=== PATIENT | female | born 1985 | race Two or more races ===

== ENCOUNTER 2021-02-05 09:29 | Outpatient (REF) | payer OTHER, SELFPAY ==
--- NOTE | ~2021-02-05 | US_ITS ---
EXAMINATION: US COMPLETE ABDOMEN WITH LIVER ELASTOGRAPHY CLINICAL INFORMATION: R74.01 - Elevation of levels of liver transaminase levels COMPARISON: None. TECHNIQUE: Real-time imaging of the abdominal viscera. Noninvasive ultrasound liver fibrosis assessment is performed using [employer]isai ElastPQ point quantification shear wave elastography (pSWE) with a C5-2 MHz transducer. Multiple elastography samples are obtained. FINDINGS: PANCREAS: The pancreas is normal in size and contour and echogenicity. No pancreatic ductal distention or retroperitoneal effusion. ABDOMINAL AORTA: The proximal, middle, and distal aortic segments are normal in caliber. INFERIOR VENA CAVA: Visualized portions are normal. LIVER: The liver is normal in size and smooth in contour. The parenchyma areas increased in echogenicity consistent with hepatic steatosis. There is no focal hepatic parenchymal lesion or intrahepatic ductal dilatation. The right lobe measures 15.3 cm in length. The left lobe measures 13.0 cm in length. Portal flow is towards the liver (hepatopetal). Shear wave liver elastography median stiffness is 1.73 m/s (reference: normal median stiffness is 1.3 m/s or less). IQR/median stiffness to assess sampling precision is 0.13 (reference: good quality data set is IQR/median stiffness of 0.15 or less). GALLBLADDER: Normal. The gallbladder is physiologically distended without evidence of stones, sludge, polyps, wall thickening or pericholecystic fluid. COMMON BILE DUCT: Normal in caliber measuring 0.3 cm in diameter. RIGHT KIDNEY: Normal. No hydronephrosis. No renal calculi. The kidney measures 10.3 cm in maximum dimension. There are 2 small cysts, midpole and lower pole, both approximately 1 cm in size. LEFT KIDNEY: Normal. No hydronephrosis. No renal calculi or focal parenchymal lesions. The kidney measures 9.7 cm in maximum dimension. SPLEEN: Normal. The spleen measures 10.4 cm in maximum dimension. FREE FLUID: None. US/US abdomen comp w elastography IMPRESSION: 1. Hepatic steatosis. Liver normal in size. No focal parenchymal lesion. 2. Liver elastography: Measurements are suggestive of compensated advanced chronic liver disease but need further test for confirmation. Note: The stage of liver fibrosis may be overestimated in the setting of elevated liver function tests. 3. No cholelithiasis or ductal dilatation. Normal pancreas. REFERENCE: Society of Radiologists in Ultrasound Liver Stiffness Thresholds (2020): LIVER STIFFNESS THRESHOLDS: *Liver Stiffness equal or less than 1.3 m/s: High probability of being normal. *Liver Stiffness less than 1.7 m/s: In the absence of other known clinical signs, rules out compensated advanced chronic liver disease. *Liver Stiffness 1.7-2.1 m/s: Suggestive of compensated advanced chronic liver disease but need further test for confirmation. *Liver Stiffness over 2.1 m/s: Rules in compensated advanced chronic liver disease. *Liver Stiffness over 2.4 m/s: Suggestive of clinically significant portal hypertension. QUALITY OF DATA SET: *IQR/Median value equal or less than 0.15 implies a quality data set. *IQR/Median value over 0.15 implies a poor quality data set. SIGNIFICANT CHANGE FROM PRIOR EXAM: Significant change if liver stiffness measurement is 10% or greater from prior exam. OTHER CONSIDERATIONS: The stage of liver fibrosis may be overestimated in the setting of acute hepatitis, liver inflammation, elevated liver function tests, hepatic vascular congestion, obstructive cholestasis, non-fasting state, and infiltrative diseases such as amyloidosis and lymphoma. In some patients with NAFLD, the liver stiffness thresholds for compensated advanced chronic liver disease may be lower. In causes other than viral hepatitis and NAFLD, liver stiffness thresholds are not well established.
== END 2021-02-05 09:30 | disposition home or self-care (01) ==
LOC: HO.US 09:29
PROVIDERS: PCP Internal Medicine; Visit Provider Internal Medicine
DX: R74.01 Elevation of levels of liver transaminase levels (principal)
CPT/HCPCS: 76705; 76981

== ENCOUNTER 2021-04-02 10:25 | Outpatient (REF) | payer OTHER, SELFPAY ==
[2021-04-02 11:42] LABS: Alanine Aminotransferase 103 U/L (0-31); Albumin Level 4.4 g/dL (3.5-5.0); Alkaline Phosphatase 145 U/L (39-117); Anion Gap 14 (12-20); Aspartate Amino Transferase 77 U/L (5-31); Bilirubin Total 0.5 mg/dL (0.0-1.0); Blood Urea Nitrogen 6 mg/dL (9-16); Calcium 9.4 mg/dL (8.4-10.2); Carbon Dioxide 27 mmol/L (22-29); Chloride 103 mmol/L (96-108); Cholesterol 221 mg/dL; Estimated Glomerular Filt Rate > 60; Glucose Fasting 170 mg/dL (60-99); HDL Cholesterol 45 mg/dL; LDL Cholesterol Calculated 144 mg/dl; Potassium 3.9 mmol/L (3.3-5.1); Sodium 140 mmol/L (135-145); Total Protein 7.7 g/dL (6.5-8.0); Triglycerides 164 mg/dL
[2021-04-07 12:56] LABS: Vitamin D 25-OH, D2 <4 ng/mL; Vitamin D 25-OH, D3 31 ng/mL; Vitamin D 25-OH, Total 31 ng/mL (30-100)
== END 2021-04-02 10:26 | disposition home or self-care (01) ==
LOC: HO.LAB 10:25
PROVIDERS: PCP Internal Medicine; Visit Provider Internal Medicine
DX: R73.02 Impaired glucose tolerance (oral) (principal); E78.5 Hyperlipidemia, unspecified; E55.9 Vitamin D deficiency, unspecified
CPT/HCPCS: 36415; 80053; 80061; 82306

== ENCOUNTER 2021-04-08 11:02 | Outpatient (REF) | payer OTHER, SELFPAY ==
[2021-04-08 14:15] LABS: HCG Quantitative < 2 mIU/mL; Thyroid Stimulating Hormone 1.45 uIU/mL (0.32-4.0)
[2021-04-09 01:46] LABS: CT PCR NOT DETECTED (Not Detect.); NG PCR NOT DETECTED (Not Detect.)
[2021-04-09 09:09] LABS: BV Int Neg Control Negative (Negative); BV Int Pos Control Positive (Positive)
[2021-04-10 18:51] LABS: Follicle Stimulating Hormone 9.8 mIU/mL; Prolactin 7.5 ng/mL
[2021-04-10 19:17] LABS: DHEA Sulfate 111 mcg/dL (23-266)
[2021-04-11 06:07] LABS: HPV mRNA E6/E7 rflx Not Detected (Not Detected)
[2021-04-13 15:31] LABS: Testosterone, Free 6.4 pg/mL (0.1-6.4); Testosterone, Total 33 ng/dL (2-45)
== END 2021-04-08 11:03 | disposition home or self-care (01) ==
LOC: HO.LAB 11:02
PROVIDERS: PCP Internal Medicine; Visit Provider Advanced Practice Midwife
DX: Z01.411 Encounter for gynecological examination (general) (routine) with abnormal findings (principal); Z11.51 Encounter for screening for human papillomavirus (HPV); N92.6 Irregular menstruation, unspecified; L68.0 Hirsutism; N89.8 Other specified noninflammatory disorders of vagina; R23.2 Flushing; Z20.2 Contact with and (suspected) exposure to infections with a predominantly sexual mode of transmission
CPT/HCPCS: 36415; 82627; 83001; 83498; 84146; 84402; 84403; 84443; 84702; 87480; 87491; 87510; 87591; 87624; 87660; 88142

== ENCOUNTER → 2021-04-15 11:25 | Outpatient (BNVA) | payer OTHER, SELFPAY | PROVIDERS: PCP Internal Medicine; Visit Provider Advanced Practice Midwife | DX: Z71.2 Person consulting for explanation of examination or test findings (principal); N92.6 Irregular menstruation, unspecified | CPT/HCPCS: 99212 ==

== ENCOUNTER 2021-05-28 10:42 | Outpatient (REF) | payer OTHER, SELFPAY ==
[2021-05-28 12:53] LABS: Alanine Aminotransferase 127 U/L (0-31); Albumin Level 4.2 g/dL (3.5-5.0); Alkaline Phosphatase 149 U/L (39-117); Anion Gap 13 (12-20); Aspartate Amino Transferase 95 U/L (5-31); Bilirubin Total 0.6 mg/dL (0.0-1.0); Blood Urea Nitrogen 7 mg/dL (9-16); Calcium 9.5 mg/dL (8.4-10.2); Carbon Dioxide 27 mmol/L (22-29); Chloride 102 mmol/L (96-108); Estimated Glomerular Filt Rate > 60; Glucose Fasting 252 mg/dL (60-99); Potassium 3.7 mmol/L (3.3-5.1); Sodium 138 mmol/L (135-145); Total Protein 7.5 g/dL (6.5-8.0)
[2021-06-01 13:37] LABS: Vitamin D 25-OH, D2 <4 ng/mL; Vitamin D 25-OH, D3 30 ng/mL; Vitamin D 25-OH, Total 30 ng/mL (30-100)
== END 2021-05-28 10:43 | disposition home or self-care (01) ==
LOC: HO.LAB 10:42
PROVIDERS: PCP Internal Medicine; Visit Provider Internal Medicine
DX: R74.01 Elevation of levels of liver transaminase levels (principal); E55.9 Vitamin D deficiency, unspecified
CPT/HCPCS: 36415; 80053; 82306

== ENCOUNTER 2021-08-04 09:29 | Outpatient (REF) | payer OTHER, SELFPAY ==
[2021-08-04 11:26] LABS: MANUAL DIFF FLAG NO
[2021-08-04 11:28] LABS: Basophils Percent Auto 0.3 % (0-2); Eosinophils Absolute Auto 0.1 X10*3/uL (0.0-0.4); Eosinophils Percent Auto 1.3 % (0-4); Hematocrit 40.6 % (37-47); Hemoglobin 13.6 g/dl (12.0-16.0); Imm Gran Abs Auto 0.02 X10*3/uL (0.00-0.03); Imm Gran Pct Auto 0.2 % (0.0-0.4); Lymphocytes Absolute Auto 2.3 X10*3/uL (1.2-4.9); Lymphocytes Percent Auto 24.6 % (20-40); Mean Corpuscular HGB Conc 33.5 g/dl (31.0-35.0); Mean Corpuscular Hemoglobin 26.2 pg (27.0-33.0); Mean Corpuscular Volume 78.2 fL (80-98); Mean Platelet Volume 11.5 fL (9.4-12.3); Monocytes Absolute Auto 0.4 X10*3/uL (0.1-1.2); Monocytes Percent Auto 4.7 % (2-11); Neutrophils Absolute Auto 6.5 X10*3/uL (2.0-8.3); Neutrophils Percent Auto 68.9 % (45-73); Platelet Count 255 X10*3/uL (160-400); Red Blood Count 5.19 X10*6/uL (4.20-5.50); Red Cell Distribution Width 14.3 % (11.0-16.0); White Blood Count 9.4 X10*3/uL (4.8-10.8)
[2021-08-04 12:21] LABS: Ferritin 210 ng/mL (10-122)
[2021-08-04 12:35] LABS: HBS Num1 2.87 mIU/mL (0-7.99); HBsAGNum1 0.22 S/CO (0.00-0.99); HIV AB/AG Nonreactive (Nonreactive); HIV Num 1 0.04 S/CO (0.00-0.99); Hepatitis B Core Antibody Nonreactive (Nonreactive); Hepatitis B Surface Antigen Negative (Negative); ~Hepatitis B Surface Antibody NONREACTIVE (Nonreactive); ~Hepatitis C Antibody Nonreactive (Nonreactive)
[2021-08-04 13:16] LABS: Estimated Average Glucose 220 mg/dL; Hemoglobin A1c % 9.3 %
[2021-08-04 13:32] LABS: Gamma Glutamyl Transpeptidase 94 U/L (7-33)
[2021-08-05 08:33] LABS: ~Hepatitis A Antibody IgM Nonreactive (Nonreactive)
[2021-08-05 10:44] LABS: Hepatitis A Antibody IgM 0.18 Index (0-0.79)
[2021-08-06 12:31] LABS: Anti Nuclear Antibody Screen NEGATIVE (NEGATIVE)
[2021-08-08 00:51] LABS: Smooth Muscle Antibody <20 U (<20)
[2021-08-08 12:02] LABS: Alpha Fetoprotein 2.2 ng/mL
[2021-08-08 13:06] LABS: Mitochondrial Antibodies NEGATIVE (NEGATIVE)
== END 2021-08-04 09:30 | disposition home or self-care (01) ==
LOC: HO.LAB 09:29
PROVIDERS: PCP Internal Medicine; Referring Provider Internal Medicine; Visit Provider Nurse Practitioner
DX: Z01.84 Encounter for antibody response examination (principal); Z11.4 Encounter for screening for human immunodeficiency virus [HIV]; Z11.59 Encounter for screening for other viral diseases; R74.01 Elevation of levels of liver transaminase levels
CPT/HCPCS: 36415; 82105; 82728; 82977; 83036; 85025; 86038; 86039; 86255; 86256; 86704; 86706; 86709; 86803; 87340; 87389; Q3014

== ENCOUNTER → 2021-09-15 08:56 | Outpatient (BNVA) | payer OTHER, SELFPAY | PROVIDERS: PCP Internal Medicine; Visit Provider Nurse Practitioner | DX: K75.81 Nonalcoholic steatohepatitis (NASH) (principal); E11.9 Type 2 diabetes mellitus without complications | CPT/HCPCS: Q3014 ==

== ENCOUNTER 2021-10-29 08:18 | Outpatient (REF) | payer OTHER, SELFPAY ==
[2021-10-30 10:08] LABS: BV Int Neg Control Negative (Negative); BV Int Pos Control Positive (Positive)
== END 2021-10-29 08:19 | disposition home or self-care (01) ==
LOC: HO.LAB 08:18
PROVIDERS: PCP Internal Medicine; Visit Provider Advanced Practice Midwife
DX: Z30.432 Encounter for removal of intrauterine contraceptive device (principal); N89.8 Other specified noninflammatory disorders of vagina; L28.0 Lichen simplex chronicus
CPT/HCPCS: 58301; 87480; 87510; 87660

== ENCOUNTER → 2021-11-12 10:04 | Outpatient (BNVA) | payer OTHER, SELFPAY | PROVIDERS: PCP Internal Medicine; Visit Provider Dietitian, Registered | DX: E11.65 Type 2 diabetes mellitus with hyperglycemia (principal); K75.81 Nonalcoholic steatohepatitis (NASH) | CPT/HCPCS: 97802 ==

== ENCOUNTER 2021-12-18 09:29 | Outpatient (REF) | payer OTHER, SELFPAY ==
[2021-12-18 11:51] LABS: Alanine Aminotransferase 98 U/L (0-31); Albumin Level 3.8 g/dL (3.5-5.0); Alkaline Phosphatase 132 U/L (39-117); Anion Gap 14 (12-20); Aspartate Amino Transferase 51 U/L (5-31); Bilirubin Direct 0.2 mg/dL (0.0-0.5); Bilirubin Total 0.2 mg/dL (0.0-1.0); Blood Urea Nitrogen 6 mg/dL (9-16); Carbon Dioxide 23 mmol/L (22-29); Chloride 104 mmol/L (96-108); Cholesterol 206 mg/dL; Estimated Glomerular Filt Rate > 60; Glucose Fasting 226 mg/dL (60-99); HDL Cholesterol 37 mg/dL; LDL Cholesterol Calculated 137 mg/dl; Potassium 3.9 mmol/L (3.3-5.1); Sodium 137 mmol/L (135-145); Total Protein 7.1 g/dL (6.5-8.0); Triglycerides 160 mg/dL
[2021-12-18 12:24] LABS: Creatinine Urine 98.38 mg/dL
[2021-12-22 08:35] LABS: Alpha Fetoprotein 2.1 ng/mL
[2021-12-24 12:22] LABS: Vitamin D 25-OH, D2 <4 ng/mL; Vitamin D 25-OH, D3 27 ng/mL; Vitamin D 25-OH, Total 27 ng/mL (30-100)
== END 2021-12-18 09:30 | disposition home or self-care (01) ==
LOC: HO.LAB 09:29
PROVIDERS: PCP Internal Medicine; Referring Provider Internal Medicine; Visit Provider Nurse Practitioner
DX: K75.81 Nonalcoholic steatohepatitis (NASH) (principal); E11.9 Type 2 diabetes mellitus without complications; E55.9 Vitamin D deficiency, unspecified; E78.5 Hyperlipidemia, unspecified
CPT/HCPCS: 36415; 80053; 80061; 80076; 82043; 82105; 82248; 82306; 99212

== ENCOUNTER → 2021-12-23 10:46 | Outpatient (BNVA) | payer OTHER, SELFPAY | PROVIDERS: PCP Internal Medicine; Visit Provider Dietitian, Registered | DX: E11.65 Type 2 diabetes mellitus with hyperglycemia (principal); K75.81 Nonalcoholic steatohepatitis (NASH) | CPT/HCPCS: 97803 ==

== ENCOUNTER → 2022-02-04 10:05 | Outpatient (BNVA) | payer OTHER, SELFPAY | PROVIDERS: PCP Internal Medicine; Visit Provider Dietitian, Registered | DX: E11.65 Type 2 diabetes mellitus with hyperglycemia (principal); K75.81 Nonalcoholic steatohepatitis (NASH) | CPT/HCPCS: 97803 ==

== ENCOUNTER → 2022-03-23 10:27 | Outpatient (BNVA) | payer OTHER, SELFPAY | PROVIDERS: PCP Internal Medicine; Visit Provider Dietitian, Registered | DX: E11.65 Type 2 diabetes mellitus with hyperglycemia (principal); K75.81 Nonalcoholic steatohepatitis (NASH) | CPT/HCPCS: 97803 ==

== ENCOUNTER → 2022-04-13 10:14 | Outpatient (BNVA) | payer OTHER, SELFPAY | PROVIDERS: PCP Internal Medicine; Visit Provider Advanced Practice Midwife | DX: Z13.89 Encounter for screening for other disorder (principal) ==

== ENCOUNTER 2022-06-21 09:37 | Outpatient (REF) | payer OTHER, SELFPAY ==
--- NOTE | ~2022-06-21 | US_ITS ---
EXAMINATION: US ABDOMEN LIMITED CLINICAL INFORMATION: Nonalcoholic steatohepatitis (MIRANDA). COMPARISON: US abdomen complete with liver elastography 02/05/2021. TECHNIQUE: Real-time imaging of the right upper quadrant abdominal viscera. FINDINGS: PANCREAS: Normal in size and contour and echogenicity. No pancreatic ductal distention. LIVER: Normal in size and smooth in contour. There is increased hepatic parenchymal echogenicity consistent with hepatic steatosis. No focal hepatic parenchymal lesion or intrahepatic biliary ductal dilatation. Color Doppler shows portal flow towards the liver. GALLBLADDER: Normal. The gallbladder is physiologically distended without evidence of stones, sludge, polyps, wall thickening or pericholecystic fluid. COMMON BILE DUCT: Normal in caliber measuring 0.4 cm in diameter. RIGHT KIDNEY: Normal in size measuring 9.7 cm in length. There is normal parenchymal thickness and echogenicity. No hydronephrosis or visible calculi. There are small cysts interpolar region 1.2 cm and lower pole 1.1 cm. No additional imaging follow-up recommended. FREE FLUID: None. US/US abdomen limited IMPRESSION: -Hepatic steatosis. No focal parenchymal lesion. -Portal flow towards the liver. No ascites. -No cholelithiasis or ductal dilatation.
== END 2022-06-21 09:38 | disposition home or self-care (01) ==
LOC: HO.US 09:37
PROVIDERS: Visit Provider Nurse Practitioner
DX: K75.81 Nonalcoholic steatohepatitis (NASH) (principal)
CPT/HCPCS: 76705

== ENCOUNTER 2022-07-14 10:55 | Outpatient (REF) | payer OTHER, SELFPAY ==
[2022-07-14 12:15] LABS: Alanine Aminotransferase 58 U/L (0-31); Albumin Level 4.1 g/dL (3.5-5.0); Alkaline Phosphatase 110 U/L (39-117); Aspartate Amino Transferase 51 U/L (5-31); Bilirubin Direct 0.2 mg/dL (0.0-0.5); Bilirubin Total 0.4 mg/dL (0.0-1.0); Total Protein 7.3 g/dL (6.5-8.0)
[2022-07-14 12:42] LABS: Vitamin D 25-OH Total 27.8 ng/mL (>30)
[2022-07-14 14:04] LABS: Creatinine Urine 203.54 mg/dL; Microalbum/Creatinine Ratio Ur 8.8 ug/mg cr
[2022-07-16 13:41] LABS: Alpha Fetoprotein 1.6 ng/mL
== END 2022-07-14 10:56 | disposition home or self-care (01) ==
LOC: HO.LAB 10:55
PROVIDERS: PCP Internal Medicine; Visit Provider Nurse Practitioner
DX: K75.81 Nonalcoholic steatohepatitis (NASH) (principal); E55.9 Vitamin D deficiency, unspecified; E11.9 Type 2 diabetes mellitus without complications
CPT/HCPCS: 36415; 80076; 82043; 82105; 82306; 99212

== ENCOUNTER 2022-08-04 14:37 | Emergency (ER) | payer OTHER, SELFPAY ==
[2022-08-04 15:28] VITALS: BP 136/67; PULSE 85; RESP 18; TEMP 36.9; O2SAT 98; BMI 37.3
[2022-08-04 20:27] VITALS: BP 119/88; PULSE 83; RESP 16; TEMP 36.8; O2SAT 99
--- NOTE | 2022-08-04 21:43 | ED_ITS ---
HPI - Ear Problem General Chief complaint: Ear Problems Stated complaint: R ear/eye pain Time Seen by Provider: 08/04/22 17:37 History of Present Illness HPI Narrative: 37-year-old female presents with right ear and sinus pain. Patient states that she for the past 3 days she has felt a constant pressure/pain in her right ear, as well as her right sinuses with associated headache. Denies fever, chills, vision changes, nausea, vomiting, diarrhea,nasal congestion, rhinorrhea, sore throat, cough, shortness of breath, chest pain. Denies discharge from ear, denies sick contacts. patient has not tried anything to relieve her symptoms. MD Complaint: ear pain Location: right ear Duration: constant Severity: mild Discharge from ear: no Associated symptoms ear: headache Related Data Home Medications Medication Instructions Recorded Confirmed naproxen 375 mg tablet 375 mg PO BID PRN 01/26/21 06/23/22 naratriptan 2.5 mg tablet 2.5 mg PO DAILY PRN 07/14/22 Previous Rx's Medication Instructions Recorded blood sugar diagnostic (FreeStyle #100 ea 05/28/21 Test strips) blood-glucose meter (FreeStyle #1 ea 05/28/21 [place] kit) lancets 28 gauge (FreeStyle #100 ea 05/28/21 Lancets) clotrimazole-betamethasone 1 1 appl topical BID PRN itching 7 10/29/21 %-0.05 % topical cream days #45 grams trazodone 50 mg tablet 50 mg PO BEDTIME PRN sleep 90 days 02/18/22 #90 tabs citalopram 20 mg tablet 20 mg PO DAILY 90 days #90 tabs 05/20/22 metformin 500 mg tablet 500 mg PO BID 90 days #180 tabs 06/29/22 cetirizine 10 mg tablet (Zyrtec) 10 mg PO DAILY #14 tabs 08/04/22 fluticasone propionate 50 1 spray intranasal BID #16 grams 08/04/22 mcg/actuation nasal spray,suspension (Flonase Allergy Relief) ibuprofen 600 mg tablet 600 mg PO Q8H PRN headache #14 08/04/22 tabs Allergies Allergy/AdvReac Type Severity Reaction Status Date / Time tetracycline [Tetracycline] Allergy Mild SWELLING Verified 07/14/22 10:29 Review of Systems Review of Systems: Constitutional: No Fever, No Chills ENT/Mouth: +right ear pain/pressure, +sinus pressure. No sore throat, No Rhinorrhea, No Swallowing Difficulty Eyes: + watery right eye, No Eye Pain, No Swelling, No Redness Cardiovascular: No Chest Pain, No SOB, No Orthopnea, No Edema Respiratory: No Cough, No Sputum, No Wheezing, No dyspnea Gastrointestinal: No Nausea, No Vomiting, No Diarrhea, No abdominal Pain, No Hematochezia, No Melena Genitourinary: No Dysuria, No Urinary Frequency, No Hematuria Musculoskeletal: No joint pain, No Myalgias Skin: No Skin Lesions, No rash Neuro: + Headache, No Weakness, No Numbness, No Dizziness Psych: No Anxiety/Panic, No Depression PMFSH Past Medical History Medical History Depression Diabetes mellitus Hypovitaminosis D Impaired glucose tolerance Insomnia Migraines Mild recurrent major depression Obese Transaminitis Surgical History Encounter for IUD removal H/O colonoscopy H/O LEEP Family History Family History Father Heart disease CVD (cardiovascular disease) Prostate cancer Mother Drug overdose Maternal Grandmother No problems noted. Maternal Grandfather No problems noted. Paternal Grandmother No problems noted. Paternal Grandfather No problems noted. Son In good health Son In good health Sister In good health Brother No problems noted. Brother No problems noted. Brother No problems noted. Social History Social History Housing: Apartment Alcohol intake: never Patient Tobacco Use Status: Never used Tobacco Tobacco use type: Cigarette e-Cigarette/Vaping Use: Never Used Second Hand Smoke Exposure: No Advance Directives: No Advance Directives Information Provided: No service: No Current occupational status: employed Physical Exam Vital Signs: Vital Signs: Last Vital Signs Temp 98.2 F 08/04/22 20:27 Pulse 83 08/04/22 20:27 Resp 16 08/04/22 20:27 BP 119/88 08/04/22 20:27 Pulse Ox 99 08/04/22 20:27 O2 Del Method 08/04/22 20:27 BMI result Body Mass Index 37.3 Const: Other: Appearance: Alert. Oriented X3. No acute distress. Eyes: Pupils equal, round and reactive to light. ENT: + bilateral serous effusion right worse than left, No erythema or bulging, external canals clear. Pharynx normal. Neck: Normal inspection. Neck supple. CVS: Normal heart rate and rhythm. Pulses normal. Respiratory: No respiratory distress. Breath sounds normal. Skin: Skin warm and dry. Normal skin color. Normal skin turgor. No rashes. Extremities: No lower extremity edema. Neuro: Oriented X 3. No motor deficit. No sensory deficit. Course Course Course Narrative: 37-year-old female presenting with 3 days of right ear pain/pressure and right sinus pressure with associated headache. On exam, patient afebrile, VSS, serous effusions of bilateral TMs with the right being more pronounced, no erythema or bulging, not consistent with infection, oropharynx clear. presentation consistent with early viral rhinosinusitis, no indication of bacterial infection. Will provide medication for symptomatic relief. Patient is stable to be discharged home. Critical Care Time Critical Care Time Critical Care Time: No Discharge Plan Discharge Clinical Impression: Rhinosinusitis Patient Disposition: Home, Self-Care Instructions: Rhinosinusitis (ED) Additional Instructions: Take medications as prescribed. If you develop new or worsening symptoms call 911 or come back to the ER for further evaluation. Prescriptions: New fluticasone propionate [Flonase Allergy Relief] 50 mcg/actuation spray,suspension 1 spray intranasal BID Qty: 16 0RF Rx Instructions: administer into each nostril 1 time in the morning and 1 time at night ibuprofen 600 mg tablet 600 mg PO Q8H PRN (Reason: headache) Qty: 14 0RF cetirizine [Zyrtec] 10 mg tablet 10 mg PO DAILY Qty: 14 0RF No Action trazodone 50 mg tablet 50 mg PO BEDTIME PRN (Reason: sleep) 90 Days Qty: 90 3RF citalopram 20 mg tablet 20 mg PO DAILY 90 Days Qty: 90 1RF metformin 500 mg tablet 500 mg PO BID 90 Days Qty: 180 0RF naproxen 375 mg tablet 375 mg PO BID PRN (DME) blood-glucose meter [FreeStyle [place]] Kit See Rx Instructions .ROUTE .MEDSUPPLY Qty: 1 0RF Rx Instructions: As directed (DME) lancets [FreeStyle Lancets] 28 gauge misc See Rx Instructions .ROUTE .MEDSUPPLY Qty: 100 3RF Rx Instructions: Use 1 lancet once a day (DME) FreeStyle Test Strip See Rx Instructions .ROUTE .MEDSUPPLY Qty: 100 3RF Rx Instructions: Use 1 test strip once a day clotrimazole-betamethasone 1-0.05 % cream 1 appl topical BID PRN (Reason: itching) 7 Days Qty: 45 0RF naratriptan 2.5 mg tablet 2.5 mg PO DAILY PRN Interventions: ED Discharge Assessment Last Done: 08/04/22 22:30 Discharge Date/Time: 08/04/22 22:32
== END 2022-08-04 22:32 | disposition home or self-care (01) ==
PROVIDERS: Emergency Provider Internal Medicine; PCP Internal Medicine
DX: J32.9 Chronic sinusitis, unspecified (principal); E11.9 Type 2 diabetes mellitus without complications; Z79.84 Long term (current) use of oral hypoglycemic drugs
CPT/HCPCS: 99282; 99283

== ENCOUNTER → 2022-08-10 12:54 | Outpatient (BNVA) | payer OTHER, SELFPAY | PROVIDERS: PCP Internal Medicine; Visit Provider Dietitian, Registered | DX: E11.65 Type 2 diabetes mellitus with hyperglycemia (principal); K75.81 Nonalcoholic steatohepatitis (NASH); Z71.3 Dietary counseling and surveillance | CPT/HCPCS: 97803 ==

== ENCOUNTER 2022-10-27 10:06 | Outpatient (REF) | payer OTHER, SELFPAY ==
[2022-10-27 11:08] LABS: Alanine Aminotransferase 38 U/L (0-31); Albumin Level 4.3 g/dL (3.5-5.0); Alkaline Phosphatase 115 U/L (39-117); Anion Gap 15 (12-20); Aspartate Amino Transferase 27 U/L (5-31); Bilirubin Total 0.5 mg/dL (0.0-1.0); Blood Urea Nitrogen 6 mg/dL (9-16); Calcium 9.4 mg/dL (8.4-10.2); Carbon Dioxide 26 mmol/L (22-29); Chloride 105 mmol/L (96-108); Cholesterol 248 mg/dL; Estimated Glomerular Filt Rate > 60; Glucose Fasting 119 mg/dL (60-99); HDL Cholesterol 50 mg/dL; LDL Cholesterol Calculated 173 mg/dl; Potassium 3.8 mmol/L (3.3-5.1); Sodium 142 mmol/L (135-145); Total Protein 7.4 g/dL (6.5-8.0); Triglycerides 129 mg/dL
== END 2022-10-27 10:07 | disposition home or self-care (01) ==
LOC: HO.LAB 10:06
PROVIDERS: PCP Internal Medicine; Visit Provider Internal Medicine
DX: E11.65 Type 2 diabetes mellitus with hyperglycemia (principal); K75.81 Nonalcoholic steatohepatitis (NASH); E78.5 Hyperlipidemia, unspecified; Z71.3 Dietary counseling and surveillance
CPT/HCPCS: 36415; 80053; 80061; 97803

== ENCOUNTER → 2023-02-09 15:22 | Outpatient (BNVA) | payer OTHER, SELFPAY | PROVIDERS: PCP Internal Medicine; Referring Provider Internal Medicine; Visit Provider Nurse Practitioner | DX: E11.65 Type 2 diabetes mellitus with hyperglycemia (principal); K75.81 Nonalcoholic steatohepatitis (NASH); R74.01 Elevation of levels of liver transaminase levels | CPT/HCPCS: 99212 ==

== ENCOUNTER → 2023-02-14 13:56 | Outpatient (BNVA) | payer OTHER, SELFPAY | PROVIDERS: PCP Internal Medicine; Visit Provider Dietitian, Registered | DX: E11.65 Type 2 diabetes mellitus with hyperglycemia (principal); K75.81 Nonalcoholic steatohepatitis (NASH) | CPT/HCPCS: 97803 ==

== ENCOUNTER 2023-03-04 20:28 | Emergency (ER) | payer OTHER, SELFPAY ==
[2023-03-04 20:49] VITALS: BP 120/82; PULSE 73; RESP 18; TEMP 36.3; O2SAT 98; BMI 36.3
--- NOTE | 2023-03-04 22:31 | ED_ITS ---
HPI - General Adult General Chief complaint: Eye Problems Stated complaint: R sided head pain and pink eye, sinus infection? Time Seen by Provider: 03/04/23 22:21 Source: patient, RN notes reviewed and old records reviewed Mode of arrival: ambulatory Limitations: no limitations History of Present Illness HPI narrative: 37-year-old female past medical history significant for diabetes, obesity, migraines, MIRANDA, hyperlipidemia presents for evaluation of right eye redness. Patient reports 3 days of itching and burning to her right eye. There is some watery discharge. She has no change to her vision. The patient does wear glasses as needed but does not were contacts She also reports nasal congestion and has been using nasal spray with minimal relief Denies any headache Denies getting anything in her eye but states she was ?cleaning and dusting the day before it got red. ? Related Data Home Medications Medication Instructions Recorded Confirmed naratriptan 2.5 mg tablet 2.5 mg PO DAILY PRN 07/14/22 11/16/22 Previous Rx's Medication Instructions Recorded blood sugar diagnostic (FreeStyle #100 ea 05/28/21 Test strips) blood-glucose meter (FreeStyle #1 ea 05/28/21 [place] kit) lancets 28 gauge (FreeStyle #100 ea 05/28/21 Lancets) clotrimazole-betamethasone 1 1 appl topical BID PRN itching 7 10/29/21 %-0.05 % topical cream days #45 grams cetirizine 10 mg tablet (Zyrtec) 10 mg PO DAILY #14 tabs 08/04/22 ibuprofen 600 mg tablet 600 mg PO Q8H PRN headache #14 08/04/22 tabs adult diapers briefs #120 ea 10/30/22 underpads 30 X 36 (Certainty #48 ea 10/30/22 Underpads) atorvastatin 20 mg tablet 20 mg PO BEDTIME 90 days #90 tabs 11/16/22 cholecalciferol (vitamin D3) 25 25 mcg PO DAILY 90 days #90 caps 11/16/22 mcg (1,000 unit) capsule cromolyn 4 % eye drops 1 drp ophthalmic (eye) 6XD PRN 11/16/22 itchiness in eyes 7 days #10 mL fluocinolone acetonide oil 0.01 % 5 drp otic (ear) left BID 7 days 11/16/22 ear drops (DermOtic Oil) #20 mL naproxen 375 mg tablet 375 mg PO BID PRN pain 30 days #60 11/16/22 tabs citalopram 20 mg tablet 20 mg PO DAILY 90 days #90 tabs 12/13/22 metformin 500 mg tablet 500 mg PO BID 90 days #180 tabs 12/31/22 trazodone 50 mg tablet 50 mg PO BEDTIME PRN sleep 90 days 02/13/23 #90 tabs fluticasone propionate 50 1 spray intranasal BID #16 grams 03/03/23 mcg/actuation nasal spray,suspension (Flonase Allergy Relief) ciprofloxacin HCl 0.3 % eye drops See Rx Instructions ophthalmic 03/04/23 (eye) .COMPLEX #5 mL Allergies Allergy/AdvReac Type Severity Reaction Status Date / Time tetracycline [Tetracycline] Allergy Mild SWELLING Verified 03/04/23 20:53 Review of Systems Constitutional: Constitutional: Reports as per HPI, Denies chills, Denies fever(s) and Denies headache(s) Eyes: Eyes: Denies blurry vision, Reports eye discharge, Denies dry eyes, Denies irritation, Reports itchy eyes, Denies loss of vision and Reports eye pain ENT: Denies headache(s) Respiratory: Respiratory: Denies cough Neurologic: Denies headache(s), Denies focal weakness and Denies loss of vision Allergic/Immunologic: Allergic/Immunologic: Reports itchy eyes PMFSH Past Medical History Medical History Depression Diabetes mellitus Hypovitaminosis D Impaired glucose tolerance Insomnia Migraines Mild recurrent major depression Obese Transaminitis Surgical History Encounter for IUD removal H/O colonoscopy H/O LEEP Family History Family History Father Heart disease CVD (cardiovascular disease) Prostate cancer Mother Diabetes mellitus Maternal Grandmother No problems noted. Maternal Grandfather No problems noted. Paternal Grandmother No problems noted. Paternal Grandfather No problems noted. Son In good health Son In good health Sister In good health Brother No problems noted. Brother No problems noted. Brother No problems noted. Social History Social History Housing: Apartment Alcohol intake: never Patient Tobacco Use Status: Never used Tobacco e-Cigarette/Vaping Use: Never Used Second Hand Smoke Exposure: No Advance Directives: No Advance Directives Information Provided: No service: No Current occupational status: employed Cognitive needs: No Hearing needs: No Vision needs: No Physical Exam ED Vital Signs: Vital Signs - 24 hr 03/04/23 20:49 Temperature 97.3 F Pulse Rate 73 Respiratory Rate 18 Blood Pressure 120/82 Pulse Oximetry 98 Oxygen Delivery Method Room Air BMI result Body Mass Index 36.3 Const General: healthy appearing, comfortable, no acute distress, alert and awake Nutritional Appearance: well nourished Orientation/consciousness: patient oriented x3 HENMT Head: Yes normocephalic and Yes atraumatic Throat: Yes posterior oropharynx normal Eyes Other: No obvious foreign body Eyelids: Yes eyelid abnormality (Mild right upper eyelid edema, blepharitis) Conjunctivae: conjunctival abnormal right conjunctival injection; without chemosis and without subconjunctival hemmorhages Sclerae: sclerae normal Corneas: corneas normal Pupils: Equal, round and reactive pupils present EOM: EOMs intact bilaterally Neck Neck: Yes full ROM Resp Effort & Inspection: normal respiratory effort, able to speak in complete sentences, no audible wheezes and not labored Auscultation: clear to auscultation bilaterally Cardio Rate: regular rate Rhythm: regular rhythm GI Inspection: No distended Palpation (GI): Soft to palpation, not firm, nontender, no guarding and not rigid Auscultation: normoactive bowel sounds Skin General skin exam: no rashes or lesions noted and elasticity normal Neuro General: patient oriented x3 Cranial nerves: Yes CN's II-XII intact bilaterally, Yes Equal, round and reactive pupils present and Yes Bilaterally intact EOM present Cognition (Neuro): normal cognition Extrem Other: Moving all extremities well without any obvious deformities Medical Decision Making Medical Decision Making MDM Narrative: 37-year-old female presents for evaluation of red, itchy eye with discharge, consistent with conjunctivitis. No foreign body noted, patient was not working with metal or anything to suggest foreign body. She has no visual changes will treat with topical eyedrops Differential Diagnosis Conjunctivitis Viral conjunctivitis Foreign body Glaucoma Papilledema Iritis Discharge Plan Discharge Clinical Impression: Acute conjunctivitis, right eye Patient Disposition: Home, Self-Care Instructions: Conjunctivitis (ED) Additional Instructions: Use ciprofloxacin eyedrops as directed. You may follow-up with Dr. Roa if her symptoms do not improve after the treatment Prescriptions: New ciprofloxacin HCl 0.3 % drops See Rx Instructions .ROUTE .COMPLEX Qty: 5 0RF Rx Instructions: put 1-2 drps in affected eye(s) every 2hr up to 8 times/day x2days; then 4 times/day x5days No Action (DME) adult diapers briefs XL See Rx Instructions .Route .MEDSUPPLY Qty: 120 1RF Rx Instructions: As directed (DME) underpads [Certainty Underpads] 30 X 36 pad See Rx Instructions .Route Qty: 48 3RF Rx Instructions: As directed citalopram 20 mg tablet 20 mg PO DAILY 90 Days Qty: 90 1RF metformin 500 mg tablet 500 mg PO BID 90 Days Qty: 180 0RF trazodone 50 mg tablet 50 mg PO BEDTIME PRN (Reason: sleep) 90 Days Qty: 90 3RF fluticasone propionate [Flonase Allergy Relief] 50 mcg/actuation spray,suspension 1 spray intranasal BID Qty: 16 0RF Rx Instructions: administer into each nostril 1 time in the morning and 1 time at night ibuprofen 600 mg tablet 600 mg PO Q8H PRN (Reason: headache) Qty: 14 0RF cetirizine [Zyrtec] 10 mg tablet 10 mg PO DAILY Qty: 14 0RF (DME) blood-glucose meter [FreeStyle [place]] Kit See Rx Instructions .ROUTE .MEDSUPPLY Qty: 1 0RF Rx Instructions: As directed (DME) lancets [FreeStyle Lancets] 28 gauge misc See Rx Instructions .ROUTE .MEDSUPPLY Qty: 100 3RF Rx Instructions: Use 1 lancet once a day (DME) FreeStyle Test Strip See Rx Instructions .ROUTE .MEDSUPPLY Qty: 100 3RF Rx Instructions: Use 1 test strip once a day cromolyn 4 % drops 1 drp ophthalmic (eye) 6XD PRN (Reason: itchiness in eyes) 7 Days Qty: 10 0RF fluocinolone acetonide oil [DermOtic Oil] 0.01 % drops 5 drp otic (ear) left BID 7 Days Qty: 20 0RF atorvastatin 20 mg tablet 20 mg PO BEDTIME 90 Days Qty: 90 1RF cholecalciferol (vitamin D3) 25 mcg (1,000 unit) capsule 25 mcg PO DAILY 90 Days Qty: 90 1RF naproxen 375 mg tablet 375 mg PO BID PRN (Reason: pain) 30 Days Qty: 60 1RF clotrimazole-betamethasone 1-0.05 % cream 1 appl topical BID PRN (Reason: itching) 7 Days Qty: 45 0RF naratriptan 2.5 mg tablet 2.5 mg PO DAILY PRN
== END 2023-03-04 22:58 | disposition home or self-care (01) ==
PROVIDERS: Emergency Provider Emergency Medicine; PCP Internal Medicine
DX: H10.31 Unspecified acute conjunctivitis, right eye (principal)
CPT/HCPCS: 99283

== ENCOUNTER 2023-04-19 10:08 | Outpatient (REF) | payer OTHER, SELFPAY ==
[2023-04-22 02:29] LABS: HPV mRNA E6/E7 rflx Not Detected (Not Detected)
== END 2023-04-19 10:09 | disposition home or self-care (01) ==
LOC: HO.LNP 10:08
PROVIDERS: PCP Internal Medicine; Visit Provider Obstetrics & Gynecology
DX: Z01.419 Encounter for gynecological examination (general) (routine) without abnormal findings (principal)
CPT/HCPCS: 87624; 88142

== ENCOUNTER 2023-06-28 12:49 | Outpatient (AMB) | payer OTHER, SELFPAY ==
[2023-06-28 13:12] VITALS: BMI 38.2
--- NOTE | 2023-06-28 13:12 | MHC.AMNUTRGE ---
Intake VS Expanded 06/28/23 13:12 Height 4 ft 11 in Weight 189 lb 6.033 oz BMI 38.2 Intake Visit Reasons: T2DM /fatty liver Allergies tetracycline [Tetracycline] Allergy (Mild, Verified 04/19/23 10:19) SWELLING HPI Nutrition Presentation Details Pt presents for MNT follow for T2DM, MIRANDA Patient reports finding herself increasing advanced on sweets and increase portions of higher fat foods. Today will review low saturated fat food options Most Recent Diabetes Results: Cholesterol 248 mg/dL 10/27/22 HDL Cholesterol 50 mg/dL 10/27/22 Triglycerides 129 mg/dL 10/27/22 Creatinine 0.81 mg/dL (0.5-1.4) 10/27/22 Blood Urea Nitrogen 6 mg/dL (9-16) L 10/27/22 Sodium 142 mmol/L (135-145) 10/27/22 Potassium 3.8 mmol/L (3.3-5.1) 10/27/22 Chloride 105 mmol/L (96-108) 10/27/22 Carbon Dioxide 26 mmol/L (22-29) 10/27/22 Calcium 9.4 mg/dL (8.4-10.2) 10/27/22 AST 27 U/L (5-31) 10/27/22 ALT 38 U/L (0-31) H 10/27/22 Total Protein 7.4 g/dL (6.5-8.0) 10/27/22 Albumin 4.3 g/dL (3.5-5.0) 10/27/22 [facility] Medical History (Updated 04/19/23 @ 10:33 by Solomon White MD) Depression Diabetes mellitus Hypovitaminosis D Impaired glucose tolerance Insomnia Migraines Mild recurrent major depression Obese Transaminitis Surgical History (Updated 04/19/23 @ 10:33 by Solomon White MD) Encounter for IUD removal H/O colonoscopy H/O LEEP Family History Father Heart disease CVD (cardiovascular disease) Prostate cancer Mother Diabetes mellitus Maternal Grandmother No problems noted. Maternal Grandfather No problems noted. Paternal Grandmother No problems noted. Paternal Grandfather No problems noted. Son In good health Son In good health Sister In good health Brother No problems noted. Brother No problems noted. Brother No problems noted. Social History Household Members Other:: son Housing: Apartment Alcohol intake: never Patient Tobacco Use Status: Never used Tobacco e-Cigarette/Vaping Use: Never Used Second Hand Smoke Exposure: No service: No Current occupational status: employed and disabled Current occupational exposures/hazards: No Sexual orientation: Straight/Heterosexual Gender identity: Female Cognitive needs: No Hearing needs: No Vision needs: No Female Reproductive History Menstrual Age of Menarche: 12 Assessment & Plan Assessment & Plan (1) Diabetes mellitus: Code(s): E11.9 - Type 2 diabetes mellitus without complications Qualifiers: Diabetes mellitus complication status: with hyperglycemia Diabetes mellitus penitentiary insulin use: without penitentiary use Diabetes mellitus type: type 2 Qualified Code(s): E11.65 - Type 2 diabetes mellitus with hyperglycemia (2) MIRANDA (nonalcoholic steatohepatitis): Code(s): K75.81 - Nonalcoholic steatohepatitis (MIRANDA) Plan Will discuss weight loss via reducing sugars and increasing physical activity Pt's set goal (Date:02/14/23 ) increase physical activity 10 minutes daily Follow-up (06/28/2023) patient reports not meeting goal Used wt :86kg Est kcal as per MSJ: 1751-400 = 1351 (40% carb, 30% fat/prot) Est fluid needs: 2150 ml/d (25 ml/kg bw) Rec fiber: increase to 8-10 g per day and gradually increase to 25 g/d as tolerated Rec Na: < 1500 mg /d Educate patient on: (R= Reviewed, V = verbalizes understanding N/R= Needs review N/A= not applicable) Food sources of carbohydrates and serving adequate serving sizes : R Difference between complex carbohydrates and simple carbohydrates, role of fiber: R V Differences between fats (MUFA/PUFA/saturated fats, trans fats) and food sources of various fats: R Food sources of sodium and salt and healthy modifications for heart health and kidney health: R N/R Vitamins and minerals: N/R How to interpret food labels: R (fats) Healthy Plate method concept: R V Physical activity: benefits and precaution: R V Patient Instructions: Reduce on saturated fats (fried foods, baked goods, sausages, fried meats, pork ) choose baked chicken/poultry, fish, egg whites Choose baked Make a routine of having a fruit instead the pastry Engage in physical activity walk 30 minutes per day as tolerated Coding Level of Care Code Nutr Indiv Subseq (39240) Diagnoses Diabetes mellitus E11.65 Diabetes mellitus complication status: with hyperglycemia Diabetes mellitus long term care social worker insulin use: without long term care social worker use Diabetes mellitus type: type 2 MIRANDA (nonalcoholic steatohepatitis) K75.81 Time Spent (min) 30
== END 2023-06-28 13:36 | disposition home or self-care (01) ==
PROVIDERS: PCP Internal Medicine; Visit Provider Dietitian, Registered
DX: E11.65 Type 2 diabetes mellitus with hyperglycemia (principal); K75.81 Nonalcoholic steatohepatitis (NASH)

== ENCOUNTER → 2023-06-28 12:49 | Outpatient (BNVA) | payer OTHER, SELFPAY | PROVIDERS: Visit Provider Dietitian, Registered | DX: E11.65 Type 2 diabetes mellitus with hyperglycemia (principal); K75.81 Nonalcoholic steatohepatitis (NASH) | CPT/HCPCS: 97803 ==

== ENCOUNTER 2023-07-15 10:46 | Outpatient (REF) | payer OTHER, SELFPAY ==
[2023-07-15 12:36] LABS: Creatinine Urine 98.95 mg/dL; Microalbumin Urine < 5.0 mg/L
[2023-07-15 12:46] LABS: Alanine Aminotransferase 17 U/L (0-31); Albumin Level 4.2 g/dL (3.5-5.0); Alkaline Phosphatase 125 U/L (39-117); Anion Gap 14 (12-20); Aspartate Amino Transferase 20 U/L (5-31); Bilirubin Total 0.4 mg/dL (0.0-1.0); Blood Urea Nitrogen 8 mg/dL (9-16); Calcium 9.7 mg/dL (8.4-10.2); Carbon Dioxide 26 mmol/L (22-29); Chloride 107 mmol/L (96-108); Cholesterol 141 mg/dL; Estimated Glomerular Filt Rate > 60; Glucose Fasting 115 mg/dL (60-99); HDL Cholesterol 44 mg/dL; LDL Cholesterol Calculated 87 mg/dl; Potassium 3.9 mmol/L (3.3-5.1); Sodium 143 mmol/L (135-145); Total Protein 7.7 g/dL (6.5-8.0); Triglycerides 53 mg/dL
[2023-07-15 13:00] LABS: Vitamin D 25-OH Total 43.9 ng/mL (>30)
== END 2023-07-15 10:47 | disposition home or self-care (01) ==
LOC: HO.LAB 10:46
PROVIDERS: PCP Internal Medicine; Visit Provider Internal Medicine
DX: Z00.00 Encounter for general adult medical examination without abnormal findings (principal); E55.9 Vitamin D deficiency, unspecified; E11.9 Type 2 diabetes mellitus without complications; E78.5 Hyperlipidemia, unspecified
CPT/HCPCS: 36415; 80053; 80061; 82043; 82306

== ENCOUNTER 2023-07-25 13:28 | Outpatient (AMB) | payer OTHER, SELFPAY ==
--- NOTE | 2023-07-25 13:30 | MHC.PC.OV ---
Vital Signs 07/25/23 13:31 Height 4 ft 11 in Weight 184 lb BMI 37.2 BP 110/82 Blood Pressure Location Lt brachial Position Sitting Intake Visit Reasons: dm Intake Note: Patient here for a follow up DM Charge Authorizer Required: No Accompanied by: Self / Same As Patient Allergies tetracycline [Tetracycline] Allergy (Mild, Verified 07/25/23 13:43) SWELLING Medication List - Last Reconciled 07/25/23 by Genie Taylor MD [adult diapers briefs As directed] atorvastatin 20 mg PO BEDTIME 90 days blood sugar diagnostic (FreeStyle Test strips) Use 1 test strip once a day blood-glucose meter (FreeStyle [place] kit) As directed cetirizine (Zyrtec) 10 mg PO DAILY cholecalciferol (vitamin D3) 25 mcg PO DAILY 90 days citalopram 20 mg PO DAILY 90 days fluticasone propionate 50 mcg/actuation (Flonase Allergy Relief) 1 spray intranasal BID ibuprofen 600 mg PO Q8H PRN lancets (FreeStyle Lancets) Use 1 lancet once a day metformin 500 mg PO BID 90 days naproxen 375 mg PO BID PRN 30 days trazodone 50 mg PO BEDTIME PRN 90 days underpads (Certainty Underpads) As directed Tobacco use date assessed: 03/21/23 Dental Screening Dental Screen Date: 07/25/23 Did you have a dental visit in the last 12 months?: Yes Did you have a dental problem in the last 6 months where you did not have access to dental care?: No Was dental information given to patient?: Patient has dentist HPI HPI Comments History of Present Illness Details This is a 38-year-old female with diabetes mellitus type 2, mild recurrent major depression, hyperlipidemia and low vitamin-D that comes today follow-up on her conditions. A1c within goal. Depression stable with citalopram. LDL not on goal and I will increase atorvastatin. On vitamin-D supplements for low vitamin-D. No chest pain or shortness of breath. PFSH Medical History Depression Diabetes mellitus Hypovitaminosis D Impaired glucose tolerance Insomnia Migraines Mild recurrent major depression Obese Transaminitis Surgical History Encounter for IUD removal H/O colonoscopy H/O LEEP Family History Father Heart disease CVD (cardiovascular disease) Prostate cancer Mother Diabetes mellitus Maternal Grandmother No problems noted. Maternal Grandfather No problems noted. Paternal Grandmother No problems noted. Paternal Grandfather No problems noted. Son In good health Son In good health Sister In good health Brother No problems noted. Brother No problems noted. Brother No problems noted. Social History Household Members Other:: son Housing: Apartment Alcohol intake: never Patient Tobacco Use Status: Never used Tobacco e-Cigarette/Vaping Use: Never Used Second Hand Smoke Exposure: No service: No Current occupational status: employed and disabled Current occupational exposures/hazards: No Sexual orientation: Straight/Heterosexual Gender identity: Female Cognitive needs: No Hearing needs: No Vision needs: No Female Reproductive History Menstrual Age of Menarche: 12 Questionnaire Thrive Questionnaire Date Thrive assessed: 03/21/23 DILLON-7 AMB Questionnaire DILLON-7 Date DILLON - 7 assessed: 03/21/23 Source: Developed by Drs. Aniket Magallanes, Tammie Patiño, Vitaliy Yu and colleagues, with an educational saira from [employer]. Review of Systems Const All systems reviewed & are unremarkable except as noted in HPI and below Eyes Reports no additional complaints, Denies change in vision and Denies other visual disturbances Card Denies chest pain at rest, Denies chest pain with activity, Denies edema, Denies irregular heart rhythm, Denies claudication, Denies dyspnea, Denies dyspnea on exertion, Denies orthopnea, Denies paroxysmal nocturnal dyspnea and Denies slow heart rate Resp Denies cough, Denies dyspnea and Denies dyspnea on exertion GI Denies abdominal pain, Denies change in bowel habits, Denies excessive flatus, Denies nausea and Denies vomiting Denies urinary incontinence, Denies urinary hesitancy and Denies urinary urgency Musc Denies abnormal gait, Denies atrophy, Denies deformity and Denies limited range of motion Skin/Breast Denies bleeding lesions, Denies changing lesions and Denies rash Neuro Denies abnormal gait and Denies lack of coordination Physical exam (Primary Care) Vital Signs: Last Vital Signs BP 110/82 07/25/23 13:31 BMI result Body Mass Index 37.2 Tobacco/Smoking Status: Tobacco use Status Tobacco use date assessed 03/21/23 07/25/23 13:37 Patient Tobacco Use Status Never used Tobacco 07/25/23 13:37 Tobacco use type 11/16/22 15:17 e-Cigarette/Vaping Use Never Used 07/25/23 13:37 Thrive Assessment: Date of Thrive Assessment Date Thrive assessed 03/21/23 07/25/23 13:37 Eyes General: appearance normal, both eyes and all related structures Eyelids: Yes eyelids normal Conjunctivae: conjunctivae normal Neck Neck: Yes normal visual inspection and Yes supple Resp Effort & Inspection: normal respiratory effort Auscultation: clear to auscultation bilaterally Cardio Jugular venous distension: no JVD Rate: regular rate Rhythm: regular rhythm Heart sounds: S1 normal heart sound present and S2 normal heart sound present Extrem General: Yes full ROM Results AMB Hemoglobin A1c AMB Hemoglobin A1c 6.4 % Last Edit by LYNNE Oro on 07/25/23 13:42 Assessment and Plan Assessment & Plan (1) Mild recurrent major depression: Code(s): F33.0 - Major depressive disorder, recurrent, mild Plan: Continue citalopram. (2) Diabetes mellitus: Code(s): E11.9 - Type 2 diabetes mellitus without complications Qualifiers: Diabetes mellitus type: type 2 Diabetes mellitus detention insulin use: without long wall mining machine helper use Diabetes mellitus complication status: with hyperglycemia Qualified Code(s): E11.65 - Type 2 diabetes mellitus with hyperglycemia Plan: Continue metformin. A1c goal is equal or less than 7%. (3) Hyperlipidemia LDL goal <70: Code(s): E78.5 - Hyperlipidemia, unspecified Plan: Increase statins from 20 mg to 40 mg. LDL goal is less than 70. (4) Hypovitaminosis D: Code(s): E55.9 - Vitamin D deficiency, unspecified Plan: Continue vitamin-D supplement. Orders: Orders Lipid Panel 5 Months E78.5 - Hyperlipidemia, unspecified Microalbumin, Random (w Creat) 5 Months E11.9 - Type 2 diabetes mellitus without complications Vitamin D 25-OH Total 5 Months E55.9 - Vitamin D deficiency, unspecified Comprehensive [place]. Panel Fast 5 Months E78.5 - Hyperlipidemia, unspecified AMB Hemoglobin A1c Today E11.9 - Type 2 diabetes mellitus without complications Medications: New atorvastatin 40 mg PO BEDTIME 90 days 90 tabs 1RF E78.5 - Hyperlipidemia, unspecified Discontinued atorvastatin Discontinued Reason: Patient Completed Course 20 mg PO BEDTIME 90 days 90 tabs 1RF E78.5 - Hyperlipidemia, unspecified Coding Level of Care Code Est Pt Level 4 (06876) Diagnoses Mild recurrent major depression F33.0 Diabetes mellitus E11.65 Diabetes mellitus type: type 2 Diabetes mellitus detention insulin use: without long wall mining machine helper use Diabetes mellitus complication status: with hyperglycemia Hyperlipidemia LDL goal <70 E78.5 Hypovitaminosis D E55.9 Time Spent (min) 23
[2023-07-25 13:31] VITALS: BP 110/82; BMI 37.2
== END 2023-07-25 13:48 | disposition home or self-care (01) ==
PROVIDERS: PCP Internal Medicine; Visit Provider Internal Medicine
DX: F33.0 Major depressive disorder, recurrent, mild (principal); E11.65 Type 2 diabetes mellitus with hyperglycemia; E78.5 Hyperlipidemia, unspecified; E55.9 Vitamin D deficiency, unspecified; E11.9 Type 2 diabetes mellitus without complications
CPT/HCPCS: 83036; 99214

== ENCOUNTER 2023-08-09 13:43 | Outpatient (AMB) | payer OTHER, SELFPAY ==
--- NOTE | 2023-08-09 14:17 | MHC.OFFVIS ---
Intake Vital Signs 08/09/23 14:23 Height 4 ft 11 in Weight 185 lb BMI 37.4 BP 101/61 Blood Pressure Location Rt brachial Position Sitting Pulse 79 Intake Visit Reasons: 6 month follow up Intake Note: Patient presents to in office follow up for MIRANDA. CC: Patient denies having any GI symptoms today. Sales And Management Trainee Required: No Accompanied by: Self / Same As Patient Allergies tetracycline [Tetracycline] Allergy (Mild, Verified 08/09/23 14:22) SWELLING HPI 6 month follow up HPI Details Assessment & Plan (1) Transaminitis: Comment: BASELINE. Laboratory Tests THE PATIENT DOES NOT DRINK ANY ALCOHOL 04/08/21 Estimated GFR > 60 Fasting Glucose 252 H D Total Bilirubin 0.6 AST 95 H ALT 127 H Alkaline Phosphatase 149 H TSH 1.45 Laboratory Tests 08/04/21 11:05 Plt Count 255 CURRENT LABS 10/27/22 10:16 Estimated GFR > 60 Total Bilirubin 0.5 AST 27 D ALT 38 H Alkaline Phosphatase 115 US OF ABDOMEN 05/2022 IMPRESSION: -Hepatic steatosis. No focal parenchymal lesion. -Portal flow towards the liver. No ascites. -No cholelithiasis or ductal dilatation. Dictated By:Florentino Milton MDSigned By:<Electronically signed by Florentino Milton MD in OV>06/23/22 Code(s): R74.01 - Elevation of levels of liver transaminase levels Plan: I review all the labs in since everything appears to be stable we will pull the labs and the ultrasound again in 6 months. I again educate her that the best way to keep her liver healthy throughout her life time is to avoid gaining weight, controlling her blood glucose levels and avoiding toxins such as alcohol. She does not currently drink alcohol with any regularity. She knows she needs to work on losing weight and I emphasized that she uses slow steady approach to this. Return office visit in 6 months. LABS 07/15/23-1049 OTHR : ORDERED: CMP Fast, Lipid Panel, Vitamin D 2 5-OH Test Result Flag Refere nce Si te Sodium 143 135-145 mmol/L Potassium 3.9 3.3-5.1 m mol/L C L 10 7 96-108 mmol /L CO2 26 22-29 mmol/L Gap 14 12-20 BUN 8 L 9-16 mg/dL Creat 0.81 0 .5-1.4 mg/dL EGFR > 60 NOTE: F or -Reva n individuals, mul tiply the result by 1. 210. Chronic Kidney D isease: Estimated GFR < 60 mL/min/1 .73m2 Sever e Kidney Disease: Estimated GFR < 1 5 mL/min/1.73m2 FBS 1 15 H 60-99 mg/d L A fasting gluco se from 100-125 mg /dl is considered impaired (p re-diabetes). CA 9.7 8.4-10.2 mg/ dL Tota l Bili 0.4 0.0-1.0 mg/dL AST (G OT) 20 5-31 U/L ALT (GPT ) 17 0-31 U/L Protein, T otal 7.7 6. 5-8.0 g/dL Alb 4.2 3.5- 5.0 g/dL Triglyceride 53 mg/dL Desirable T riglyceride: less than 150 mg/ dL Borderli ne High Triglyceri de 150-199 mg/dL High Trigly ceride: 200-499 mg/dL Very High Trig lyceride: gr eater than or equa l to 5OO mg/dL Chol 1 41 mg/dL Desirable Josefa sterol: les s than 200 mg/dL Borderline H igh Cholesterol: 200-239 mg/dL High Cholestero l: gre ater than 239 mg/d L LDL Calculated 87 mg/dl Desirable L DL: less than 100 mg/dL Near Optimal/Above Opti mal LDL: 110-129 mg/dL Borde rline High LDL: 130-159 mg/dL High LDL: 160-189 mg/dL Very High LDL: greater than or equal to 190 mg/dL HDL 44 mg/dL Desirable HDL: gr eater than 40 mg/d L * Note: This HD L assay may give a rtificially low results in patients with liver disease. A lk Phos 12 5 H 39-117 U/L Vit D 25-OH Tot 43.9 >30 ng/mL Health Based Refer ence Values* TODAY'S VISIT We review her most recent liver panel and since her transaminases are normal we will bring her ultrasound examination up-to-date. If all of this looks good then she likely can just follow with her primary care provider return to our service if the transaminases become more than twice the normal limits. Return office visit in 6 months. [facility] Medical History Mild recurrent major depression Diabetes mellitus Migraines Obese Insomnia Depression Impaired glucose tolerance Hypovitaminosis D Transaminitis Surgical History H/O colonoscopy Encounter for IUD removal H/O LEEP Family History Father Heart disease CVD (cardiovascular disease) Prostate cancer Mother Diabetes mellitus Maternal Grandmother No problems noted. Maternal Grandfather No problems noted. Paternal Grandmother No problems noted. Paternal Grandfather No problems noted. Son In good health Son In good health Sister In good health Brother No problems noted. Brother No problems noted. Brother No problems noted. Social History Household Members Other:: son Housing: Apartment Alcohol intake: never Patient Tobacco Use Status: Never used Tobacco e-Cigarette/Vaping Use: Never Used Second Hand Smoke Exposure: No service: No Current occupational status: employed and disabled Current occupational exposures/hazards: No Sexual orientation: Straight/Heterosexual Gender identity: Female Cognitive needs: No Hearing needs: No Vision needs: No Female Reproductive History Menstrual Age of Menarche: 12 Review of Systems Const Denies fatigue, Denies fever(s), Denies night sweats, Denies poor appetite and Denies weight loss ENT Reports Normal hearing present, Denies dental pain, Denies dysphagia, Denies hearing loss, Denies mouth pain, Denies odynophagia, Denies throat swelling, Denies tongue swelling and Reports other (Dentition adequate) Card Reports no additional complaints Resp Reports no additional complaints GI Denies abdominal pain, Denies melena, Denies bloating, Denies hematochezia, Denies constipation, Denies GI cramping, Denies dysphagia, Denies excessive flatus, Denies early satiety, Denies heartburn, Denies diarrhea, Denies nausea, Denies odynophagia, Denies vomiting and Denies hematemesis Skin/Breast Denies pruritus, Denies lesions, Denies rash and Denies jaundice Neuro Reports Normal hearing present and Denies Abnormal speech present Endo Denies fatigue Aller/Immun Denies throat swelling and Denies tongue swelling Physical Exam Vital Signs: Last Vital Signs Pulse 79 08/09/23 14:23 BP 101/61 08/09/23 14:23 BMI result Body Mass Index 37.4 Const General: cooperative, no acute distress, well developed and well groomed Nutritional Appearance: well nourished and obese centrally obese Orientation/consciousness: oriented to person, oriented to place and oriented to time Limitations: No language barrier HEENT Head: Yes normocephalic and Yes atraumatic Eyes General: appearance normal, both eyes and all related structures Pupils: Equal, round and reactive pupils present Neck Neck: Yes normal visual inspection and Yes no lymphadenopathy Thyroid: Thyroid normal Resp Effort & Inspection: normal respiratory effort and able to speak in complete sentences Auscultation: clear to auscultation bilaterally Cardio Rate: regular rate Rhythm: regular rhythm Heart sounds: Normal, physiologic split S2 sound present Peripheral pulses: radial pulses present and posterior tibial pulses present GI Inspection: No distended, Yes Abdominal panniculus present and Yes obesity Palpation (GI): Soft to palpation, nontender, no guarding, not rigid and No hepatosplenomegaly present Percussion: Yes normal to percussion Auscultation: normal bowel sounds Rectal Exam - Female: deferred Skin General skin exam: no rashes or lesions noted, turgor normal, skin not dry, no jaundice, No spider nevi and no striae Rashes: no rashes Nails: normal Neuro General: oriented to person, oriented to place and oriented to time Cranial nerves: Yes Equal, round and reactive pupils present and Yes Normal hearing present Speech: No Abnormal speech present Extrem General: Yes normal to inspection, No clubbing, No cyanosis and No edema Psych Appearance: grossly normal and well kempt Mental Status: mental status grossly normal Speech and movement: Normal speech and movement present Affect: normal affect Attitude: cooperative Thought process: Normal thought process present and not confabulating Thought content: Normal thought content present Insight: Limited insight present (Psych) Judgement: Limited judgement present (Psych) Assessment & Plan Assessment & Plan (1) MIRANDA (nonalcoholic steatohepatitis): Comment: BASELINE. Laboratory Tests THE PATIENT DOES NOT DRINK ANY ALCOHOL 04/08/21 Estimated GFR > 60 Fasting Glucose 252 H D Total Bilirubin 0.6 AST 95 H ALT 127 H Alkaline Phosphatase 149 H TSH 1.45 Laboratory Tests 08/04/21 11:05 Plt Count 255 CURRENT LABS 06/2023 0.4 0.0-1.0 mg/dL AST (GOT) 20 5-31 U/L ALT (GPT) 17 US OF ABDOMEN 05/2022 IMPRESSION: -Hepatic steatosis. No focal parenchymal lesion. -Portal flow towards the liver. No ascites. -No cholelithiasis or ductal dilatation. Dictated By:Florentino Milton MDSigned By:<Electronically signed by Florentino Milton MD in [place]>06/23/22 Code(s): K75.81 - Nonalcoholic steatohepatitis (MIRANDA) Plan: We review her most recent liver panel and since her transaminases are normal we will bring her ultrasound examination up-to-date. If all of this looks good then she likely can just follow with her primary care provider return to our service if the transaminases become more than twice the normal limits. Return office visit in 6 months. (2) Transaminitis: Comment: BASELINE. Laboratory Tests THE PATIENT DOES NOT DRINK ANY ALCOHOL 04/08/21 Estimated GFR > 60 Fasting Glucose 252 H D Total Bilirubin 0.6 AST 95 H ALT 127 H Alkaline Phosphatase 149 H TSH 1.45 Laboratory Tests 08/04/21 11:05 Plt Count 255 CURRENT LABS 10/27/22 10:16 Estimated GFR > 60 Total Bilirubin 0.5 AST 27 D ALT 38 H Alkaline Phosphatase 115 US OF ABDOMEN 05/2022 IMPRESSION: -Hepatic steatosis. No focal parenchymal lesion. -Portal flow towards the liver. No ascites. -No cholelithiasis or ductal dilatation. Dictated By:Florentino Milton MDSigned By:<Electronically signed by Florentino Milton MD in [place]>06/23/22 Code(s): R74.01 - Elevation of levels of liver transaminase levels Orders: Orders US abdomen complete 08/09/23 K75.81 - Nonalcoholic steatohepatitis (MIRANDA) Coding Level of Care Code Est Pt Level 3 (83899) Diagnoses MIRANDA (nonalcoholic steatohepatitis) K75.81 Transaminitis R74.01
[2023-08-09 14:23] VITALS: BP 101/61; PULSE 79; BMI 37.4
== END 2023-08-09 14:54 | disposition home or self-care (01) ==
PROVIDERS: Visit Provider Nurse Practitioner
DX: K75.81 Nonalcoholic steatohepatitis (NASH) (principal); R74.01 Elevation of levels of liver transaminase levels
CPT/HCPCS: 99213

== ENCOUNTER → 2023-08-09 13:43 | Outpatient (BNVA) | payer OTHER, SELFPAY | PROVIDERS: Visit Provider Nurse Practitioner | DX: K75.81 Nonalcoholic steatohepatitis (NASH) (principal); R74.01 Elevation of levels of liver transaminase levels | CPT/HCPCS: 99212 ==

== ENCOUNTER 2023-08-24 08:44 | Outpatient (REF) | payer OTHER, SELFPAY ==
--- NOTE | ~2023-08-24 | US_ITS ---
EXAMINATION: US ABDOMEN COMPLETE CLINICAL INFORMATION: Nonalcoholic steatohepatitis (MIRANDA). COMPARISON: Ultrasound abdomen limited 06/21/2022. TECHNIQUE: Real-time imaging of the abdominal viscera. FINDINGS: PANCREAS: Normal. ABDOMINAL AORTA: The proximal, mid, and distal segments are normal in caliber. INFERIOR VENA CAVA: Visualized portions are normal. LIVER: The liver is normal in size. The liver contour is normal. Increased hepatic echogenicity which can be seen in the setting of hepatic steatosis or underlying liver disease, similar to prior. Tiny calcified granuloma in the liver. No suspicious liver lesion. There is no intrahepatic biliary duct dilatation seen. GALLBLADDER: Normal. The gallbladder is physiologically distended without evidence of stones, sludge, polyps, wall thickening or pericholecystic fluid. COMMON BILE DUCT: Normal in caliber measuring 0.4 cm in diameter. RIGHT KIDNEY: Subcentimeter benign-appearing renal cyst, no follow-up imaging recommended. No hydronephrosis or renal calculi. The kidney measures 10.5 cm in maximum dimension. LEFT KIDNEY: Normal. No hydronephrosis. No renal calculi or focal parenchymal lesions. The kidney measures 9.4 cm in maximum dimension. SPLEEN: Normal. The spleen measures 10.0 cm in maximum dimension. FREE FLUID: None. US/US abdomen complete IMPRESSION: Increased hepatic echogenicity which can be seen in the setting of hepatic steatosis or underlying liver disease similar to prior.
== END 2023-08-24 08:45 | disposition home or self-care (01) ==
LOC: HO.US 08:44
PROVIDERS: PCP Internal Medicine; Visit Provider Nurse Practitioner
DX: K75.81 Nonalcoholic steatohepatitis (NASH) (principal)
CPT/HCPCS: 76700

== ENCOUNTER 2023-12-23 11:03 | Outpatient (REF) | payer OTHER, SELFPAY ==
[2023-12-23 11:46] LABS: MANUAL DIFF FLAG NO
[2023-12-23 11:58] LABS: Basophils Percent Auto 0.5 % (0-2); Eosinophils Absolute Auto 0.1 X10*3/uL (0.0-0.4); Eosinophils Percent Auto 1.4 % (0-4); Hematocrit 39.3 % (37.0-47.0); Hemoglobin 12.8 g/dl (12.0-16.0); Imm Gran Abs Auto 0.02 X10*3/uL (0.00-0.03); Imm Gran Pct Auto 0.2 % (0.0-0.4); Lymphocytes Percent Auto 22.7 % (20-40); Mean Corpuscular HGB Conc 32.6 g/dl (31.0-35.0); Mean Corpuscular Volume 76.9 fL (80.0-98.0); Mean Platelet Volume 10.9 fL (9.4-12.3); Monocytes Absolute Auto 0.5 X10*3/uL (0.1-1.2); Monocytes Percent Auto 5.3 % (2-11); Neutrophils Absolute Auto 6.1 x10*3/uL (2.0-8.3); Neutrophils Percent Auto 69.9 % (45-73); Platelet Count 258 X10*3/uL (160-400); Red Blood Count 5.11 X10*6/uL (4.20-5.50); Red Cell Distribution Width 14.4 % (11.0-16.0); White Blood Count 8.7 X10*3/uL (4.8-10.8)
[2023-12-23 12:37] LABS: Alanine Aminotransferase 15 U/L (0-31); Alkaline Phosphatase 129 U/L (39-117); Anion Gap 13 (12-20); Aspartate Amino Transferase 16 U/L (5-31); Bilirubin Total 0.5 mg/dL (0.0-1.0); Blood Urea Nitrogen 8 mg/dL (9-16); Calcium 9.2 mg/dL (8.4-10.2); Carbon Dioxide 26 mmol/L (22-29); Chloride 106 mmol/L (96-108); Estimated Glomerular Filt Rate > 60; Glucose Random 140 mg/dL (60-115); Potassium 3.7 mmol/L (3.3-5.1); Sodium 141 mmol/L (135-145); Total Protein 7.3 g/dL (6.5-8.0)
== END 2023-12-23 11:04 | disposition home or self-care (01) ==
LOC: HO.LAB 11:03
PROVIDERS: PCP Internal Medicine; Visit Provider Nurse Practitioner
DX: K75.81 Nonalcoholic steatohepatitis (NASH) (principal)
CPT/HCPCS: 36415; 80053; 85025; 99212

== ENCOUNTER 2023-12-23 11:03 | Outpatient (AMB) | payer OTHER, SELFPAY ==
--- NOTE | 2023-12-23 11:08 | MHC.OFFVIS ---
Intake Vital Signs 12/23/23 11:13 Height 4 ft 11 in Weight 185 lb 3.013 oz BMI 37.4 BP 117/74 Blood Pressure Location Lt brachial Position Sitting Pulse 91 Intake Visit Reasons: follow up - r/s from 12/02 Intake Note: Patient presents to in office today in follow up for MIRANDA and US. CC: Patient reports doing well and denies having any GI symptoms today. Auditing Manager Required: No Accompanied by: Self / Same As Patient Allergies tetracycline [Tetracycline] Allergy (Mild, Verified 12/23/23 11:15) SWELLING HPI follow up - r/s from 12/02 HPI Details Assessment & Plan (1) MIRANDA (nonalcoholic steatohepatitis): Comment: BASELINE. Laboratory Tests THE PATIENT DOES NOT DRINK ANY ALCOHOL 04/08/21 Estimated GFR > 60 Fasting Glucose 252 H D Total Bilirubin 0.6 AST 95 H ALT 127 H Alkaline Phosphatase 149 H TSH 1.45 Laboratory Tests 08/04/21 11:05 Plt Count 255 CURRENT LABS 06/2023 0.4 0.0-1.0 mg/dL AST (GOT) 20 5-31 U/L ALT (GPT) 17 US OF ABDOMEN 05/2022 IMPRESSION: -Hepatic steatosis. No focal parenchymal lesion. -Portal flow towards the liver. No ascites. -No cholelithiasis or ductal dilatation. Dictated By:Florentino Milton MDSigned By:<Electronically signed by Florentino Milton MD in OV>06/23/22 Code(s): K75.81 - Nonalcoholic steatohepatitis (MIRANDA) Plan: We review her most recent liver panel and since her transaminases are normal we will bring her ultrasound examination up-to-date. If all of this looks good then she likely can just follow with her primary care provider return to our service if the transaminases become more than twice the normal limits. Return office visit in 6 months. (2) Transaminitis: Comment: BASELINE. Laboratory Tests THE PATIENT DOES NOT DRINK ANY ALCOHOL 04/08/21 Estimated GFR > 60 Fasting Glucose 252 H D Total Bilirubin 0.6 AST 95 H ALT 127 H Alkaline Phosphatase 149 H TSH 1.45 Laboratory Tests 08/04/21 11:05 Plt Count 255 CURRENT LABS 10/27/22 10:16 Estimated GFR > 60 Total Bilirubin 0.5 AST 27 D ALT 38 H Alkaline Phosphatase 115 US OF ABDOMEN 05/2022 IMPRESSION: -Hepatic steatosis. No focal parenchymal lesion. -Portal flow towards the liver. No ascites. -No cholelithiasis or ductal dilatation. Dictated By:Florentino Milton MDSigned By:<Electronically signed by Florentino Milton MD in OV>06/23/22 Code(s): R74.01 - Elevation of levels of liver transaminase levels Orders: Orders US abdomen complet e 08/09/23 K75.81 - Nonalcoho lic steatohepatiti s (MIRANDA) ULTRASOUND OF THE ABDOMEN 08/25/23 FINDINGS: PANCREAS: Normal. ABDOMINAL AORTA: The proximal, mid, and distal segments are normal in caliber. INFERIOR VENA CAVA: Visualized portions are normal. LIVER: The liver is normal in size. The liver contour is normal. Increased hepatic echogenicity which can be seen in the setting of hepatic steatosis or underlying liver disease, similar to prior. Tiny calcified granuloma in the liver. No suspicious liver lesion. There is no intrahepatic biliary duct dilatation seen. GALLBLADDER: Normal. The gallbladder is physiologically distended without evidence of stones, sludge, polyps, wall thickening or pericholecystic fluid. COMMON BILE DUCT: Normal in caliber measuring 0.4 cm in diameter. RIGHT KIDNEY: Subcentimeter benign-appearing renal cyst, no follow-up imaging recommended. No hydronephrosis or renal calculi. The kidney measures 10.5 cm in maximum dimension. LEFT KIDNEY: Normal. No hydronephrosis. No renal calculi or focal parenchymal lesions. The kidney measures 9.4 cm in maximum dimension. SPLEEN: Normal. The spleen measures 10.0 cm in maximum dimension. FREE FLUID: None. US/US abdomen complete IMPRESSION: Increased hepatic echogenicity which can be seen in the setting of hepatic steatosis or underlying liver disease similar to prior. TODAY'S VISIT Karyn continues to try to control her weight. I let her know that since her transaminases have been normal and her ultrasound also completely normal that if the labs that she does for me today continue to look good I will have her follow with her primary care provider instead of our services. I again emphasized the importance of lifelong weight control on reducing her chance of having any potential liver disease. Even if her weight hold where she is it will reduce her chances of having problems as opposed to gaining a lot of weight as she ages. I will call her with the results. If they are normal then she can follow with her primary who can monitor her transaminases every 6 months to a year and only return her to our services if they become more than twice the upper normal limit. [facility] Medical History Transaminitis Mild recurrent major depression Diabetes mellitus Migraines Obese Insomnia Depression Impaired glucose tolerance Hypovitaminosis D Surgical History H/O colonoscopy Encounter for IUD removal H/O LEEP Family History Father Heart disease CVD (cardiovascular disease) Prostate cancer Mother Diabetes mellitus Maternal Grandmother No problems noted. Maternal Grandfather No problems noted. Paternal Grandmother No problems noted. Paternal Grandfather No problems noted. Son In good health Son In good health Sister In good health Brother No problems noted. Brother No problems noted. Brother No problems noted. Social History Household Members Other:: son Housing: Apartment Alcohol intake: never Patient Tobacco Use Status: Never used Tobacco e-Cigarette/Vaping Use: Never Used Second Hand Smoke Exposure: No service: No Current occupational status: employed and disabled Current occupational exposures/hazards: No Sexual orientation: Straight/Heterosexual Gender identity: Female Cognitive needs: No Hearing needs: No Vision needs: No Female Reproductive History Menstrual Age of Menarche: 12 Review of Systems Const Denies fatigue, Denies fever(s), Denies night sweats, Denies poor appetite and Denies weight loss ENT Reports Normal hearing present, Denies dental pain, Denies dysphagia, Denies hearing loss, Denies mouth pain, Denies odynophagia, Denies throat swelling, Denies tongue swelling and Reports other (Dentition adequate) Card Reports no additional complaints Resp Reports no additional complaints GI Details: Denies abdominal pain, Denies melena, Denies bloating, Denies hematochezia, Denies constipation, Denies GI cramping, Denies dysphagia, Denies excessive flatus, Denies early satiety, Denies heartburn, Denies diarrhea, Denies nausea, Denies odynophagia, Denies vomiting and Denies hematemesis Skin/Breast Denies pruritus, Denies lesions, Denies rash and Denies jaundice Neuro Reports Normal hearing present and Denies Abnormal speech present Endo Denies fatigue Aller/Immun Denies throat swelling and Denies tongue swelling Physical Exam Vital Signs: Last Vital Signs Pulse 91 12/23/23 11:13 BP 117/74 12/23/23 11:13 BMI result Body Mass Index 37.4 Const General: cooperative, no acute distress, well developed and well groomed Nutritional Appearance: well nourished and obese Orientation/consciousness: oriented to person, oriented to place and oriented to time Limitations: No language barrier HEENT Head: Yes normocephalic and Yes atraumatic Eyes General: appearance normal, both eyes and all related structures Pupils: Equal, round and reactive pupils present Neck Neck: Yes normal visual inspection and Yes no lymphadenopathy Thyroid: Thyroid normal Resp Effort & Inspection: normal respiratory effort and able to speak in complete sentences Auscultation: clear to auscultation bilaterally Cardio Rate: regular rate Rhythm: regular rhythm Heart sounds: Normal, physiologic split S2 sound present Peripheral pulses: radial pulses present and posterior tibial pulses present GI Inspection: No distended, Yes Abdominal panniculus present and Yes obesity Palpation (GI): Soft to palpation, nontender, no guarding, not rigid and No hepatosplenomegaly present Percussion: Yes normal to percussion Auscultation: normal bowel sounds Rectal Exam - Female: deferred Skin General skin exam: no rashes or lesions noted, turgor normal, skin not dry, no jaundice, No spider nevi and no striae Rashes: no rashes Nails: normal Neuro General: oriented to person, oriented to place and oriented to time Cranial nerves: Yes Equal, round and reactive pupils present and Yes Normal hearing present Speech: No Abnormal speech present Extrem General: Yes normal to inspection, No clubbing, No cyanosis and No edema Psych Appearance: grossly normal and well kempt Mental Status: mental status grossly normal Speech and movement: Normal speech and movement present Affect: normal affect Attitude: cooperative Thought process: Normal thought process present and not confabulating Thought content: Normal thought content present Insight: Limited insight present (Psych) Judgement: Limited judgement present (Psych) Assessment & Plan Assessment & Plan (1) MIRANDA (nonalcoholic steatohepatitis): Comment: GIVEN HER NORMAL TRANSAMINASES AND ULTRASOUNDS SERIALLY SHE DOES NOT NEED TO BE FOLLOWED BY GASTROENTEROLOGY AND HER PRIMARY SHOULD MONITOR HER TRANSAMINASES AT 6 MONTH TO 1 YEAR INTERVALS AND RETURN HER TO OUR SERVICE IF THEY RISE TO MORE THAN TWICE THE UPPER LIMIT OF NORMAL. BASELINE. Laboratory Tests THE PATIENT DOES NOT DRINK ANY ALCOHOL 04/08/21 Estimated GFR > 60 Fasting Glucose 252 H D Total Bilirubin 0.6 AST 95 H ALT 127 H Alkaline Phosphatase 149 H TSH 1.45 Laboratory Tests 08/04/21 11:05 Plt Count 255 CURRENT LABS 06/2023 0.4 0.0-1.0 mg/dL AST (GOT) 20 5-31 U/L ALT (GPT) 17 ULTRASOUND OF THE ABDOMEN 08/25/23 FINDINGS: PANCREAS: Normal. ABDOMINAL AORTA: The proximal, mid, and distal segments are normal in caliber. INFERIOR VENA CAVA: Visualized portions are normal. LIVER: The liver is normal in size. The liver contour is normal. Increased hepatic echogenicity which can be seen in the setting of hepatic steatosis or underlying liver disease, similar to prior. Tiny calcified granuloma in the liver. No suspicious liver lesion. There is no intrahepatic biliary duct dilatation seen. GALLBLADDER: Normal. The gallbladder is physiologically distended without evidence of stones, sludge, polyps, wall thickening or pericholecystic fluid. COMMON BILE DUCT: Normal in caliber measuring 0.4 cm in diameter. RIGHT KIDNEY: Subcentimeter benign-appearing renal cyst, no follow-up imaging recommended. No hydronephrosis or renal calculi. The kidney measures 10.5 cm in maximum dimension. LEFT KIDNEY: Normal. No hydronephrosis. No renal calculi or focal parenchymal lesions. The kidney measures 9.4 cm in maximum dimension. SPLEEN: Normal. The spleen measures 10.0 cm in maximum dimension. FREE FLUID: None. US/US abdomen complete IMPRESSION: Increased hepatic echogenicity which can be seen in the setting of hepatic steatosis or underlying liver disease similar to prior. Code(s): K75.81 - Nonalcoholic steatohepatitis (MIRANDA) Plan Karyn continues to try to control her weight. I let her know that since her transaminases have been normal and her ultrasound also completely normal that if the labs that she does for me today continue to look good I will have her follow with her primary care provider instead of our services. I again emphasized the importance of lifelong weight control on reducing her chance of having any potential liver disease. Even if her weight hold where she is it will reduce her chances of having problems as opposed to gaining a lot of weight as she ages. I will call her with the results. If they are normal then she can follow with her primary who can monitor her transaminases every 6 months to a year and only return her to our services if they become more than twice the upper normal limit. Orders: Orders Complete Blood Count Auto Diff Today K75.81 - Nonalcoholic steatohepatitis (MIRANDA) Comprehensive Met. Panel Today K75.81 - Nonalcoholic steatohepatitis (MIRANDA) Coding Level of Care Code Est Pt Level 3 (50786) Diagnoses MIRANDA (nonalcoholic steatohepatitis) K75.81
[2023-12-23 11:13] VITALS: BP 117/74; PULSE 91; BMI 37.4
== END 2023-12-23 11:33 | disposition home or self-care (01) ==
PROVIDERS: PCP Internal Medicine; Visit Provider Nurse Practitioner
DX: K75.81 Nonalcoholic steatohepatitis (NASH) (principal)
CPT/HCPCS: 99213

== ENCOUNTER 2024-01-05 13:33 | Outpatient (AMB) | payer OTHER, SELFPAY ==
[2024-01-05 13:43] VITALS: BP 112/70; BMI 37.4
--- NOTE | 2024-01-05 13:43 | MHC.PC.OV ---
Vital Signs 01/05/24 13:43 Height 4 ft 11 in Weight 185 lb BMI 37.4 BP 112/70 Blood Pressure Location Lt brachial Position Sitting Intake Visit Reasons: Annual Exam Intake Note: Patient here for a physical exam Journalism Internship Required: No Accompanied by: Self / Same As Patient Allergies tetracycline [Tetracycline] Allergy (Mild, Verified 01/05/24 13:57) SWELLING Medication List - Last Reconciled 01/05/24 by Genie Taylor MD [adult diapers briefs As directed] atorvastatin 40 mg PO BEDTIME 90 days blood sugar diagnostic (FreeStyle Test strips) Use 1 test strip once a day blood-glucose meter (FreeStyle Bryan kit) As directed citalopram 20 mg PO DAILY 90 days fluticasone propionate 50 mcg/actuation (Flonase Allergy Relief) 1 spray intranasal BID lancets (FreeStyle Lancets) Use 1 lancet once a day metformin 500 mg PO BID 90 days trazodone 50 mg PO BEDTIME PRN 90 days underpads (Certainty Underpads) As directed Tobacco use date assessed: 01/05/24 Dental Screening Dental Screen Date: 01/05/24 Did you have a dental visit in the last 12 months?: No Did you have a dental problem in the last 6 months where you did not have access to dental care?: No Was dental information given to patient?: Patient has dentist HPI HPI Comments History of Present Illness Details This is a 38-year-old female with diabetes mellitus type 2 and mild major depression that comes for her physical exam. A1c mildly elevated but she admits not being completely compliant with metformin. On citalopram for depression. Last diabetic eye exam was few months ago. Pap smear done 2022 and was normal. No chest pain or shortness of breath. FORMERLY [facility], [facility] Medical History Transaminitis Mild recurrent major depression Diabetes mellitus Migraines Obese Insomnia Depression Impaired glucose tolerance Hypovitaminosis D Surgical History H/O colonoscopy Encounter for IUD removal H/O LEEP Family History Father Heart disease CVD (cardiovascular disease) Prostate cancer Mother Diabetes mellitus Maternal Grandmother No problems noted. Maternal Grandfather No problems noted. Paternal Grandmother No problems noted. Paternal Grandfather No problems noted. Son In good health Son In good health Sister In good health Brother No problems noted. Brother No problems noted. Brother No problems noted. Social History Household Members Other:: son Housing: Apartment Alcohol intake: never Patient Tobacco Use Status: Never used Tobacco e-Cigarette/Vaping Use: Never Used Second Hand Smoke Exposure: No service: No Current occupational status: unemployed and disabled Sexual orientation: Straight/Heterosexual Gender identity: Female Cognitive needs: No Hearing needs: No Vision needs: No Female Reproductive History Menstrual Age of Menarche: 12 Questionnaire PHQ-9 Over the last 2 weeks, how often have you been bothered by any of the following problems? 1. Little interest or pleasure in doing things: not at all 2. Feeling down, depressed, or hopeless: not at all 3. Trouble falling or staying asleep, or sleeping too much: not at all 4. Feeling tired or having little energy: not at all 5. Poor appetite or overeating: not at all 6. Feeling bad about yourself - or that you are a failure or have let yourself or your family down: not at all 7. Trouble concentrating on things, such as reading the newspaper or watching television: not at all 8. Moving or speaking so slowly that other people could have noticed. Or the opposite - being so fidgety or restless that you have been moving around a lot more than usual: not at all 9. Thoughts that you would be better off or of hurting yourself in some way: not at all Total score: 0 Depression Screening Interpretation: Negative Depression Screening Done: Yes 89584 - PHQ-9 Billing: Yes Source: Developed by Drs. Aniket Magallanes, Tammie Patiño, Vitaliy Yu and colleagues, with an educational saira from [employer]. Thrive Questionnaire Date Thrive assessed: 01/05/24 I am a: Patient What is your living situation today?: I have a steady place to live Within the past 12 months, did the food you bought not last and you didn't have the money to get more?: Never true Within the past 12 months, did you worry whether your food would run out before you got money to buy more?: Never true Do you have trouble paying for medicines?: No Do you have trouble getting transportation to medical appointments?: No Do you have trouble paying your heating and electricity bill?: No Do you have trouble taking care of your child, family member or friend?: No Do you have trouble with day-to-day activities such as bathing, preparing meals, shopping, managing finances, etc.?: No Are you currently unemployed and looking for a job?: No Are you interested in more education?: No Please select the resources that you would like help with: None Currently or been in a relationship where the following occur: no concerns reported THRIVE Score: 0 AUDIT C Alcohol Use Questionnaire (AUDIT-C) 1. How often do you have a drink containing alcohol?: Never Total Score: 0 DILLON-7 AMB Questionnaire DILLON-7 Date DILLON - 7 assessed: 01/05/24 Feeling nervous, anxious, or on edge: 1 = Several days Not being able to stop or control worryin = Not at all Worrying too much about different things: 0 = Not at all Trouble relaxin = Not at all Being so restless that it is hard to sit still: 0 = Not at all Becoming easily annoyed or irritable: 0 = Not at all Feeling afraid as if something awful might happen: 0 = Not at all Total DILLON-7 score (0-4 normal; 5-9 mild; 10-14 moderate; 15-21 severe): 1 Source: Developed by Drs. Aniket Magallanes, Tammie Patiño, Vitaliy Yu and colleagues, with an educational saira from [employer]. DILLON-7 Assessment Billing DILLON-7 Assessment Tool: DILLON-7 Assessment 69940 Review of Systems Const All systems reviewed & are unremarkable except as noted in HPI and below Eyes Reports no additional complaints, Denies change in vision and Denies other visual disturbances Card Denies chest pain at rest, Denies chest pain with activity, Denies edema, Denies irregular heart rhythm, Denies claudication, Denies dyspnea, Denies dyspnea on exertion, Denies orthopnea, Denies paroxysmal nocturnal dyspnea and Denies slow heart rate Resp Denies cough, Denies dyspnea and Denies dyspnea on exertion GI Denies abdominal pain, Denies change in bowel habits, Denies excessive flatus, Denies nausea and Denies vomiting Denies urinary incontinence, Denies urinary hesitancy and Denies urinary urgency Musc Denies abnormal gait, Denies atrophy, Denies deformity and Denies limited range of motion Skin/Breast Denies bleeding lesions, Denies changing lesions and Denies rash Neuro Denies abnormal gait, Denies behavioral changes, Denies confusion and Denies lack of coordination Psych Denies behavioral changes and Denies confusion Physical exam (Primary Care) Vital Signs: Last Vital Signs BP 112/70 01/05/24 13:43 BMI result Body Mass Index 37.4 Tobacco/Smoking Status: Tobacco use Status Tobacco use date assessed 01/05/24 01/05/24 13:48 Patient Tobacco Use Status Never used Tobacco 01/05/24 13:48 Tobacco use type 11/16/22 15:17 e-Cigarette/Vaping Use Never Used 01/05/24 13:48 PHQ-9: PHQ-9 Score PHQ-9: Total score 0 01/05/24 14:04 Depression Screening Interpretation: Negative Thrive Assessment: Date of Thrive Assessment Date Thrive assessed 01/05/24 01/05/24 13:48 Currently or been in a relationship where the following occur: no concerns reported Const General: No confusion Orientation/consciousness: patient oriented x3 and No confusion HENMT Head: Yes normal to inspection, Yes normocephalic and Yes atraumatic Ears: external ears normal Eyes General: appearance normal, both eyes and all related structures Eyelids: Yes eyelids normal Conjunctivae: conjunctivae normal Neck Neck: Yes normal visual inspection and Yes supple Resp Effort & Inspection: normal respiratory effort Auscultation: clear to auscultation bilaterally Cardio Jugular venous distension: no JVD Rate: regular rate Rhythm: regular rhythm Heart sounds: S1 normal heart sound present and S2 normal heart sound present GI Inspection: Yes normal to inspection Palpation (GI): Soft to palpation and nontender Auscultation: normal bowel sounds Skin General skin exam: no rashes or lesions noted Neuro General: patient oriented x3, no focal motor deficits and No confusion Extrem General: Yes full ROM Psych Appearance: grossly normal Results AMB Hemoglobin A1c AMB Hemoglobin A1c 7.2 % Last Edit by LYNNE Oro on 01/05/24 14:08 Results Reviewed Results Reviewed: Laboratory Last Values Hgb A1c (Clinic) 7.2 % (4.0-6.0) H 01/05/24 13:49 Assessment and Plan Assessment & Plan (1) Physical exam: Code(s): Z00.00 - Encounter for general adult medical examination without abnormal findings Plan: Repeat in a year. (2) Mild recurrent major depression: Code(s): F33.0 - Major depressive disorder, recurrent, mild Plan: Continue citalopram. (3) Diabetes mellitus: Code(s): E11.9 - Type 2 diabetes mellitus without complications Qualifiers: Diabetes mellitus type: type 2 Diabetes mellitus terminal carman insulin use: without half-way use Diabetes mellitus complication status: with hyperglycemia Qualified Code(s): E11.65 - Type 2 diabetes mellitus with hyperglycemia Plan: Continue metformin. A1c goal is equal or less than 7%. Orders: Orders AMB Hemoglobin A1c Today E11.9 - Type 2 diabetes mellitus without complications Lipid Panel 4 Months E78.5 - Hyperlipidemia, unspecified Microalbumin, Random (w Creat) 4 Months E11.9 - Type 2 diabetes mellitus without complications Vitamin D 25-OH Total 4 Months E55.9 - Vitamin D deficiency, unspecified Comprehensive [place]. Panel Fast 4 Months Z00.00 - Encounter for general adult medical examination without abnormal findings Coding Level of Care Code Est Pt Prev Care 18-39y(77545) Diagnoses Physical exam Z00.00 Mild recurrent major depression F33.0 Type 2 diabetes mellitus with hyperglycemia, without long-term current use of insulin E11.65 Diabetes mellitus type: type 2 Diabetes mellitus terminal carman insulin use: without terminal carman use Diabetes mellitus complication status: with hyperglycemia Additional Codes DILLON-7 Assessment Billing - DILLON-7 Assessment Tool: DILLON-7 Assessment [id number] ([id number]) Time Spent (min) 32
== END 2024-01-05 14:07 | disposition home or self-care (01) ==
PROVIDERS: PCP Internal Medicine; Visit Provider Internal Medicine
DX: Z00.00 Encounter for general adult medical examination without abnormal findings (principal); F33.0 Major depressive disorder, recurrent, mild; E11.65 Type 2 diabetes mellitus with hyperglycemia
CPT/HCPCS: 83036; 99395

== ENCOUNTER 2024-01-23 12:23 | Outpatient (AMB) | payer OTHER, SELFPAY ==
[2024-01-23 12:34] VITALS: BMI 38.2
--- NOTE | 2024-01-23 12:34 | A.OFFVIS_ITS ---
Intake VS Expanded 01/23/24 12:34 Height 4 ft 11 in Weight 189 lb 6.033 oz BMI 38.2 Intake Visit Reasons: T2DM/obesityfattyliver/CONFIRMED Allergies tetracycline [Tetracycline] Allergy (Mild, Verified 01/05/24 13:57) SWELLING HPI Nutrition Presentation Details Pt presents for MNT for T2DM Pt admits to dietary indiscretion, not monitoring blood glucose at home. 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- does not have list of allergens with her Most Recent Diabetes Results: Microalb/Creat Ratio TNP 07/15/23 Cholesterol 141 mg/dL 07/15/23 HDL Cholesterol 44 mg/dL 07/15/23 Triglycerides 53 mg/dL 07/15/23 Creatinine 0.79 mg/dL (0.5-1.4) 12/23/23 Blood Urea Nitrogen 8 mg/dL (9-16) L 12/23/23 Sodium 141 mmol/L (135-145) 12/23/23 Potassium 3.7 mmol/L (3.3-5.1) 12/23/23 Chloride 106 mmol/L (96-108) 12/23/23 Carbon Dioxide 26 mmol/L (22-29) 12/23/23 Calcium 9.2 mg/dL (8.4-10.2) 12/23/23 AST 16 U/L (5-31) 12/23/23 ALT 15 U/L (0-31) 12/23/23 Total Protein 7.3 g/dL (6.5-8.0) 12/23/23 Albumin 4.0 g/dL (3.5-5.0) 12/23/23 FORMERLY [facility] Medical History Transaminitis Mild recurrent major depression Diabetes mellitus Migraines Obese Insomnia Depression Impaired glucose tolerance Hypovitaminosis D Surgical History H/O colonoscopy Encounter for IUD removal H/O LEEP Family History Father Heart disease CVD (cardiovascular disease) Prostate cancer Mother Diabetes mellitus Maternal Grandmother No problems noted. Maternal Grandfather No problems noted. Paternal Grandmother No problems noted. Paternal Grandfather No problems noted. Son In good health Son In good health Sister In good health Brother No problems noted. Brother No problems noted. Brother No problems noted. Social History Household Members Other:: son Housing: Apartment Alcohol intake: never Patient Tobacco Use Status: Never used Tobacco e-Cigarette/Vaping Use: Never Used Second Hand Smoke Exposure: No service: No Current occupational status: unemployed and disabled Sexual orientation: Straight/Heterosexual Gender identity: Female Cognitive needs: No Hearing needs: No Vision needs: No Female Reproductive History Menstrual Age of Menarche: 12 Assessment & Plan Assessment & Plan (1) Diabetes mellitus: Comment: A1c increased from 6.4% (06/2023) to 7.2% 12/2023 Code(s): E11.9 - Type 2 diabetes mellitus without complications Qualifiers: Diabetes mellitus type: type 2 Diabetes mellitus intermediate frame tender insulin use: without senior living use Diabetes mellitus complication status: with hyperglycemia Qualified Code(s): E11.65 - Type 2 diabetes mellitus with hyperglycemia (2) MIRANDA (nonalcoholic steatohepatitis): Code(s): K75.81 - Nonalcoholic steatohepatitis (MIRANDA) Plan Will discuss resuming dietary concepts regarding lower carb/lower fat food options to promote weight loss improvement in A1c Used wt :86kg (12/2023) Est kcal as per MSJ: 1751 (40% carb, 30% fat/prot) Est fluid needs: 2150 ml/d (25 ml/kg bw) Rec fiber: increase to 8-10 g per day and gradually increase to 25 g/d as tolerated Rec Na: < 1500 mg /d Educate patient on: (R= Reviewed, V = verbalizes understanding N/R= Needs review N/A= not applicable) * Food sources of carbohydrates and serving adequate serving sizes : R * Difference between complex carbohydrates and simple carbohydrates, role of fiber: R V * Differences between fats (MUFA/PUFA/saturated fats, trans fats) and food sources of various fats: R * Food sources of sodium and salt and healthy modifications for heart health and kidney health: R N/R * Vitamins and minerals: N/R * How to interpret food labels: R (fats) * Healthy Plate method concept: R V * Physical activity: benefits and precaution: R V Patient Instructions: Resume : have a fruit in place of pastries twice a day Have water with meals and snacks,, no juices/juice drinks, regular sodas Reduce portion of starches to 1 1/2 cup serving at dinner Have a sandwich at lunch (whole wheat bread, tuna or egg salad or ham/cheese with lettuce tomato) or meal replacement resume monitoring your blood sugar , alternate between fasting and 2 hours after a meal Coding Level of Care Code Nutr Indiv Subseq (85411) Diagnoses Type 2 diabetes mellitus with hyperglycemia, without long-term current use of insulin E11.65 Diabetes mellitus type: type 2 Diabetes mellitus senior living insulin use: without intermediate frame tender use Diabetes mellitus complication status: with hyperglycemia MIRANDA (nonalcoholic steatohepatitis) K75.81 Time Spent (min) 30
== END 2024-01-23 13:12 | disposition home or self-care (01) ==
PROVIDERS: PCP Internal Medicine; Visit Provider Dietitian, Registered
DX: E11.65 Type 2 diabetes mellitus with hyperglycemia (principal); K75.81 Nonalcoholic steatohepatitis (NASH)

== ENCOUNTER → 2024-01-23 12:23 | Outpatient (BNVA) | payer OTHER, SELFPAY | PROVIDERS: PCP Internal Medicine; Visit Provider Dietitian, Registered | DX: E11.65 Type 2 diabetes mellitus with hyperglycemia (principal); K75.81 Nonalcoholic steatohepatitis (NASH) | CPT/HCPCS: 97803 ==

== ENCOUNTER 2024-04-02 14:13 | Outpatient (AMB) | payer OTHER, SELFPAY ==
[2024-04-02 14:35] VITALS: BMI 38.2
--- NOTE | 2024-04-02 14:35 | A.OFFVIS_ITS ---
VS Expanded 04/02/24 14:35 Height 4 ft 11 in Weight 188 lb 14.978 oz BMI 38.2 Intake Visit Reasons: T2DM/ CONFIRMED Allergies tetracycline [Tetracycline] Allergy (Mild, Verified 01/05/24 13:57) SWELLING Nutrition Presentation Details: Pt presents for MNT f/u for T2DM, MIRANDA Pt reports recognizing what foods are not helpful and tries to work on reducing these (pastries/sodas, empty go foods) Pt reports challenges with trying new foods ( veg, whole grain foods and new recipe_ physical activity: daily life activities, reports walking> 1 hr daily BS Monitoring Most Recent Diabetes Results: Creatinine 0.79 mg/dL (0.5-1.4) 12/23/23 Blood Urea Nitrogen 8 mg/dL (9-16) L 12/23/23 Sodium 141 mmol/L (135-145) 12/23/23 Potassium 3.7 mmol/L (3.3-5.1) 12/23/23 Chloride 106 mmol/L (96-108) 12/23/23 Carbon Dioxide 26 mmol/L (22-29) 12/23/23 Calcium 9.2 mg/dL (8.4-10.2) 12/23/23 AST 16 U/L (5-31) 12/23/23 ALT 15 U/L (0-31) 12/23/23 Total Protein 7.3 g/dL (6.5-8.0) 12/23/23 Albumin 4.0 g/dL (3.5-5.0) 12/23/23 [facility] Medical History Transaminitis Mild recurrent major depression Diabetes mellitus Migraines Obese Insomnia Depression Impaired glucose tolerance Hypovitaminosis D Surgical History H/O colonoscopy Encounter for IUD removal H/O LEEP Family History Father Heart disease CVD (cardiovascular disease) Prostate cancer Mother Diabetes mellitus Maternal Grandmother No problems noted. Maternal Grandfather No problems noted. Paternal Grandmother No problems noted. Paternal Grandfather No problems noted. Son In good health Son In good health Sister In good health Brother No problems noted. Brother No problems noted. Brother No problems noted. Social History Household Members Other:: son Housing: Apartment Alcohol intake: never Patient Tobacco Use Status: Never used Tobacco e-Cigarette/Vaping Use: Never Used Second Hand Smoke Exposure: No service: No Current occupational status: unemployed and disabled Sexual orientation: Straight/Heterosexual Gender identity: Female Cognitive needs: No Hearing needs: No Vision needs: No Female Reproductive History Menstrual Age of Menarche: 12 Assessment & Plan Assessment & Plan (1) Diabetes mellitus: Comment: A1c increased from 6.4% (06/2023) to 7.2% 12/2023 Code(s): E11.9 - Type 2 diabetes mellitus without complications Category: Medical Qualifiers: Diabetes mellitus type: type 2 Diabetes mellitus half-way insulin use: without half-way use Diabetes mellitus complication status: with hyperglycemia Qualified Code(s): E11.65 - Type 2 diabetes mellitus with hyperglycemia (2) MIRANDA (nonalcoholic steatohepatitis): Code(s): K75.81 - Nonalcoholic steatohepatitis (MIRANDA) Category: Medical Plan Work on weight loss reducing on empty calories foods and including high fiber foods Used wt :86kg (12/2023) Est kcal as per MSJ: 1751 (40% carb, 30% fat/prot) Est fluid needs: 2150 ml/d (25 ml/kg bw) Rec fiber: increase to 8-10 g per day and gradually increase to 25 g/d as tolerated Rec Na: < 1500 mg /d Educate patient on: (R= Reviewed, V = verbalizes understanding N/R= Needs review N/A= not applicable) * Food sources of carbohydrates and serving adequate serving sizes : R * Difference between complex carbohydrates and simple carbohydrates, role of fiber: R V * Differences between fats (MUFA/PUFA/saturated fats, trans fats) and food sources of various fats: R * Food sources of sodium and salt and healthy modifications for heart health and kidney health: R N/R * Vitamins and minerals: N/R * How to interpret food labels: R (fats) * Healthy Plate method concept: R V * Physical activity: benefits and precaution: R V Patient Instructions: Work on weight loss 5 lbs less by next follow up - dot heatonir de peso, 5 libras menos Include salads with protein at least 3 times a week, incluya ensalada 3 veces a la semana Continue working on reducing sugars (from cakes/pastries, juice drinks)- continue reduciendo en golocinas/bizcochos, papitas y similares) Coding Level of Care Code Nutr Indiv Subseq (25123) Diagnoses Type 2 diabetes mellitus with hyperglycemia, without long-term current use of insulin E11.65 Diabetes mellitus type: type 2 Diabetes mellitus claims sorter insulin use: without claims sorter use Diabetes mellitus complication status: with hyperglycemia MIRANDA (nonalcoholic steatohepatitis) K75.81 Time Spent (min) 30
== END 2024-04-02 15:04 | disposition home or self-care (01) ==
PROVIDERS: PCP Internal Medicine; Visit Provider Dietitian, Registered
DX: E11.65 Type 2 diabetes mellitus with hyperglycemia (principal); K75.81 Nonalcoholic steatohepatitis (NASH)

== ENCOUNTER → 2024-04-02 14:13 | Outpatient (BNVA) | payer OTHER, SELFPAY | PROVIDERS: PCP Internal Medicine; Visit Provider Dietitian, Registered | DX: E11.65 Type 2 diabetes mellitus with hyperglycemia (principal); K75.81 Nonalcoholic steatohepatitis (NASH) | CPT/HCPCS: 97803 ==

== ENCOUNTER 2024-05-02 09:37 | Outpatient (REF) | payer OTHER, SELFPAY ==
[2024-05-02 11:23] LABS: Creatinine Urine 103.62 mg/dL; Microalbum/Creatinine Ratio Ur 10.6 ug/mg cr (<30)
[2024-05-02 11:35] LABS: Alanine Aminotransferase 15 U/L (0-31); Albumin Level 4.2 g/dL (3.5-5.0); Alkaline Phosphatase 147 U/L (39-117); Anion Gap 14 (12-20); Aspartate Amino Transferase 17 U/L (5-31); Bilirubin Total 0.4 mg/dL (0.0-1.0); Blood Urea Nitrogen 8 mg/dL (9-16); Calcium 9.4 mg/dL (8.4-10.2); Carbon Dioxide 26 mmol/L (22-29); Chloride 107 mmol/L (96-108); Cholesterol 130 mg/dL (<200); Estimated Glomerular Filt Rate > 60; Glucose Fasting 133 mg/dL (60-99); HDL Cholesterol 38 mg/dL (>40); LDL Cholesterol Calculated 75 mg/dL (<100); Potassium 3.8 mmol/L (3.3-5.1); Sodium 143 mmol/L (135-145); Total Protein 7.6 g/dL (6.5-8.0); Triglycerides 85 mg/dL (<150)
[2024-05-02 11:46] LABS: Vitamin D 25-OH Total 18.8 ng/mL (>30)
== END 2024-05-02 09:38 | disposition home or self-care (01) ==
LOC: HO.LAB 09:37
PROVIDERS: PCP Internal Medicine; Visit Provider Internal Medicine
DX: Z00.00 Encounter for general adult medical examination without abnormal findings (principal); E55.9 Vitamin D deficiency, unspecified; E78.5 Hyperlipidemia, unspecified; E11.65 Type 2 diabetes mellitus with hyperglycemia
CPT/HCPCS: 36415; 80053; 80061; 82043; 82306; 82570

== ENCOUNTER 2024-05-10 14:20 | Outpatient (AMB) | payer OTHER, SELFPAY ==
--- NOTE | 2024-05-10 14:29 | A.OFFPC_ITS ---
Vital Signs 05/10/24 14:34 Height 4 ft 11 in Weight 186 lb BMI 37.6 BP 112/80 Blood Pressure Location Lt brachial Position Sitting Intake Visit Reasons: dm Intake Note: Patient here for a follow up DM Form Grader Required: No Accompanied by: Self / Same As Patient Allergies tetracycline [Tetracycline] Allergy (Mild, Verified 05/10/24 15:09) SWELLING metformin Adverse Reaction (Intermediate, Verified 05/10/24 15:09) diarrhea Medication List - Last Reconciled 05/10/24 by Genie Taylor MD [adult diapers briefs As directed] atorvastatin 40 mg PO BEDTIME 90 days blood sugar diagnostic (FreeStyle Test strips) Use 1 test strip once a day blood-glucose meter (FreeStyle [place] kit) As directed citalopram 20 mg PO DAILY 90 days fluticasone propionate 50 mcg/actuation (Flonase Allergy Relief) 1 spray intranasal BID lancets (FreeStyle Lancets) Use 1 lancet once a day metformin 500 mg PO BID 90 days trazodone 50 mg PO BEDTIME PRN 90 days underpads (Certainty Underpads) As directed Tobacco use date assessed: 01/05/24 Dental Screening Dental Screen Date: 01/05/24 HPI HPI Comments History of Present Illness Details This is a 38-year-old female with diabetes mellitus type 2, mild major depression, hyperlipidemia and low vitamin-D that comes today for follow-up on her conditions. A1c elevated. She takes metformin once a day because it gave her diarrhea. She declines the use of an injection. Will start her on Jardiance. Depression stable with citalopram. LDL very close to goal. She just restarted vitamin-D supplements for her low vitamin-D. No chest pain or shortness on breath. FORMERLY [facility], [facility] Medical History (Updated 01/31/24 @ 12:46 by Lalita Gore, RD, LDN) Transaminitis Mild recurrent major depression Diabetes mellitus Migraines Obese Insomnia Depression Impaired glucose tolerance Hypovitaminosis D Surgical History H/O colonoscopy Encounter for IUD removal H/O LEEP Family History Father Heart disease CVD (cardiovascular disease) Prostate cancer Mother Diabetes mellitus Maternal Grandmother No problems noted. Maternal Grandfather No problems noted. Paternal Grandmother No problems noted. Paternal Grandfather No problems noted. Son In good health Son In good health Sister In good health Brother No problems noted. Brother No problems noted. Brother No problems noted. Social History Household Members Other:: son Housing: Apartment Alcohol intake: never Patient Tobacco Use Status: Never used Tobacco e-Cigarette/Vaping Use: Never Used Second Hand Smoke Exposure: No service: No Current occupational status: unemployed and disabled Sexual orientation: Straight/Heterosexual Gender identity: Female Cognitive needs: No Hearing needs: No Vision needs: No Female Reproductive History Menstrual Age of Menarche: 12 Questionnaire Thrive Questionnaire Date Thrive assessed: 01/05/24 DILLON-7 AMB Questionnaire DILLON-7 Date DILLON - 7 assessed: 01/05/24 Source: Developed by Drs. Aniket Magallanes, Tammie Patiño, Vitaliy Yu and colleagues, with an educational saira from [employer]. Review of Systems Const All systems reviewed & are unremarkable except as noted in HPI and below Card Denies chest pain at rest, Denies chest pain with activity, Denies edema, Denies irregular heart rhythm, Denies claudication, Denies dyspnea, Denies dyspnea on exertion, Denies orthopnea, Denies paroxysmal nocturnal dyspnea and Denies slow heart rate Resp Denies cough, Denies dyspnea and Denies dyspnea on exertion Physical exam (Primary Care) Vital Signs: Last Vital Signs BP 112/80 05/10/24 14:34 BMI result Body Mass Index 37.6 Tobacco/Smoking Status: Tobacco use Status Tobacco use date assessed 01/05/24 05/10/24 14:29 Patient Tobacco Use Status Never used Tobacco 05/10/24 14:29 Tobacco use type 11/16/22 15:17 e-Cigarette/Vaping Use Never Used 05/10/24 14:29 Thrive Assessment: Date of Thrive Assessment Date Thrive assessed 01/05/24 05/10/24 14:29 Resp Effort & Inspection: normal respiratory effort Auscultation: clear to auscultation bilaterally Cardio Jugular venous distension: no JVD Rate: regular rate Rhythm: regular rhythm Heart sounds: S1 normal heart sound present and S2 normal heart sound present Extrem General: Yes full ROM Psych Appearance: grossly normal Results AMB Hemoglobin A1c AMB Hemoglobin A1c 7.2 % Last Edit by LYNNE Oro on 05/10/24 14:4 1 Results Reviewed Results Reviewed: Laboratory Last Values Hgb A1c (Clinic) 7.2 % (4.0-6.0) H 05/10/24 14:29 Assessment and Plan Assessment & Plan (1) Mild recurrent major depression: Code(s): F33.0 - Major depressive disorder, recurrent, mild Plan: Continue citalopram. (2) Diabetes mellitus: Comment: A1c increased from 6.4% (06/2023) to 7.2% 12/2023 Code(s): E11.9 - Type 2 diabetes mellitus without complications Qualifiers: Diabetes mellitus type: type 2 Diabetes mellitus halfway insulin use: without equipment operator intermodal yard use Diabetes mellitus complication status: with hyperglycemia Qualified Code(s): E11.65 - Type 2 diabetes mellitus with hyperglycemia Plan: Continue metformin was a day. Start Jardiance. A1c goal is equal or less than 7%. (3) Hypovitaminosis D: Code(s): E55.9 - Vitamin D deficiency, unspecified Plan: Continue vitamin-D supplements. (4) Hyperlipidemia LDL goal <70: Code(s): E78.5 - Hyperlipidemia, unspecified Plan: Continue statins. LDL goal is less than 70. Orders: Orders AMB Hemoglobin A1c Today E11.65 - Type 2 diabetes mellitus with hyperglycemia Vitamin D 25-OH Total 4 Months E55.9 - Vitamin D deficiency, unspecified Comprehensive [place]. Panel Fast 4 Months E11.65 - Type 2 diabetes mellitus with hyperglycemia Lipid Panel 4 Months E78.5 - Hyperlipidemia, unspecified Microalbumin, Random (w Creat) 4 Months E11.9 - Type 2 diabetes mellitus without complications Medications: New empagliflozin (Jardiance) 10 mg PO DAILY 90 days 90 tabs 1RF E11.65 - Type 2 diabetes mellitus with hyperglycemia empagliflozin (Jardiance) 10 mg PO DAILY 90 tabs 1RF 90 days E11.65 - Type 2 diabetes mellitus with hyperglycemia Changed From metformin 500 mg PO BID 90 days 180 tabs 1RF E11.9 - Type 2 diabetes mellitus without complications To metformin 500 mg PO DAILY 90 tabs 1RF 90 days E11.9 - Type 2 diabetes mellitus without complications Coding Level of Care Code Est Pt Level 4 (15060) Complex EM visit Add On G2211 Diagnoses Mild recurrent major depression F33.0 Type 2 diabetes mellitus with hyperglycemia, without long-term current use of insulin E11.65 Diabetes mellitus type: type 2 Diabetes mellitus equipment operator intermodal yard insulin use: without equipment operator intermodal yard use Diabetes mellitus complication status: with hyperglycemia Hypovitaminosis D E55.9 Hyperlipidemia LDL goal <70 E78.5 Time Spent (min) 22
[2024-05-10 14:34] VITALS: BP 112/80; BMI 37.6
== END 2024-05-10 15:20 | disposition home or self-care (01) ==
PROVIDERS: PCP Internal Medicine; Visit Provider Internal Medicine
DX: F33.0 Major depressive disorder, recurrent, mild (principal); E11.65 Type 2 diabetes mellitus with hyperglycemia; E55.9 Vitamin D deficiency, unspecified; E78.5 Hyperlipidemia, unspecified
CPT/HCPCS: 83036; 99214; G2211

== ENCOUNTER 2024-06-05 09:52 | Outpatient (AMB) | payer OTHER, SELFPAY ==
[2024-06-05 09:59] VITALS: BP 116/72; BMI 37.4
--- NOTE | 2024-06-05 09:59 | A.OFFVIS_ITS ---
Vital Signs 06/05/24 09:59 Height 4 ft 11 in Weight 185 lb 3.013 oz BMI 37.4 BP 116/72 Intake Visit Reasons: LITIGATION LEGAL SECRETARY annual exam/DO NOT RS [place] Operator Required: No Information Interpreted: non-clinical & clinical Interactive Designer: Interactive Designer Present (Janet Kwong LYNNE) Accompanied by: Self / Same As Patient Allergies tetracycline [Tetracycline] Allergy (Mild, Verified 06/05/24 10:00) SWELLING metformin Adverse Reaction (Intermediate, Verified 06/05/24 10:00) diarrhea Is last menstrual period known: Yes Last menstrual period: 05/30/24 HPI Comments Details: Presenting for annual exam. No complaints. Last Pap/HPV was negative in 04/19, the patient had SAVANNA 2 status post LEEP in 04/16 followed by negative co testing in 04/17 [facility] Medical History Transaminitis Mild recurrent major depression Diabetes mellitus Migraines Obese Insomnia Depression Impaired glucose tolerance Hypovitaminosis D Surgical History H/O colonoscopy Encounter for IUD removal H/O LEEP Family History Father Heart disease CVD (cardiovascular disease) Prostate cancer Mother Diabetes mellitus Maternal Grandmother No problems noted. Maternal Grandfather No problems noted. Paternal Grandmother No problems noted. Paternal Grandfather No problems noted. Son In good health Son In good health Sister In good health Brother No problems noted. Brother No problems noted. Brother No problems noted. Social History Household Members Other:: son Housing: Apartment Alcohol intake: never Patient Tobacco Use Status: Never used Tobacco e-Cigarette/Vaping Use: Never Used Second Hand Smoke Exposure: No service: No Current occupational status: unemployed and disabled Sexual orientation: Straight/Heterosexual Gender identity: Female Cognitive needs: No Hearing needs: No Vision needs: No Female Reproductive History Menstrual Age of Menarche: 12 Date of last menstrual period: 05/30/24 Review of Systems Const All systems reviewed & are unremarkable except as noted in HPI and below Card Reports as per HPI Resp Reports as per HPI GI Reports as per HPI and Reports no additional complaints Reports as per HPI Physical Exam Vital Signs: Last Vital Signs BP 116/72 06/05/24 09:59 BMI result Body Mass Index 37.4 Const General: cooperative, healthy appearing and comfortable Chest Chest palpation & inspection: normal inspection of the chest and normal palpation of entire chest wall Breast/axilla inspection: normal inspection of the breasts and normal inspection of the axillae Breast/axilla palpation: normal palpation of the breasts, normal palpation of the axillae and no axillary lymphadenopathy Resp Effort & Inspection: normal respiratory effort Auscultation: clear to auscultation bilaterally Percussion: percussion normal Cardio Palpation: normal PMI Rate: regular rate Rhythm: regular rhythm Heart sounds: no murmurs and no rubs Peripheral pulses: Peripheral pulses 2+ throughout GI Inspection: Yes normal to inspection Palpation (GI): Soft to palpation, nontender, no guarding, not rigid and No hepatosplenomegaly present Percussion: Yes normal to percussion Auscultation: normal bowel sounds Rectal Exam - Female: deferred General: Yes bladder normal to palpation External Female Exam: No lesion Speculum Exam - Vagina: normal appearance of the vagina, normal palpation, normal vaginal discharge and not erythematous Speculum Exam - Cervix: normal appearance of the cervix and normal palpation Bimanual exam- vagina & uterus: normal bimanual exam, normal palpation, uterine size normal, bladder normal to palpation, consistency normal and normal palpation Bimanual Exam- Adnexa, other: normal adnexae, no masses and no tenderness Assessment & Plan Assessment & Plan (1) Well woman exam: Comment: History of SAVANNA 2 status post LEEP with negative margin in 04/16 follow-up by negative co testing is 04/17 and negative co testing in 04/19 Code(s): Z01.419 - Encounter for gynecological examination (general) (routine) without abnormal findings Category: Medical Plan: Cotesting done. Counseled the patient about the recommended dietary allowance of 1000 mg of Calcium & 600 IU of vitamin D. The patient was instructed to perform monthly self-breast exams and to schedule an annual exam in a year; All questions answered and the patient verbalized understanding. Instructed the patient to schedule annual exam in a year Coding Level of Care Code Est Pt Prev Care 18-39y(30261) Diagnoses Well woman exam Z01.419
== END 2024-06-05 10:27 | disposition home or self-care (01) ==
PROVIDERS: Visit Provider Obstetrics & Gynecology
DX: Z01.419 Encounter for gynecological examination (general) (routine) without abnormal findings (principal)
CPT/HCPCS: 99395

== ENCOUNTER 2024-06-05 09:52 | Outpatient (REF) | payer OTHER, SELFPAY | END 2024-06-05 09:53 | disposition home or self-care (01) | LOC: HO.LNP 09:52 | PROVIDERS: Visit Provider Obstetrics & Gynecology | DX: Z01.419 Encounter for gynecological examination (general) (routine) without abnormal findings (principal) | CPT/HCPCS: 88175 ==

== ENCOUNTER 2024-08-29 09:01 | Outpatient (REF) | payer OTHER, SELFPAY ==
[2024-08-29 10:18] LABS: Creatinine Urine 118.91 mg/dL; Microalbum/Creatinine Ratio Ur 19.3 ug/mg cr (<30)
[2024-08-29 10:28] LABS: Alanine Aminotransferase 16 U/L (0-31); Alkaline Phosphatase 121 U/L (39-117); Anion Gap 12 (12-20); Aspartate Amino Transferase 17 U/L (5-31); Bilirubin Total 0.6 mg/dL (0.0-1.0); Blood Urea Nitrogen 7 mg/dL (9-16); Calcium 9.2 mg/dL (8.4-10.2); Carbon Dioxide 24 mmol/L (22-29); Chloride 108 mmol/L (96-108); Cholesterol 126 mg/dL (<200); Estimated Glomerular Filt Rate > 60; Glucose Fasting 155 mg/dL (60-99); HDL Cholesterol 37 mg/dL (>40); LDL Cholesterol Calculated 72 mg/dL (<100); Potassium 3.8 mmol/L (3.3-5.1); Sodium 140 mmol/L (135-145); Total Protein 7.2 g/dL (6.5-8.0); Triglycerides 85 mg/dL (<150)
[2024-08-29 10:49] LABS: Vitamin D 25-OH Total 27.5 ng/mL (>30)
== END 2024-08-29 09:02 | disposition home or self-care (01) ==
LOC: HO.LAB 09:01
PROVIDERS: PCP Internal Medicine; Visit Provider Internal Medicine
DX: E78.5 Hyperlipidemia, unspecified (principal); E55.9 Vitamin D deficiency, unspecified; E11.65 Type 2 diabetes mellitus with hyperglycemia
CPT/HCPCS: 36415; 80053; 80061; 82043; 82306; 82570

== ENCOUNTER 2024-09-19 09:04 | Outpatient (AMB) | payer OTHER, SELFPAY ==
[2024-09-19 09:15] VITALS: BMI 38.8
--- NOTE | 2024-09-19 09:15 | A.OFFVIS_ITS ---
VS Expanded 09/19/24 09:15 Height 4 ft 11 in Weight 192 lb 3.889 oz BMI 38.8 Intake Visit Reasons: T2DM/CONFIRMED Allergies tetracycline [Tetracycline] Allergy (Mild, Verified 06/05/24 10:00) SWELLING metformin Adverse Reaction (Intermediate, Verified 06/05/24 10:00) diarrhea Nutrition Presentation Details: Pt presents for MNT f/u for T2DM Pt reports challenges with increased appetite at night. Reports little consumption of vitamin D foods and having sedentary lifestyle BS Monitoring Most Recent Diabetes Results: Microalb/Creat Ratio 19.3 ug/mg cr (<30) 08/29/24 Cholesterol 126 mg/dL (<200) 08/29/24 HDL Cholesterol 37 mg/dL (>40) L 08/29/24 Triglycerides 85 mg/dL (<150) 08/29/24 Creatinine 0.80 mg/dL (0.5-1.4) 08/29/24 Blood Urea Nitrogen 7 mg/dL (9-16) L 08/29/24 Sodium 140 mmol/L (135-145) 08/29/24 Potassium 3.8 mmol/L (3.3-5.1) 08/29/24 Chloride 108 mmol/L (96-108) 08/29/24 Carbon Dioxide 24 mmol/L (22-29) 08/29/24 Calcium 9.2 mg/dL (8.4-10.2) 08/29/24 AST 17 U/L (5-31) 08/29/24 ALT 16 U/L (0-31) 08/29/24 Total Protein 7.2 g/dL (6.5-8.0) 08/29/24 Albumin 4.0 g/dL (3.5-5.0) 08/29/24 [facility] Medical History Transaminitis Mild recurrent major depression Diabetes mellitus Migraines Obese Insomnia Depression Impaired glucose tolerance Hypovitaminosis D Surgical History H/O colonoscopy Encounter for IUD removal H/O LEEP Family History Father Heart disease CVD (cardiovascular disease) Prostate cancer Mother Diabetes mellitus Maternal Grandmother No problems noted. Maternal Grandfather No problems noted. Paternal Grandmother No problems noted. Paternal Grandfather No problems noted. Son In good health Son In good health Sister In good health Brother No problems noted. Brother No problems noted. Brother No problems noted. Social History Household Members Other:: son Housing: Apartment Alcohol intake: never Patient Tobacco Use Status: Never used Tobacco e-Cigarette/Vaping Use: Never Used Second Hand Smoke Exposure: No service: No Current occupational status: unemployed and disabled Sexual orientation: Straight/Heterosexual Gender identity: Female Cognitive needs: No Hearing needs: No Vision needs: No Female Reproductive History Menstrual Age of Menarche: 12 Assessment & Plan Assessment & Plan (1) Diabetes mellitus: Comment: A1c increased from 6.4% (06/2023) to 7.2% 12/2023 Code(s): E11.9 - Type 2 diabetes mellitus without complications Category: Medical Qualifiers: Diabetes mellitus type: type 2 Diabetes mellitus intermediate project manager insulin use: without fdc use Diabetes mellitus complication status: with hyperglycemia Qualified Code(s): E11.65 - Type 2 diabetes mellitus with hyperglycemia (2) MIRANDA (nonalcoholic steatohepatitis): Code(s): K75.81 - Nonalcoholic steatohepatitis (MIRANDA) Category: Medical Plan Work on weight loss reducing on empty calories foods and including high fiber foods - continue Used wt :86kg (12/2023) Est kcal as per MSJ: 1751 (40% carb, 30% fat/prot) Est fluid needs: 2150 ml/d (25 ml/kg bw) Rec fiber: increase to 8-10 g per day and gradually increase to 25 g/d as tolerated Rec Na: < 1500 mg /d Educate patient on: (R= Reviewed, V = verbalizes understanding N/R= Needs review N/A= not applicable) * Food sources of carbohydrates and serving adequate serving sizes : R * Difference between complex carbohydrates and simple carbohydrates, role of fiber: R V * Differences between fats (MUFA/PUFA/saturated fats, trans fats) and food sources of various fats: R * Food sources of sodium and salt and healthy modifications for heart health and kidney health: R N/R * Vitamins and minerals: R- role of vitamin D and food sources and physical activity for better absorption * How to interpret food labels: R (fats) * Healthy Plate method concept: R V * Physical activity: benefits and precaution: R V Patient Instructions: Engage in physical activity 30 minutes, daily; walking , marching in place Choose high fiber foods as bedtime snacks- carrots with peanut butter, apple with cheese, salad and chicken - see list of ideas to choose from Coding Level of Care Code Nutr Indiv Subseq (88403) Diagnoses Type 2 diabetes mellitus with hyperglycemia, without long-term current use of insulin E11.65 Diabetes mellitus type: type 2 Diabetes mellitus fdc insulin use: without fdc use Diabetes mellitus complication status: with hyperglycemia MIRANDA (nonalcoholic steatohepatitis) K75.81 Time Spent (min) 30
== END 2024-09-19 09:55 | disposition home or self-care (01) ==
PROVIDERS: PCP Internal Medicine; Visit Provider Dietitian, Registered
DX: E11.65 Type 2 diabetes mellitus with hyperglycemia (principal); K75.81 Nonalcoholic steatohepatitis (NASH)

== ENCOUNTER → 2024-09-19 09:04 | Outpatient (BNVA) | payer OTHER, SELFPAY | PROVIDERS: PCP Internal Medicine; Visit Provider Dietitian, Registered | DX: E11.65 Type 2 diabetes mellitus with hyperglycemia (principal); K75.81 Nonalcoholic steatohepatitis (NASH) | CPT/HCPCS: 97803 ==

== ENCOUNTER 2024-12-03 19:00 | Emergency (ER) | payer OTHER, SELFPAY ==
--- NOTE | ~2024-12-03 | XR_ITS ---
CLINICAL HISTORY: Fall 4 view left knee Comparison: None Findings: No fractures or dislocations. No significant arthritic change or erosions. No joint effusion. No radiopaque foreign body. IMPRESSION: 1. No acute findings. This document has been electronically signed by: Ishmael Ambrosio MD on 12/03/2024 21:20:15
--- NOTE | ~2024-12-03 | XR_ITS ---
CLINICAL HISTORY: Fall 5 view right knee Comparison: None Findings: Bones intact. No dislocations. No significant loss of joint space, osteophytes, or erosions. No joint effusion. No radiopaque foreign body. IMPRESSION: 1. No acute findings. This document has been electronically signed by: Ishmael Ambrosio MD on 12/03/2024 21:17:56
--- NOTE | ~2024-12-03 | XR_ITS ---
CLINICAL HISTORY: fall Three-view right hand and one view right wrist Comparison: None Findings: Bones intact. No dislocations. No significant arthritic change. No erosions. No radiopaque foreign body. IMPRESSION: 1. No acute findings This document has been electronically signed by: Ishmael Ambrosio MD on 12/03/2024 21:37:09
[2024-12-03 20:12] VITALS: BP 142/85; PULSE 75; RESP 18; TEMP 36.6; O2SAT 98; BMI 38.2
--- NOTE | 2024-12-03 20:17 | ED.GENADULT ---
HPI - General Adult General Chief complaint: Extremity Injury, Lower Stated complaint: bilat knee pain s/p fall Time Seen by Provider: 12/03/24 23:44 Source: patient Mode of arrival: ambulatory Limitations: no limitations History of Present Illness ED Provider: CARLY HPI narrative: 39 yo female with PMH of DM here with c/o fall on 11/29 no headstrike or LOC. Reports pain in both knees and R hand as she landed on them. She was able to walk to the bed. She denies any other symptoms states OTC meds do not help. Pain is worse at nighttime MD complaint: fall Onset (ago): day(s) (3) Location: left, right, upper extremity and lower extremity Radiation: non-radiation Severity: moderate Quality: aching Pain Consistency: intermittent Relieving factors: none Exacerbating factors: movement Associated symptoms: denies other symptoms Treatments prior to arrival: none Related Data Previous Rx's ?Medication ?Instructions ?Recorded blood sugar diagnostic (FreeStyle #100 ea 05/28/21 Test strips) blood-glucose meter (FreeStyle #1 ea 05/28/21 [place] kit) lancets 28 gauge (FreeStyle #100 ea 05/28/21 Lancets) adult diapers briefs #120 ea 10/30/22 underpads 30 X 36 (Certainty #48 ea 10/30/22 Underpads) fluticasone propionate 50 1 spray intranasal BID #16 grams 06/24/23 mcg/actuation nasal spray,suspension (Flonase Allergy Relief) trazodone 50 mg tablet 50 mg PO BEDTIME PRN sleep 90 days 04/26/24 #90 tabs empagliflozin 10 mg tablet 10 mg PO DAILY 90 days #90 tabs 05/10/24 (Jardiance) atorvastatin 40 mg tablet 40 mg PO BEDTIME 90 days #90 tabs 07/25/24 naproxen 250 mg tablet 250 mg PO BID PRN pain 30 days #60 07/28/24 tabs citalopram 20 mg tablet 20 mg PO DAILY 90 days #90 tabs 08/31/24 metformin 500 mg tablet 500 mg PO DAILY 90 days #90 tabs 11/22/24 cyclobenzaprine 10 mg tablet 10 mg PO TID PRN muscle spasm #20 12/03/24 tabs lidocaine 5 % topical patch 1 patch topical DAILY #30 ea 12/03/24 Allergies Allergy/AdvReac Type Severity Reaction Status Date / Time tetracycline [Tetracycline] Allergy Intermediate SWELLING Verified 12/03/24 20:17 Review of Systems Review of Systems: Constitutional : No Fever, No Chills ENT/Mouth : No Ear Pain, No Hoarseness, No sore throat Eyes: No Eye Pain, No Swelling, No Redness, No Foreign Body Cardiovascular : No Chest Pain, No SOB Respiratory : No Cough, No Dyspnea Gastrointestinal : No Nausea, No Vomiting, No Diarrhea, No abdominal Pain Genitourinary : No Dysuria, No Hematuria Musculoskeletal : positive joint pain, No Myalgias, No Joint Swelling Skin : No Skin lacerations, No rash Neuro : No Weakness, No Numbness, No Loss of Consciousness, No Dizziness, No Headache All other systems reviewed and are negative [facility] Past Medical History Attestation statement: The following information was validated with the patient. Source: old records reviewed Medical History Transaminitis Mild recurrent major depression Diabetes mellitus Migraines Obese Insomnia Depression Impaired glucose tolerance Hypovitaminosis D Surgical History H/O colonoscopy Encounter for IUD removal H/O LEEP Family History Family History Father Heart disease CVD (cardiovascular disease) Prostate cancer Mother Diabetes mellitus Maternal Grandmother No problems noted. Maternal Grandfather No problems noted. Paternal Grandmother No problems noted. Paternal Grandfather No problems noted. Son In good health Son In good health Sister In good health Brother No problems noted. Brother No problems noted. Brother No problems noted. Social History Social History Household Members Other:: son Housing: Apartment Alcohol intake: never Patient Tobacco Use Status: Never used Tobacco Smoked in Last 30 Days: No e-Cigarette/Vaping Use: Never Used Second Hand Smoke Exposure: No Use of substances other than those prescribed or required for medical reasons: No Any prior treatment program specific to substance use: No Advance Directives: No Advance Directives Information Provided: Yes Patient : No service: No Current occupational status: unemployed and disabled Sexual orientation: Straight/Heterosexual Gender identity: Female Cognitive needs: No Hearing needs: No Vision needs: No Physical Exam ED Vital Signs: Vital Signs - 24 hr 12/03/24 20:12 12/04/24 02:24 Temperature 97.9 F 97.9 F Pulse Rate 75 75 Respiratory Rate 18 18 Blood Pressure 142/85 H 142/85 H Pulse Oximetry 98 98 Oxygen Delivery Method Room Air Room Air BMI result Body Mass Index 38.2 Appearance: Alert. Oriented X3. No acute distress. Eyes: Pupils equal, round and reactive to light. ENT: Pharynx normal. Neck: Normal inspection. Neck supple. CVS: Normal heart rate and rhythm. Pulses normal. Respiratory: No respiratory distress. Breath sounds normal. Abdomen: Soft and nontender. Skin: Skin warm and dry. Normal skin color. Normal skin turgor. Extremities: No lower extremity edema. holding two cups of water in both hands no signs of trauma or deformity, R knee old scabbed area on patella but otherwise no effusion and normal appearing Neuro: Oriented X 3. No motor deficit. No sensory deficit. CN2-12 intact Course Course Course Narrative: RME: 39 yold female presents to the ED for bilateral knee pain after falling and knees on grouind last . patient denies hitting head or loss of consciousness. Patient also states right hand pain. X-rays ordered. Medications Administered Discontinued Medications Generic Name Dose Route Start Last Admin Trade Name Freq PRN Reason Stop Dose Admin Cyclobenzaprine HCl 10 mg 12/03/24 23:56 12/04/24 00:20 Cyclobenzaprine Hcl 10 Mg Tablet PO 12/03/24 23:57 10 mg ONCE ONE Administration Medical Decision Making Medical Decision Making MDM Narrative: 39 yo female with DM here with fall 3 days ago and c/o both knee and wrist pain - xrays from triage negative and her physical exam shows no deformity or swelling, NV intact, using both hand without issue at this time will start on supportive medications and DC home. Differential Diagnosis Differential Diagnoses: The differential diagnosis associated with the presentation includes contusion, abrasion Independent Interpretation I performed an independent interpretation of an: Plain X-Ray (no trauma) Radiology Impression Discussion of test interpretation with radiology: I have reviewed the radiologist's reading. External Record Review External record reviewed: Outpatient record Prescription Management I considered prescription management with: Pain Medication Discharge Plan Discharge Clinical Impression: Contusion Qualifiers: Encounter type: initial encounter Contusion area: knee Laterality: unspecified laterality Qualified Code(s): S80.00XA - Contusion of unspecified knee, initial encounter Patient Disposition: Home, Self-Care Instructions: Contusion in Adults (ED) Additional Instructions: xrays negative for broken bones return for any worsening symptoms alternate tylenol/motrin with the muscle relaxer Prescriptions: New cyclobenzaprine 10 mg tablet 10 mg PO TID PRN (Reason: muscle spasm) Qty: 20 0RF lidocaine 5 % adhesive patch,medicated 1 patch topical DAILY Qty: 30 0RF Rx Instructions: leave on most painful area for up to 12 hrs No Action (DME) adult diapers briefs XL See Rx Instructions .Route .MEDSUPPLY Qty: 120 1RF Rx Instructions: As directed (DME) underpads [Certainty Underpads] 30 X 36 pad See Rx Instructions .Route Qty: 48 3RF Rx Instructions: As directed fluticasone propionate [Flonase Allergy Relief] 50 mcg/actuation spray,suspension 1 spray intranasal BID Qty: 16 3RF Rx Instructions: administer into each nostril 1 time in the morning and 1 time at night trazodone 50 mg tablet 50 mg PO BEDTIME PRN (Reason: sleep) 90 Days Qty: 90 3RF atorvastatin 40 mg tablet 40 mg PO BEDTIME 90 Days Qty: 90 1RF naproxen 250 mg tablet 250 mg PO BID PRN (Reason: pain) 30 Days Qty: 60 0RF citalopram 20 mg tablet 20 mg PO DAILY 90 Days Qty: 90 1RF metformin 500 mg tablet 500 mg PO DAILY 90 Days Qty: 90 1RF (DME) blood-glucose meter [FreeStyle [place]] Kit See Rx Instructions .ROUTE .MEDSUPPLY Qty: 1 0RF Rx Instructions: As directed (DME) lancets [FreeStyle Lancets] 28 gauge misc See Rx Instructions .ROUTE .MEDSUPPLY Qty: 100 3RF Rx Instructions: Use 1 lancet once a day (DME) FreeStyle Test Strip See Rx Instructions .ROUTE .MEDSUPPLY Qty: 100 3RF Rx Instructions: Use 1 test strip once a day Jardiance 10 mg tablet 10 mg PO DAILY 90 Days Qty: 90 1RF Stand Alone Forms: Work/School Release Interventions: ED Discharge Assessment Last Done: 12/04/24 02:24 Discharge Date/Time: 12/04/24 00:20 Print Language: Romansh
[2024-12-04] MEDS: Cyclobenzaprine HCl 10 MG TABLET PO (00:20)
[2024-12-04 02:24] VITALS: BP 142/85; PULSE 75; RESP 18; TEMP 36.6; O2SAT 98
== END 2024-12-04 00:20 | disposition home or self-care (01) ==
PROVIDERS: Emergency Provider Emergency Medicine; PCP Internal Medicine
DX: S80.02XA Contusion of left knee, initial encounter (principal); S80.01XA Contusion of right knee, initial encounter; W01.0XXA Fall on same level from slipping, tripping and stumbling without subsequent striking against object, initial encounter; M79.641 Pain in right hand; Y93.9 Activity, unspecified; Y92.039 Unspecified place in apartment as the place of occurrence of the external cause; Y99.9 Unspecified external cause status
CPT/HCPCS: 73110; 73130; 73564; 99283; 99284

== ENCOUNTER → 2024-12-03 20:17 | Outpatient (BNV) | payer OTHER, SELFPAY | PROVIDERS: PCP Internal Medicine; Visit Provider Radiology Vascular & Interventional Radiology | DX: M25.561 Pain in right knee (principal); M25.562 Pain in left knee; W19.XXXA Unspecified fall, initial encounter | CPT/HCPCS: 73564 ==

== ENCOUNTER 2025-01-07 14:38 | Outpatient (AMB) | payer OTHER, SELFPAY ==
--- NOTE | 2025-01-07 14:40 | A.OFFPC_ITS ---
Vital Signs 01/07/25 14:41 Height 4 ft 11 in Weight 188 lb 8 oz BMI 38.1 BP 130/88 Blood Pressure Location Lt brachial Position Sitting Pulse 91 Pulse Source Pulse Oximeter Temp 97.5 F Temp Source Skin Pulse Oximetry (%) 97 Oxygen Delivery Method Room Air Intake Visit Reasons: Annual exam Intake Note: Patient is here today for a physical. Synthetic Chemist Required: No Air Shovel Operator: Not Required per policy Accompanied by: Self / Same As Patient Allergies empagliflozin [From Jardiance] Allergy (Intermediate, Verified 01/07/25 15:02) frequency Urination tetracycline [Tetracycline] Allergy (Intermediate, Verified 01/07/25 15:02) SWELLING Medication List - Last Reconciled 01/07/25 by Coby Moser PA-C [adult diapers briefs As directed] atorvastatin 40 mg PO BEDTIME 90 days blood sugar diagnostic (FreeStyle Test strips) Use 1 test strip once a day blood-glucose meter (FreeStyle [place] kit) As directed citalopram 20 mg PO DAILY 90 days cyclobenzaprine 10 mg PO TID PRN fluticasone propionate 50 mcg/actuation (Flonase Allergy Relief) 1 spray intranasal BID lancets (FreeStyle Lancets) Use 1 lancet once a day lidocaine 5% 1 patch topical DAILY metformin 500 mg PO DAILY 90 days naproxen 250 mg PO BID PRN 30 days trazodone 50 mg PO BEDTIME PRN 90 days underpads (Certainty Underpads) As directed Tobacco use date assessed: 01/07/25 Dental Screening Dental Screen Date: 01/07/25 Did you have a dental visit in the last 12 months?: No Did you have a dental problem in the last 6 months where you did not have access to dental care?: No Was dental information given to patient?: Patient has dentist HPI Annual exam HPI Details 39-year-old female with past medical his tory of diabetes mellitus type 2, depression, hyperlipidemia and low vitamin-D last seen by Dr. Sow 04/2024 coming in for annual exam.? In review of the notes, patient was [place] [facility] [place] after a fall patient was given cyclobenzaprine and lidocaine as x-rays were negative and patient was discharged home. Patient tells us today she stopped using the Jardiance due to increased urination. Since discontinuation she has seen an improvement in the frequency. Depression and Anxiety are well managed with citalopram, no recent exacerbations of symptoms reported. Patient regularly follows with calendering supervisor for allergy shots weekly for management of allergic rhinitis. Her sleep is well managed with Trazodone. She manages her headaches with NAproxen and has about 4-5 headaches per month. He recently was seen by [facility] and got a new prescription for glasses. mammogram: will be due this year paps: UTD follows with medical assistant ob gyn last seen 05/2024. [facility] Medical History Transaminitis Mild recurrent major depression Diabetes mellitus Migraines Obese Insomnia Depression Impaired glucose tolerance Hypovitaminosis D Surgical History H/O colonoscopy Encounter for IUD removal H/O LEEP Family History Father Heart disease CVD (cardiovascular disease) Prostate cancer Mother Diabetes mellitus Maternal Grandmother No problems noted. Maternal Grandfather No problems noted. Paternal Grandmother No problems noted. Paternal Grandfather No problems noted. Son In good health Son In good health Sister In good health Brother No problems noted. Brother No problems noted. Brother No problems noted. Social History Household Members Other:: son Housing: Apartment Alcohol intake: never Patient Tobacco Use Status: Never used Tobacco e-Cigarette/Vaping Use: Never Used Second Hand Smoke Exposure: No service: No Current occupational status: unemployed and disabled Sexual orientation: Straight/Heterosexual Gender identity: Female Cognitive needs: No Hearing needs: No Vision needs: No Female Reproductive History Menstrual Age of Menarche: 12 Questionnaire PHQ-9 Over the last 2 weeks, how often have you been bothered by any of the following problems? 1. Little interest or pleasure in doing things: not at all 2. Feeling down, depressed, or hopeless: not at all 3. Trouble falling or staying asleep, or sleeping too much: not at all 4. Feeling tired or having little energy: not at all 5. Poor appetite or overeating: not at all 6. Feeling bad about yourself - or that you are a failure or have let yourself or your family down: not at all 7. Trouble concentrating on things, such as reading the newspaper or watching television: not at all 8. Moving or speaking so slowly that other people could have noticed. Or the opposite - being so fidgety or restless that you have been moving around a lot more than usual: not at all 9. Thoughts that you would be better off or of hurting yourself in some way: not at all Total score: 0 Depression Screening Interpretation: Negative Depression Screening Done: Yes Source: Developed by Drs. Aniket Magallanes, Tammie Patiño, Vitaliy Yu and colleagues, with an educational saira from [employer]. Thrive Questionnaire Date Thrive assessed: 01/07/25 I am a: Patient What is your living situation today?: I choose not to answer this question Within the past 12 months, did the food you bought not last and you didn't have the money to get more?: Often true Within the past 12 months, did you worry whether your food would run out before you got money to buy more?: Often true Do you have trouble paying for medicines?: No Do you have trouble getting transportation to medical appointments?: No Do you have trouble paying your heating and electricity bill?: No Do you have trouble taking care of your child, family member or friend?: No Do you have trouble with day-to-day activities such as bathing, preparing meals, shopping, managing finances, etc.?: No Are you currently unemployed and looking for a job?: No Are you interested in more education?: No Please select the resources that you would like help with: Food Currently or been in a relationship where the following occur: I choose not to answer THRIVE Score: 2 AUDIT C Alcohol Use Questionnaire (AUDIT-C) 1. How often do you have a drink containing alcohol?: Never Total Score: 0 DILLON-7 AMB Questionnaire DILLON-7 Date DILLON - 7 assessed: 01/07/25 Feeling nervous, anxious, or on edge: 0 = Not at all Not being able to stop or control worryin = Not at all Worrying too much about different things: 0 = Not at all Trouble relaxin = Not at all Being so restless that it is hard to sit still: 0 = Not at all Becoming easily annoyed or irritable: 0 = Not at all Feeling afraid as if something awful might happen: 0 = Not at all Total DILLON-7 score (0-4 normal; 5-9 mild; 10-14 moderate; 15-21 severe): 0 Source: Developed by Drs. Aniket Magallanes, Tammie Patiño, Vitaliy Yu and colleagues, with an educational saira from [employer]. Review of Systems Const Denies body aches, Denies chills, Denies fever(s), Reports headache(s) and Denies poor appetite Eyes Reports no additional complaints ENT Denies dysphagia, Denies dizziness, Reports headache(s) and Denies odynophagia Card Denies chest pain, Denies syncope, Denies edema, Denies irregular heart rhythm, Denies lightheadedness and Denies dyspnea Resp Denies cough and Denies dyspnea GI Denies abdominal pain, Denies constipation, Denies dysphagia, Reports diarrhea (with metformin), Denies nausea, Denies odynophagia and Denies vomiting Reports no additional complaints Musc Reports no additional complaints and Denies abnormal gait Skin/Breast Reports system reviewed and no additional complaints, except as documented Neuro Denies abnormal gait, Denies dizziness, Denies syncope and Reports headache(s) Psych Reports no additional complaints Physical exam (Primary Care) Vital Signs: Last Vital Signs Temp 97.5 F 01/07/25 14:41 Pulse 91 01/07/25 14:41 BP 130/88 01/07/25 14:41 Pulse Ox 97 01/07/25 14:41 Oxygen Delivery Method Room Air 01/07/25 14:41 BMI result Body Mass Index 38.1 Tobacco/Smoking Status: Tobacco use Status Tobacco use date assessed 01/07/25 01/07/25 14:49 Patient Tobacco Use Status Never used Tobacco 01/07/25 14:49 Tobacco use type 11/16/22 15:17 e-Cigarette/Vaping Use Never Used 01/07/25 14:49 PHQ-9: PHQ-9 Score PHQ-9: Total score 0 01/07/25 15:14 Depression Screening Interpretation: Negative Thrive Assessment: Date of Thrive Assessment Date Thrive assessed 01/07/25 01/07/25 14:49 Currently or been in a relationship where the following occur: I choose not to answer Const General: cooperative, healthy appearing, comfortable and no acute distress Orientation/consciousness: patient oriented x3 HENMT Head: Yes normocephalic Ears: hearing grossly normal bilaterally, external ears normal, TM's normal bilaterally and EAC's normal General nose exam: Normal external nose present Face and sinus: Yes normal facial exam and Yes sinuses nontender Mouth: Normal oral and palatal mucosa present and tongue normal Throat: Yes posterior oropharynx normal Eyes General: appearance normal, both eyes and all related structures Conjunctivae: conjunctivae normal Pupils: Equal, round and reactive pupils present EOM: EOMs intact bilaterally and No Nystagmus present Neck Neck: Yes normal visual inspection, Yes full ROM and Yes no lymphadenopathy Chest Chest palpation & inspection: normal inspection of the chest Resp Effort & Inspection: normal respiratory effort Auscultation: clear to auscultation bilaterally, no crackles, no rales, no rhonchi, no wheezes and breath sounds present Cardio Rate: regular rate Rhythm: regular rhythm Peripheral pulses: radial pulses present and dorsalis pedis present GI Inspection: Yes normal to inspection and No Abdominal wall edema Palpation (GI): Soft to palpation, not firm and nontender Auscultation: normal bowel sounds Rectal Exam - Female: deferred General: Yes no CVA tenderness Back/Spine/Pelvis Back: no CVA tenderness Skin General skin exam: no rashes or lesions noted Neuro General: patient oriented x3 Cranial nerves: Yes Equal, round and reactive pupils present, Yes Midline tongue present, Yes Ability to bilaterally elevate shoulders present and No Nystagmus present Gait exam (Neuro): Normal gait present Extrem General: Yes normal to inspection, Yes full ROM, No no pedal edema and No edema Psych Speech and movement: Normal speech and movement present Affect: normal affect Insight: Good insight present (Psych) Judgement: Good judgement present (Psych) Results AMB Hemoglobin A1c AMB Hemoglobin A1c 8.2 % Last Edit by LYNNE Madrigal on 01/07/25 15:15 Results Reviewed Results Reviewed: Laboratory Last Values Hgb A1c (Clinic) 8.2 % (4.0-6.0) H 01/07/25 14:50 Coding Level of Care Code Est Pt Prev Care 18-39y(85256) Diagnoses Hyperlipidemia LDL goal <70 E78.5 Mild recurrent major depression F33.0 MIRANDA (nonalcoholic steatohepatitis) K75.81 Type 2 diabetes mellitus with hyperglycemia, without long-term current use of insulin E11.65 Diabetes mellitus complication status: with hyperglycemia Diabetes mellitus terminal make up operator insulin use: without terminal make up operator use Diabetes mellitus type: type 2 Migraine without aura and without status migrainosus, not intractable G43.009 Intractability: not intractable Migraine type: without aura Status migrainosus presence: without status migrainosus Obese E66.9 Psychophysiological insomnia F51.04 Insomnia type: psychophysiologic Hypovitaminosis D E55.9 Physical exam Z00.00 Chronic sinusitis J32.9 Assessment & Plan Assessment & Plan (1) Hyperlipidemia LDL goal <70: Code(s): E78.5 - Hyperlipidemia, unspecified Category: Medical Plan: Avoid foods that are high in cholesterol such as red meat, fried foods, eggs and baked goods. Triglyceride goal of less than 150 and LDL goal of less than 70. Continue on atorvastatin 40 mg. Ordered for repeat cholesterol labs (2) Mild recurrent major depression: Code(s): F33.0 - Major depressive disorder, recurrent, mild Category: Medical Plan: Patient currently on trazodone 50 mg and citalopram feels symptoms are well managed at this time (3) MIRANDA (nonalcoholic steatohepatitis): Code(s): K75.81 - Nonalcoholic steatohepatitis (MIRANDA) Category: Medical Plan: Healthy diet and regular exercise is encouraged. Continue to monitor LFTs (4) Diabetes mellitus: Comment: A1c increased from 6.4% (06/2023) to 7.2% 12/2023 Code(s): E11.9 - Type 2 diabetes mellitus without complications Category: Medical Qualifiers: Diabetes mellitus complication status: with hyperglycemia Diabetes mellitus senior living insulin use: without senior living use Diabetes mellitus type: type 2 Qualified Code(s): E11.65 - Type 2 diabetes mellitus with hyperglycemia Plan: Decrease the amount of carbohydrates such as pasta, bread, rice, and potatoes and limit the amount of sweets. Although fruits are generally healthy they should be eaten in moderation as they are still high in sugar. Hemoglobin A1c goal of less than 7%. Currently on metformin. A1c elevated at 8.2% today in the office. Patient is declining injections both GLP 1 and insulin injections. Discussed with patient 8.2% is significantly elevated since her last visit. Recommending starting on Januvia for blood sugar management and follow up with Dr. Sow in 2 days as scheduled to discuss new medication regimen. (5) Migraines: Code(s): G43.909 - Migraine, unspecified, not intractable, without status migrainosus Category: Medical Qualifiers: Intractability: not intractable Migraine type: without aura Status migrainosus presence: without status migrainosus Qualified Code(s): G43.009 - Migraine without aura, not intractable, without status migrainosus Plan: Patient feels she is well managed on the naproxen 375. Reminded to take with plenty of food and water. (6) Obese: Code(s): E66.9 - Obesity, unspecified Category: Medical Plan: Healthy diet and regular exercise is encouraged. (7) Insomnia: Code(s): G47.00 - Insomnia, unspecified Category: Medical Qualifiers: Insomnia type: psychophysiologic Qualified Code(s): F51.04 - Psychophys iologic insomnia Plan: Continue on trazodone 50 mg feels her symptoms are well managed at this time (8) Hypovitaminosis D: Code(s): E55.9 - Vitamin D deficiency, unspecified Category: Medical Plan: Not currently on medical management continue to monitor with serial blood work. (9) Physical exam: Code(s): Z00.00 - Encounter for general adult medical examination without abnormal findings Category: Medical Plan: Patient is up-to-date on all recommended routine screenings and vaccinations for her age. Blood work is up-to-date we will order for repeat cholesterol labs. Continue with regularly scheduled appointments with Dr. Sow. (10) Chronic sinusitis: Code(s): J32.9 - Chronic sinusitis, unspecified Category: Medical Plan: Continue to follow with calendering supervisor for weekly allergy shots. Plan Patient was informed and verbally consented to the use of an ambient scribe for clinic note documentation during this visit. This note was constructed using voice recognition software. While every effort has been made to ensure accuracy and supervisor adult education, still areas may have been included sometimes these areas may affect the content or meeting of the given symptoms. Total time spent caring for the patient today was 30 minutes. This includes time spent before the visit reviewing the chart, time spent during the visit, and time spent after the visit and documentation. Orders: Orders MM tomosynthesis screening BI Today Z12.31 - Encounter for screening mammogram for malignant neoplasm of breast AMB Hemoglobin A1c Today E11.65 - Type 2 diabetes mellitus with hyperglycemia Lipid Panel Today E78.00 - Pure hypercholesterolemia, unspecified Medications: New naproxen 375 mg PO BID PRN 60 tabs 0RF pain cholecalciferol (vitamin D3) 25 mcg PO DAILY 90 caps 3RF sitagliptin phosphate (Januvia) 25 mg PO DAILY 90 tabs 1RF Discontinued naproxen Discontinued Reason: Patient no longer taking 250 mg PO BID 30 days PRN 60 tabs 0RF pain
[2025-01-07 14:41] VITALS: BP 130/88; PULSE 91; TEMP 36.4; O2SAT 97; BMI 38.1
--- OUTSIDE RECORDS SUMMARY | 2025-01-07 15:57 | XMS_ITS | Encounter Summary ---
Author Organization [employer] [facility] Address [address] [place] [address] Care Team Providers Care Vp Transportation Name Role Phone Unavailable Primary Care Provider Unavailabl e Encounter Details Date Type Department Care Team (Latest Contact Info) Description 11/07/2019 Abstract C CONVERSIONS Dental, Provider, DDS Social History Tobacco Use Types Packs/Day Years Used Date Smoking Tobacco: Never Assessed Comments Unknown Sex and Gender Information Value Date Recorded Sex Assigned at Female 09/27/2022 10:14 AM EDT Legal Sex Female 10:14 AM EDT Gender Identity Female 09/27/2022 10:14 AM EDT Sexual Orientation Don't know 09/27/2022 10 :14 AM EDT documented as of this encounter Plan of Treatment Not on file documented as of this encounter Visit Diagnoses Not on filedocumented in this encounter
--- OUTSIDE RECORDS SUMMARY | 2025-01-07 15:57 | XMS_ITS | Encounter Summary ---
Author Organization [facility] Address [address] [place] [address] Care Team Providers Care Locomotive Switch Operator Name Role Phone Unavailable Primary Care Provider Unavailabl e Encounter Details Date Type Department Care Team (Latest Contact Info) Description 03/05/2022 Abstract C CONVERSIONS Dental, Provider, DDS Social [...]
--- OUTSIDE RECORDS SUMMARY | 2025-01-07 15:57 | XMS_ITS | Encounter Summary ---
Author Organization [employer] [facility] Address [address] [place] [address] Care Team Providers Care Disaster Recovery Analyst Name Role Phone Unavailable Primary Care Provider Unavailabl e Encounter Details Date Type Department Care Team (Late st Contact Info) Description 11/09/2022 Abstract [facility] [address] [place] [address] Allison Cordero DDS [address] [place] [address] Social History Tobacco Use Types Packs/Day Years [...]
--- OUTSIDE RECORDS SUMMARY | 2025-01-07 15:57 | XMS_ITS | Clinical Summary ---
Author Organization [employer] Address [address] [place] [address] Care Team Providers Care Mammography Technologist Name Role Phone Unavailable Primary Care Provider Unavailabl e Allergies No known active allergies Medications traZODone (Desyrel) 50 MG tablet Take 1 tablet by mouth every 8 (eight) hours. Active atorvastatin (Lipitor) 20 MG tablet 2 Active cetirizine (ZyrTEC) 10 MG tablet Take 10 mg by mouth in the morning. 2 Active cholecalciferol (Vitamin D-3) 25 MCG tablet Take 25 mcg by mouth in the morning. 2 Active citalopram (CeleXA) 20 MG tablet Take 20 mg by mouth in the morning. 2 Active FREESTYLE LITE test strip TEST BLOOD SUGAR EVERY DAY DIRECTED 2 Active cromolyn (Opticrom) 4 % ophthalmic solution 2 Active fluticasone (Flonase) 50 MCG/ACT nasal spray 1 SPRAY INTRANASALLY 2 TIMES A DAY ADMINISTER INTO EACH NOSTRIL IN THE MORNING AND 1 AT NIGHT 2 Active metFORMIN (Glucophage) 500 MG tablet Take 500 mg by mouth in the morning and at bedtime. 2 Active naproxen (Naprosyn) 375 MG tablet 2 Active cholecalciferol (Vitamin D-3) 25 MCG (1000 UT) capsule Active ibuprofen 800 MG tablet Take 1 tablet by mouth every 8 (eight) hours. 0 Active naproxen (Naprosyn) 250 MG tablet Take 1 tablet by mouth every 12 (twelve) hours. Active citalopram (CeleXA) 10 MG tablet Take 1 tablet by mouth at bed time. Active Immunizations Name Administration Dates Next Due Influenza injectable quadrivalent preservative f ree 10/06/2021 Social History Tobacco Use Types Packs/Day Years Used Date Smoking Tobacco: Never Smokeless Tobacco: Never Tobacco Cessation:Counseling Given: Not Answered Comments Unknown Sex and Gender Information Value Date Recorded Sex Assigned at Female 09/27/2022 10:14 AM EDT Legal Sex Female 10:14 AM EDT Gender Identity Female 09/27/2022 10:14 AM EDT Sexual Orientation Don't know 09/27/2022 10 :14 AM EDT Last Filed Vital Signs Vital Sign Reading Time Taken Comments Blood Pressure 132/88 12/06/2022 9:34 AM EST Pulse - - Temperature - - Respiratory Rate - - Oxygen Saturation - - Inhaled Oxygen Concentration - - Weight - - Height - - Body Mass Index - - Plan of Treatment Health Maintenance Due Date Last Done Comments Dental Oral Exam 1985 Dental Prophylaxis 1985 Dental X-Ray: Bitewings 1985 Dental X-Ray: Full Mouth 1985 Depression Screening 1985 HIV Screening 1985 SDOH Screening 1985 Alcohol/Substance Use Screening 1997 Family Planning (PISQ) 2000 Hepatitis C Screening 2003 DTaP/Tdap/Td Vaccines (1 - Tdap) 2004 Hepatitis B Vaccines (1 of 3 - 19+ 3-dose series) 2004 Pap Smear 2006 Cervical Cancer Screening 2015 HPV/Cotest 2015 Tobacco Screening 01/14/2024 01/14/2023 COVID-19 Vaccine ( - 2023-2 5 season) 2024 Influenza Vaccine (#1) 2024 10/06/2021 Zoster Vaccines (1 of 2) 2035 RSV Patients and Pa tients Aged 60 years or older (1 - 1-dose 75+ series) 2060 HIB Vaccines Aged Out No longer eligi ble based on patient's age to complete this topic HPV Vaccines Aged Out No longer eligi ble based on patient's age to complete this topic Hepatitis A Vaccines Aged Out No long er eligible based on patient's age to complete this topic IPV Vaccines Aged Out No longer eligi ble based on patient's age to complete this topic Meningococcal Vaccine Aged Out No daysi esther eligible based on patient's age to complete this topic Pneumococcal Vaccine: Pediat rics (0 to 5 Years) and At-Risk Patients (6 to 49) Years) Aged Out No longer elig ible based on patient's age to complete this topic RSV under 20 months Aged Out No longe r eligible based on patient's age to complete this topic Rotavirus Vaccines Aged Out No longer eligible based on patient's age to complete this topic Insurance [facility]
== END 2025-01-07 15:25 | disposition home or self-care (01) ==
PROVIDERS: PCP Internal Medicine
DX: Z00.00 Encounter for general adult medical examination without abnormal findings (principal); E11.65 Type 2 diabetes mellitus with hyperglycemia; F33.0 Major depressive disorder, recurrent, mild; E66.9 Obesity, unspecified; Z68.38 Body mass index [BMI] 38.0-38.9, adult; E78.5 Hyperlipidemia, unspecified; K75.81 Nonalcoholic steatohepatitis (NASH); G43.009 Migraine without aura, not intractable, without status migrainosus; F51.04 Psychophysiologic insomnia; E55.9 Vitamin D deficiency, unspecified; J32.9 Chronic sinusitis, unspecified

== ENCOUNTER → 2025-01-07 14:38 | Outpatient (BNVA) | payer OTHER, SELFPAY | PROVIDERS: PCP Internal Medicine | DX: Z00.00 Encounter for general adult medical examination without abnormal findings (principal); J32.9 Chronic sinusitis, unspecified; E55.9 Vitamin D deficiency, unspecified; F51.04 Psychophysiologic insomnia; E66.9 Obesity, unspecified; G43.009 Migraine without aura, not intractable, without status migrainosus; E11.65 Type 2 diabetes mellitus with hyperglycemia; F33.0 Major depressive disorder, recurrent, mild; E78.5 Hyperlipidemia, unspecified; K75.81 Nonalcoholic steatohepatitis (NASH) | CPT/HCPCS: 83036 ==

== ENCOUNTER 2025-01-09 14:39 | Outpatient (AMB) | payer OTHER, SELFPAY ==
--- NOTE | 2025-01-09 14:57 | MHC.PC.OV ---
Vital Signs 01/09/25 14:58 Height 4 ft 11 in Weight 186 lb 6.287 oz BMI 37.6 BP 120/82 Blood Pressure Location Lt brachial Position Sitting Intake Visit Reasons: 4 mnth follow up Intake Note: Patient here for a 4 month follow up [employer] Required: Yes [employer] Language: Train Control Technician Name: Genie Taylor MD Information Interpreted: non-clinical & clinical Accompanied by: Self / Same As Patient Allergies empagliflozin [From Jardiance] Allergy (Intermediate, Verified 01/09/25 15:17) frequency Urination tetracycline [Tetracycline] Allergy (Intermediate, Verified 01/09/25 15:17) SWELLING Medication List - Last Reconciled 01/09/25 by Genie Taylor MD [adult diapers briefs As directed] atorvastatin 40 mg PO BEDTIME 90 days blood sugar diagnostic (FreeStyle Test strips) Use 1 test strip once a day blood-glucose meter (FreeStyle [place] kit) As directed cholecalciferol (vitamin D3) 25 mcg PO DAILY citalopram 20 mg PO DAILY 90 days cyclobenzaprine 10 mg PO TID PRN fluticasone propionate 50 mcg/actuation (Flonase Allergy Relief) 1 spray intranasal BID lancets (FreeStyle Lancets) Use 1 lancet once a day lidocaine 5% 1 patch topical DAILY metformin 500 mg PO DAILY 90 days naproxen 375 mg PO BID PRN sitagliptin phosphate (Januvia) 25 mg PO DAILY trazodone 50 mg PO BEDTIME PRN 90 days underpads (Certainty Underpads) As directed Tobacco use date assessed: 01/07/25 Dental Screening Dental Screen Date: 01/07/25 HPI HPI Comments History of Present Illness Details The patient is a 39-year-old female presenting with Type 2 Diabetes Mellitus. She reported an increase in urinary frequency and a sensation of needing to urinate urgently, previously attributed to her medication regimen, particularly Jardiance. Recently, she has transitioned to Januvia, with noted improvement in symptoms without adverse effects thus far. The patient has been managing her diabetes with Metformin at a dosage reduced to once daily due to prior concerns with allergic reactions. She indicates previous twice-daily dosing exacerbated allergic responses. Additionally, she has been experiencing issues related to Hyperlipidemia, addressed through a regimen including Atorvastatin. The patient also manages Major Depressive Disorder with Citalopram and uses Trazodone for adjunctive treatment. She follows up on her wellness, with an upcoming mammography appointment and an LDL goal set under 70 mg/dL. She also has low vitamin-D on supplements. She has class 2 obesity with a BMI of 37.6 and was advised to diet and exercise to reach BMI goal less than 30. [facility] Medical History Transaminitis Mild recurrent major depression Diabetes mellitus Migraines Obese Insomnia Depression Impaired glucose tolerance Hypovitaminosis D Surgical History H/O colonoscopy Encounter for IUD removal H/O LEEP Family History Father Heart disease CVD (cardiovascular disease) Prostate cancer Mother Diabetes mellitus Maternal Grandmother No problems noted. Maternal Grandfather No problems noted. Paternal Grandmother No problems noted. Paternal Grandfather No problems noted. Son In good health Son In good health Sister In good health Brother No problems noted. Brother No problems noted. Brother No problems noted. Social History Household Members Other:: son Housing: Apartment Alcohol intake: never Patient Tobacco Use Status: Never used Tobacco e-Cigarette/Vaping Use: Never Used Second Hand Smoke Exposure: No service: No Current occupational status: unemployed and disabled Sexual orientation: Straight/Heterosexual Gender identity: Female Cognitive needs: No Hearing needs: No Vision needs: No Female Reproductive History Menstrual Age of Menarche: 12 Questionnaire Thrive Questionnaire Date Thrive assessed: 01/07/25 I am a: Patient What is your living situation today?: I choose not to answer this question Within the past 12 months, did the food you bought not last and you didn't have the money to get more?: Often true Within the past 12 months, did you worry whether your food would run out before you got money to buy more?: Often true Do you have trouble paying for medicines?: No Do you have trouble getting transportation to medical appointments?: No Do you have trouble paying your heating and electricity bill?: No Do you have trouble taking care of your child, family member or friend?: No Do you have trouble with day-to-day activities such as bathing, preparing meals, shopping, managing finances, etc.?: No Are you currently unemployed and looking for a job?: No Are you interested in more education?: No Please select the resources that you would like help with: Food Currently or been in a relationship where the following occur: I choose not to answer THRIVE Score: 2 DILLON-7 AMB Questionnaire DILLON-7 Date DILLON - 7 assessed: 01/07/25 Source: Developed by Drs. Aniket Magallanes, Tammie Patiño, Vitaliy Yu and colleagues, with an educational saira from [employer]. Review of Systems Const All systems reviewed & are unremarkable except as noted in HPI and below Card Denies chest pain at rest, Denies chest pain with activity, Denies edema, Denies irregular heart rhythm, Denies claudication, Denies dyspnea, Denies dyspnea on exertion, Denies orthopnea, Denies paroxysmal nocturnal dyspnea and Denies slow heart rate Resp Denies cough, Denies dyspnea and Denies dyspnea on exertion GI Denies abdominal pain, Denies change in bowel habits, Denies excessive flatus, Denies nausea and Denies vomiting Physical exam (Primary Care) Vital Signs: Last Vital Signs BP 120/82 01/09/25 14:58 BMI result Body Mass Index 37.6 BMI Assessment/Plan discussion: High BMI High, discussed plan: lifestyle, weight reduction, dietary and physical activity Tobacco/Smoking Status: Tobacco use Status Tobacco use date assessed 01/07/25 01/09/25 15:03 Patient Tobacco Use Status Never used Tobacco 01/09/25 15:03 Tobacco use type 11/16/22 15:17 e-Cigarette/Vaping Use Never Used 01/09/25 15:03 Thrive Assessment: Date of Thrive Assessment Date Thrive assessed 01/07/25 01/09/25 15:03 Currently or been in a relationship where the following occur: I choose not to answer Resp Effort & Inspection: normal respiratory effort Auscultation: clear to auscultation bilaterally Cardio Jugular venous distension: no JVD Rate: regular rate Rhythm: regular rhythm Heart sounds: S1 normal heart sound present and S2 normal heart sound present Extrem General: Yes full ROM Coding Level of Care Code Est Pt Level 4 (05540) Complex EM visit Add On G2211 Diagnoses Type 2 diabetes mellitus with hyperglycemia, without long-term current use of insulin E11.65 Diabetes mellitus type: type 2 Diabetes mellitus senior living insulin use: without senior living use Diabetes mellitus complication status: with hyperglycemia Mild recurrent major depression F33.0 Hyperlipidemia LDL goal <70 E78.5 Hypovitaminosis D E55.9 Time Spent (min) 21 Assessment & Plan Assessment & Plan (1) Diabetes mellitus: Comment: A1c increased from 6.4% (06/2023) to 7.2% 12/2023 Code(s): E11.9 - Type 2 diabetes mellitus without complications Category: Medical Qualifiers: Diabetes mellitus type: type 2 Diabetes mellitus senior living insulin use: without senior living use Diabetes mellitus complication status: with hyperglycemia Qualified Code(s): E11.65 - Type 2 diabetes mellitus with hyperglycemia (2) Mild recurrent major depression: Code(s): F33.0 - Major depressive disorder, recurrent, mild Category: Medical (3) Hyperlipidemia LDL goal <70: Code(s): E78.5 - Hyperlipidemia, unspecified Category: Medical (4) Hypovitaminosis D: Code(s): E55.9 - Vitamin D deficiency, unspecified Category: Medical Plan - Continue Januvia at 25 mg daily for Type 2 Diabetes Mellitus management. - Monitor blood glucose levels and adjust dosage if necessary, following improvement noted. - Repeat lipid panel in four months to assess management of Hyperlipidemia. - Continue Atorvastatin 40 mg for Hyperlipidemia and aim for LDL less than 70 mg/dL. - Follow scheduled mammography for breast cancer screening. - Supportive management for Major Depressive Disorder with Citalopram; continue supplementation with vitamins. Patient was informed and verbally consented to the use of an ambient scribe for clinic note documentation during this visit. I discussed with the patient her medication transition from Jardiance to Januvia and its current effectiveness in managing her urinary symptoms. We agreed to continue observing her response to Januvia, considering dosage adjustments based on her diabetes control. I emphasized the importance of monitoring lipid levels regularly and maintaining her LDL target to manage cardiovascular risk. We confirmed her upcoming mammography appointment, which aligns with appropriate cancer screening protocols. Additionally, I reinforced the significance of mental health management with her current treatment regimen, including Citalopram and recent resumption of vitamin intake. Continual dialogue about weight management and lifestyle modifications was encouraged. Orders: Orders Microalbumin, Random (w Creat) 4 Months R80.9 - Proteinuria, unspecified Vitamin D 25-OH Total 4 Months E55.9 - Vitamin D deficiency, unspecified Lipid Panel 4 Months E78.5 - Hyperlipidemia, unspecified Comprehensive [place]. Panel Fast 4 Months E11.65 - Type 2 diabetes mellitus with hyperglycemia Patient Instructions: - Take Januvia 25 mg once daily as prescribed. Monitor blood glucose levels regularly. - Maintain current medications and inform of any side effects. - Continue Citalopram as directed for depression and anxiety. - Keep the upcoming mammogram appointment. - Incorporate weight management strategies discussed and resume vitamin usage. - Attend follow-up appointment as scheduled.
[2025-01-09 14:58] VITALS: BP 120/82; BMI 37.6
--- OUTSIDE RECORDS SUMMARY | 2025-01-09 15:52 | XMS_ITS | Continuity of Care Document ---
Author Organization [place] - [facility], Allergy Address [address] [place] [phone] Care Team Providers Care Fourdrinier Operator Name Role Phone CAROLANN PEREIRA Primary Care Provider [phone] Assessment Encounter Date Assessment Date Assessment LastModified by Organization Details LastModified Time 12/28/2024 12/28/2024 Visit With: Manisha Rasheed Use of Antihistamine s: No If yes: Vial Test Change in medications: No If yes ? ? ? Increase in asthma symptoms No Asthma Hx If yes, inhaler use: Reaction to last injections: No If yes: ? ? ? Allergy Symptoms: Other: ? ? ? Missed: Dose Aware of Vial Test Notes:? ? ? [email or web address] Not available 12/28/2024 13:19:00 Plan of Treatment Reminders Order Date Submit Date Provider Last Modified By Organization Details Last Modified Time Details Appointments [facility]- Allergy f-up 6mon 2024 09:15A M RORY JO MD Not available Not available Not available Lab None recorded . Referral None recorded . Procedures None recorded . Surgeries None recorded . Imaging None recorded . Medication Orders None recorded . Patient TargetsNo targets recorded. Patient InstructionsNo instructions recorded. Reason for Referral None Reported. Problems Name Problem SNOMED Code Status Onset Date Resolution Date Notes Provider Name and Address Organization Details Recorded Time Allergic rhinitis 84503436 Active 023 [facility] 4 RORY JO MD [address] [address], [place], [address] 4 09:46:48 Perennial allergic rhinitis 133298501 Active 024 LYNNE VALLADARES [address] [address], [phone], [place] [facility] 15:10:16 Problem Notes None recorded. Procedures Surgical History Date Name Laterality Status Provider Name and Address Organization Details Recorded Time 01/04/20 25 Allergy Immunotherapy Injections completed LYNNE GONZALEZ [facility] [place] [address] [place] [address], [phone], [place] [facility] 01/04/2025 13:55:01 12/28/19 25 Allergy Immunotherapy Injections completed AURELIO JOHN RN [facility],[address], [address], [place] [facility] 12/28/2024 13:18:51 12/21/19 25 Allergy Immunotherapy Injections completed AURELIO JOHN RN [facility],[address], [address], [place] [facility] 01/09/2025 13:31:55 12/14/19 25 Allergy Immunotherapy Injections completed LYNNE GONZALEZ [facility],[place] [address] [place] [address], [address], [place] [facility] 12/14/2024 13:40:44 12/07/19 25 Allergy Immunotherapy Injections completed LYNNE VALLADARES [facility] [place] [address] [place] [address], [address], [place] [facility] 12/07/2024 13:07:37 11/30/19 25 Allergy Immunotherapy Injections completed LYNNE GONZALEZ [facility],[address], [address], [place] [facility] 11/30/2024 09:42:31 11/23/20 24 Allergy Immunotherapy Injections completed AURELIO JOHN RN [facility],[place] [address] [place] [address], [address], [place] [facility] 11/23/2024 10:42:45 11/16/20 24 Allergy Immunotherapy Injections completed AURELIO JOHN RN [facility],[place] [address] [place] [address], [address], [place] [facility] 11/16/2024 16:15:27 11/09/20 24 Allergy Immunotherapy Injections completed MANISHA RASHEED RMA [address], [place], [address], [place] [facility] 11/09/2024 13:24:10 11/02/20 24 Allergy Immunotherapy Injections completed LYNNE GONZALEZ [address], [place], [address], [place] [facility] 11/02/2024 13:09:40 10/24/20 24 Allergy Immunotherapy Injections completed AURELIO JOHN RN [address] [facility], [place], [address], [place] [facility] 10/24/2024 09:19:27 10/19/20 24 Allergy Immunotherapy Injections completed LYNNE GONZALEZ [address] [facility], [place], [address], [place] [facility] 10/19/2024 13:27:58 10/12/20 24 Allergy Immunotherapy Injections completed JEANIE COHEN RMA [address], [place], [address], [place] [facility] 10/12/2024 13:15:15 10/05/20 24 Allergy Immunotherapy Injections completed JEANIE COHEN RMA [address], [place], [address], [place] [facility] 10/05/2024 14:07:24 09/28/20 24 Allergy Immunotherapy Injections completed JEANIE COHEN RMA [address], [place], [address], [place] [facility] 09/28/2024 13:11:21 09/21/20 24 Allergy Immunotherapy Injections completed AURELIO JOHN RN [address] [facility] [address], [place], [address], [place] [facility] 09/21/2024 13:10:06 09/14/20 24 Allergy Immunotherapy Injections completed AURELIO JOHN RN [address], [place], [address], [place] [facility] 09/14/2024 13:32:46 09/07/20 24 Allergy Immunotherapy Injections completed JEANIE COHEN RMA [address], [place], [address], [place] [facility] 09/07/2024 13:20:23 08/31/20 24 Allergy Immunotherapy Injections completed WARREN GONZALEZA [address], [place], [address], [place] [facility] 08/31/2024 13:25:15 08/24/20 24 Allergy Immunotherapy Injections completed LYNNE GONZALEZ [address], [place], [address], [place] [facility] 08/24/2024 14:27:51 08/17/20 24 Allergy Immunotherapy Injections completed AURELIO JOHN RN [address] [facility] [address],[place] [address] [place] [address], [address], [place] [facility] 08/17/2024 13:14:10 08/10/20 24 Allergy Immunotherapy Injections completed LYNNE GONZALEZ [address] [facility] [address], [place], [address], [place] [facility] 08/10/2024 13:32:07 08/02/20 24 Allergy Immunotherapy Injections completed AURELIO JOHN RN [address] [facility] [address],[place] [place] [address], [address], [place] [facility] 08/02/2024 14:02:59 07/27/20 24 Allergy Immunotherapy Injections completed LYNNE VALLADARES [address], [place], [address], [place] [facility] 07/27/2024 13:30:48 07/20/20 24 Allergy Immunotherapy Injections completed LYNNE GONZALEZ [address], [place], [address], [place] [facility] 07/20/2024 13:04:29 07/13/20 24 Allergy Immunotherapy Injections completed AURELIO JOHN RN [address] [place] [address], [address], [place] [facility] 07/13/2024 13:55:03 07/06/20 24 Allergy Immunotherapy Injections completed WARREN GONZALEZA [address], [place], [address], [place] [facility] 07/06/2024 14:54:25 06/29/20 24 Allergy Immunotherapy Injections completed AURELIO JOHN RN [address], [place], [address], [place] [facility] 06/29/2024 14:42:23 06/22/20 24 Allergy Immunotherapy Injections completed JEANIE COHEN, RMA [address], [place], [address], [place] [facility] 06/22/2024 14:02:42 06/15/20 24 Allergy Immunotherapy Injections completed JEANIE COHEN, RMA [address], [place], [address], [place] [facility] 06/15/2024 14:20:31 06/08/20 24 Allergy Immunotherapy Injections completed JEANIE COHEN RMA [address] [place] [address], [address], [place] [facility] 06/08/2024 14:11:02 06/01/20 24 Allergy Immunotherapy Injections completed LYNNE GONZALEZ [address], [place], [address], [place] [facility] 06/01/2024 12:54:58 05/25/20 24 Allergy Immunotherapy Injections completed LYNNE GONZALEZ [address], [place], [address], [place] [facility] 05/25/2024 13:28:52 05/18/20 24 Allergy Immunotherapy Injections completed AURELIO JOHN RN [address] [facility] [address], [place], [address], [place] [facility] 05/18/2024 14:23:29 05/11/20 24 Allergy Immunotherapy Injections completed LYNNE GONZALEZ [address], [place], [address], [place] [facility] 05/11/2024 13:14:45 05/04/20 24 Allergy Immunotherapy Injections completed [facility] LU[facility] [place],[address], [address], [place] [facility] 05/04/2024 13:16:30 04/27/20 24 Allergy Immunotherapy Injections completed MANISHAYolande RASHEED, [facility] [address] [facility],[address] [address], [place], [address], [place] [facility] 04/27/2024 13:07:12 04/20/20 24 Allergy Immunotherapy Injections completed MANISHALAURENCE RASHEED, [facility] [address] [facility],[address] [address], [place], [address], [facility] - [facility] 04/20/2024 13:14:24 04/13/20 24 Allergy Immunotherapy Injections completed JEANIE LUKE, [facility] [address] [facility],[address], [address], [facility] - [facility] 04/13/2024 15:10:38 Imaging Results None recorded. Procedure Notes None recorded. Medical Equipment None Reported. Medications Name Sig Start Date Stop Date Status Note LastModified by Organization Details LastModified Time cyclobenza owen 10 mg tablet active Not Available Not Available No t Available atorvastat in 40 mg tablet TAKE 1 TABLET BY MOUTH AT BEDTIME active Not Available Not Available No t Available metformin 500 mg tablet TAKE 1 TABLET BY MOUTH EVERY DAY active Not Available Not Available No t Available naproxen 375 mg tablet active Medicatio n ID: [id number] and Name: naproxen Send Method: E-Prescri bed Subs Allowed: subs OK Medica tionGener icName: naproxen Not Available Not Available Not Available trazodone 50 mg tablet TAKE 1 TABLET BY MOUTH EVERY DAY AT BEDTIME NEEDED FOR SLEEP active Not Available Not Available No t Available naproxen 250 mg tablet active Not Available Not Available Not Available citalopram 20 mg tablet TAKE 1 TABLET BY MOUTH ONCE DAILY active Not Available Not Available No t Available epinephrin e 0.3 mg/0.3 mL injection, auto-injec tor INJECT INTRAMUSC ULARLY DIRECTED ON PACKAGE AND GO TO EMERGENCY ROOM active Not Available Not Available No t Available betamethas one dipropiona te 0.05 % lotion APPLY TOPICALLY TO SCALP TWICE DAILY NEEDED FOR FLARE. DECREASE WHEN SYMPTOMS IMPROVE active Not Available Not Available No t Available Vitamin D3 25 mcg (1,000 unit) capsule TAKE 1 CAPSULE BY MOUTH EVERY DAY active Not Available Not Available No t Available Jardiance 10 mg tablet TAKE 1 TABLET BY MOUTH EVERY DAY active Not Available Not Available No t Available Vitals None Recorded Social History None recorded. Functional Status None recorded. Mental Status None recorded. Family History Nothing Reported. Medical History No medical history recorded. Gynecological HistoryNo gynecological history recorded. Obstetrics History GPAL:G 0 P 0 0 0 0 Past Encounters Encounter ID Performer Location Encounter Start Date Encounter Closed Date Diagnosis/Indication Diagnosis SNOMED-CT Code Diagnosis ICD10 Code Diagnosis Note [id number] MANISHA RASHEED [facility] [address] [place] [address] 11/30/2024 08:49:59 11/30/2024 09:43:05 Perennial allergic rhinitis 953944652 J30.89 [id number] JEANIE LUKE [facility] [address] [place] [address] 12/07/2024 12:38:55 12/07/2024 13:08:04 Perennial allergic rhinitis 376114442 J30.89 [id number] [facility]HA ERICA [facility] [address] [place] [address] [address] [place] [address] 12/14/2024 12:46:29 12/14/2024 13:18:17 Perennial allergic rhinitis 617276134 J30.89 [id number] AURELIO JOHN RN Allergy [address] [place] [address] 100 [place] [address] 12/21/2024 12:56:31 12/21/2024 17:52:41 Perennial allergic rhinitis 452175957 J30.89 [id number] AURELIO JOHN RN Allergy [address] [place] [address] 100 [place] [address] 12/28/2024 12:49:18 12/28/2024 13:19:16 Perennial allergic rhinitis 630581473 J30.89 Health Concerns Section Related Observation LastModified by Organization Detai ls LastModified Time None Recorded Concern Status LastModified by Organization Details LastModified Time None Recorded Payers Encounter Date Sequence Insurance Name Policy Number Policy Siddiqui Covered Member ID Siddiqui Member ID Guarantor Name 12/28/2024 1 [facility] - DOS ON OR AFTER 2023 - MEDICARE [place]ANTAGE [place] (MEDICARE REPLACEMENT/ADV ANTAGE - PPO) Karyn Breaux [id number] Karyn Coates OBGyn Episode No OBEpisode recorded.
--- OUTSIDE RECORDS SUMMARY | 2025-01-09 15:52 | XMS_ITS | Continuity of Care Document ---
Author Organization [place] - [facility], Allergy Address [address] [place] [address] Care Team Providers Care Cork Tipper Name Role Phone CAROLANN PEREIRA Primary Care Provider Assessment Encounter Date Assessment Date Assessment LastModified by Organization Details LastModified Time 01/04/2025 01/04/2025 Visit With: Manisha Rasheed Use of Antihistamine s: No If yes: Vial Test Change in medications: No If yes ? ? ? Increase in asthma symptoms If yes, inhaler use: Reaction to last injections: Yes If yes: ? ? ?5mm Allergy Symptoms: Other: ? ? ? Missed: Dose Decreased Aware of Vial Test Notes:? ? ? [email or web address] Not available 01/04/2025 13:55:17 Plan of Treatment Reminders Order Date Submit Date Provider Last Modified By Organization Details Last Modified Time Details Appointments [facility]- Allergy f-up 6mon 2024 09:15A M RORY [...] Address Organization Details Recorded Time Allergic rhinitis 16089840 Active 023 SCIT 4 RORY JO MD [address] [place] [address], [address] [place] [facility] 09:46:48 Perennial allergic rhinitis 228847193 Active 024 LYNNE VALLADARES [address] [place], [address], [place] [facility] [place] 15:10:16 Problem Notes None recorded. Procedures Surgical History Date Name Laterality Status Provider Name and Address Organization Details Recorded Time 01/04/20 25 Allergy Immunotherapy Injections completed LYNNE [facility]ONZALEZ [facility] [place], [place], [address], [place] [facility] [place] 01/04/2025 13:55:01 12/28/19 25 Allergy Immunotherapy Injections completed AURELIO JOHN RN 100 [facility],[place] [address] [place] [address], [address], [place] [facility] [place] 12/28/2024 13:18:51 12/21/19 25 Allergy Immunotherapy Injections completed AURELIO JOHN RN 100 [facility],[place] [address] [place] [address], [address], [place] [facility] [place] 01/09/2025 13:31:55 12/14/19 25 Allergy Immunotherapy Injections completed LYNNE GONZALEZ 100 [facility],[place] [address] [place] [address], [address], [place] [facility] [place] 12/14/2024 13:40:44 12/07/19 25 Allergy Immunotherapy Injections completed LYNNE VALLADARES [address] [facility],[place] [address] [place] [address], [address], [place] [facility] [place] 12/07/2024 13:07:37 11/30/19 25 Allergy Immunotherapy Injections completed LYNNE GONZALEZ 100 [facility],[place] [address] [place] [address], [address], [place] [facility] [place] 11/30/2024 09:42:31 11/23/20 24 Allergy Immunotherapy Injections completed AURELIO JOHN RN 100 [facility],[place] [place] [address], [address], [place] [facility] [place] 11/23/2024 10:42:45 11/16/20 24 Allergy Immunotherapy Injections completed AURELIO JOHN RN 100 [facility],[address] [address] [place] [address], [address], [place] [facility] [place] 11/16/2024 16:15:27 11/09/20 24 Allergy Immunotherapy Injections completed MANISHA RASHEED RMA [address], [place], [address], [place] [facility] [place] 11/09/2024 13:24:10 11/02/20 24 Allergy Immunotherapy Injections completed LYNNE GONZALEZ [address], [place], [address], [place] [facility] [place] 11/02/2024 13:09:40 10/24/20 24 Allergy Immunotherapy Injections completed AURELIO JOHN RN [address] [facility],[place], [place], [address], [place] [facility] [place] 10/24/2024 09:19:27 10/19/20 24 Allergy Immunotherapy Injections completed LYNNE GONZALEZ [address] [facility],[place], [place], [address], [place] [facility] [place] 10/19/2024 13:27:58 10/12/20 24 Allergy Immunotherapy Injections completed JEANIE COHEN RMA [address],[place] [facility], [place], [address], [place] [facility] [place] 10/12/2024 13:15:15 10/05/20 24 Allergy Immunotherapy Injections completed JEANIE COHEN RMA [address],[place] [address] [place] [address], [address], [place] [facility] [place] 10/05/2024 14:07:24 09/28/20 24 Allergy Immunotherapy Injections completed JEANIE COHEN RMA [address],[place], [place], [address], [place] [facility] [place] 09/28/2024 13:11:21 09/21/20 24 Allergy Immunotherapy Injections completed AURELIO JOHN RN [address] [facility],[place] [address] [place] [address], [address], [place] [facility] [place] 09/21/2024 13:10:06 09/14/20 24 Allergy Immunotherapy Injections completed AURELIO JOHN RN [address], [place], [address], [place] [facility] 09/14/2024 13:32:46 09/07/20 24 Allergy Immunotherapy Injections completed JEANIE COHEN RMA [address],[place], [place], [address], [place] [facility] [place] 09/07/2024 13:20:23 08/31/20 24 Allergy Immunotherapy Injections completed WARREN GONZALEZA [address], [place], [address], [place] [facility] 08/31/2024 13:25:15 08/24/20 24 Allergy Immunotherapy Injections completed LYNNE GONZALEZ [address], [place], [address], [place] [facility] 08/24/2024 14:27:51 08/17/20 24 Allergy Immunotherapy Injections completed AURELIO JOHN RN [address] [facility] [address],[place] [address] [place] [address], [address], [place] [facility] [place] 08/17/2024 13:14:10 08/10/20 24 Allergy Immunotherapy Injections completed LYNNE GONZALEZ [address] [facility] [address],[place] [address] [place] [address], [address], [place] [facility] 08/10/2024 13:32:07 08/02/20 24 Allergy Immunotherapy Injections completed AURELIO JOHN RN [address] [facility] [address],[place] [address] [place] [address], [address], [place] [facility] [place] 08/02/2024 14:02:59 07/27/20 24 Allergy Immunotherapy Injections completed LYNNE VALLADARES [address],[place] [address], [place], [address], [place] [facility] 07/27/2024 13:30:48 07/20/20 24 Allergy Immunotherapy Injections completed WARREN GONZALEZA [address],[place], [place], [address], [place] [facility] [place] 07/20/2024 13:04:29 07/13/20 24 Allergy Immunotherapy Injections completed AURELIO JOHN RN [address],[place] [address] [place] [address], [address], [place] [facility] 07/13/2024 13:55:03 07/06/20 24 Allergy Immunotherapy Injections completed WARREN GONZALEZA [address], [place], [address], [place] [facility] [place] 07/06/2024 14:54:25 06/29/20 24 Allergy Immunotherapy Injections completed AURELIO JOHN RN [address],[place] [address], [place], [address], [place] [facility] 06/29/2024 14:42:23 06/22/20 24 Allergy Immunotherapy Injections completed JEANIE COHEN, RMA [address], [place], [address], [place] [facility] 06/22/2024 14:02:42 06/15/20 24 Allergy Immunotherapy Injections completed JEANIE COHEN, RMA [address], [place], [address], [place] [facility] [place] 06/15/2024 14:20:31 06/08/20 24 Allergy Immunotherapy Injections completed JEANIE COHEN RMA [address],[place] [address] [place] [address], [address], [place] [facility] [place] 06/08/2024 14:11:02 06/01/20 24 Allergy Immunotherapy Injections completed LYNNE GONZALEZ [address],[place], [place], [address], [place] [facility] [place] 06/01/2024 12:54:58 05/25/20 24 Allergy Immunotherapy Injections completed LYNNE GONZALEZ [address], [place], [address], [place] [facility] 05/25/2024 13:28:52 05/18/20 24 Allergy Immunotherapy Injections completed AURELIO JOHN RN [address] [facility] [address],[place] [address] [place] [address], [address], [place] [facility] [place] 05/18/2024 14:23:29 05/11/20 24 Allergy Immunotherapy Injections completed LYNNE GONZALEZ [address],[place] [address], [place], [address], [place] [facility] [place] 05/11/2024 13:14:45 05/04/20 24 Allergy Immunotherapy Injections completed JEANIE BUTLER, [facility] [address] [place],[address], [address], [facility] - [facility] 05/04/2024 13:16:30 04/27/20 24 Allergy Immunotherapy Injections completed MANISHA ERICA, [facility] 100 [facility],[place] [address], [place], [address], [facility] - [facility] 04/27/2024 13:07:12 04/20/20 24 Allergy Immunotherapy Injections completed MANISHALAURENCE RASHEED, [facility] 100 [facility] 100, [place], [address], [facility] - [facility] 04/20/2024 13:14:24 04/13/20 24 Allergy Immunotherapy Injections completed JEANIE LUKE, [facility] 100 [facility],[address], [address], [facility] - [facility] 04/13/2024 15:10:38 Imaging Results None recorded. [...] 375 mg tablet active Medicatio n ID: [id number] and Name: naproxen Send Method: E-Prescri bed [...] SNOMED-CT Code Diagnosis ICD10 Code Diagnosis Note [id number] JEANIE LUKELizandro, A Allergy [address] [place] [address] 12/07/2024 12:38:55 12/07/2024 13:08:04 Perennial allergic rhinitis 161703023 J30.89 02841 MANISHA RASHEED [facility] Allergy [address] [place] [address] 12/14/2024 12:46:29 12/14/2024 13:18:17 Perennial allergic rhinitis 296807685 J30.89 07476 AURELIO JOHN RN Allergy [address] [place] [address] 12/21/2024 12:56:31 12/21/2024 17:52:41 Perennial allergic rhinitis 105420865 J30.89 35912 AURELIO JOHN RN Allergy [address] [place] [address] 12/28/2024 12:49:18 12/28/2024 13:19:16 Perennial allergic rhinitis 952392992 J30.89 36580 MANISHA RASHEED [facility] Allergy [address] [place] [address] 01/04/2025 13:54:14 01/04/2025 13:55:34 Perennial allergic rhinitis 078797521 J30.89 Health Concerns Section Related Observation LastModified by Organization Detai ls LastModified Time None Recorded Concern Status LastModified by Organization Details LastModified Time None Recorded Payers Encounter Date Sequence Insurance Name Policy Number Policy Siddiqui Covered Member ID Siddiqui Member ID Guarantor Name 01/04/2025 1 [facility] - DOS ON OR AFTER 2023 - MEDICARE ADVANTAGE [place]PLACEMENT/ADV ANTAGE - PPO) Karyn Breaux [id number] Karyn Coates OBGyn Episode No OBEpisode recorded.
--- OUTSIDE RECORDS SUMMARY | 2025-01-09 15:52 | XMS_ITS | Continuity of Care Document ---
Author Organization [place] - [facility], Allergy Address [address] [place] [address] Care Team Providers Care Electronic Parts Designer Name Role Phone CAROLANN PEREIRA Primary Care Provider Assessment Encounter Date Assessment Date Assessment LastModified by Organization Details LastModified Time 12/21/2024 12/21/2024 Visit With: Aurelio John RN Use of Antihistamine s: No If yes: Vial Test Change in medications: No If yes ? ? ? Increase in asthma symptoms No Asthma Hx If yes, inhaler use: Reaction to last injections: No If yes: ? ? ? Allergy Symptoms: Other: ? ? ? Missed: Dose Aware of Vial Test Notes:? ? ? [email or web address] Not available 01/09/2025 13:32:05 Plan of Treatment Reminders Order Date Submit Date Provider Last Modified By Organization Details Last Modified Time Details Appointments [facility]- Allergy f-up 6mon 2024 09:15A M [...] Address Organization Details Recorded Time Allergic rhinitis 72804561 Active 023 SCIT 4 RORY JO MD [address], [address] [place] [facility] 4 09:46:48 Perennial allergic rhinitis 217044939 Active 024 LYNNE VALLADARES 100 [address] [place], [address], [place] [facility] [place] 15:10:16 Problem Notes None recorded. Procedures Surgical History Date Name Laterality Status Provider Name and Address Organization Details Recorded Time 01/04/20 25 Allergy Immunotherapy Injections completed LYNNE GONZALEZ [address] [facility] [address], [place], [address], [place] [facility] [place] 01/04/2025 13:55:01 12/28/19 25 Allergy Immunotherapy Injections completed AURELIO JOHN RN 100 [facility] [place] [address] [place] [address], [address], [place] [facility] [place] 12/28/2024 13:18:51 12/21/19 25 Allergy Immunotherapy Injections completed AURELIO JOHN RN 100 [facility] [place],[address], [address], [place] [facility] [place] 01/09/2025 13:31:55 12/14/19 25 Allergy Immunotherapy Injections completed LYNNE GONZALEZ 100 [facility] [place] [address] [place] [address], [address], [place] [facility] [place] 12/14/2024 13:40:44 12/07/19 25 Allergy Immunotherapy Injections completed LYNNE VALLADARES [address] [facility] [address],[place] [address] [place] [address], [address], [place] [facility] [place] 12/07/2024 13:07:37 11/30/19 25 Allergy Immunotherapy Injections completed LYNNE GONZALEZ 100 [facility] [place] [address] [place] [address], [address], [place] [facility] [place] 11/30/2024 09:42:31 11/23/20 24 Allergy Immunotherapy Injections completed AURELIO JOHN RN 100 [facility] [place] [address] [place] [address], [address], [place] [facility] [place] 11/23/2024 10:42:45 11/16/20 24 Allergy Immunotherapy Injections completed AURELIO JOHN RN 100 [facility] [place] [address], [place], [address], [place] [facility] [place] 11/16/2024 16:15:27 11/09/20 24 Allergy Immunotherapy Injections completed FELIX MALDONADO RMA [address], [place], [address], [place] [facility] [place] 11/09/2024 13:24:10 11/02/20 24 Allergy Immunotherapy Injections completed FELIX MALDONADO RMA [address],[place] [address], [place], [address], [place] [facility] [place] 11/02/2024 13:09:40 10/24/20 24 Allergy Immunotherapy Injections completed AURELIO JOHN RN [address], [place], [address], [place] [facility] [place] 10/24/2024 09:19:27 10/19/20 24 Allergy Immunotherapy Injections completed LYNNE GONZALEZ [address], [place], [address], [place] [facility] [place] 10/19/2024 13:27:58 10/12/20 24 Allergy Immunotherapy Injections completed JEANIE COHEN RMA [address], [place], [address], [place] [facility] [place] 10/12/2024 13:15:15 10/05/20 24 Allergy Immunotherapy Injections completed JEANIE COHEN RMA [address],[place] [address] [place] [address], [address], [place] [facility] [place] 10/05/2024 14:07:24 09/28/20 24 Allergy Immunotherapy Injections completed JEANIE COHEN RMA [address],[place] [address], [place], [address], [place] [facility] [place] 09/28/2024 13:11:21 09/21/20 24 Allergy Immunotherapy Injections completed AURELIO JOHN RN [address] [facility] [address],[place] [place] [address], [address], [place] [facility] [place] 09/21/2024 13:10:06 09/14/20 24 Allergy Immunotherapy Injections completed AURELIO JOHN RN [address],[place] [address] [place] [address], [address], [place] [facility] [place] 09/14/2024 13:32:46 09/07/20 24 Allergy Immunotherapy Injections completed JEANIE COHEN RMA [address], [place], [address], [place] [facility] [place] 09/07/2024 13:20:23 08/31/20 24 Allergy Immunotherapy Injections completed WARREN GONZALEZA [address], [place], [address], [place] [facility] [place] 08/31/2024 13:25:15 08/24/20 24 Allergy Immunotherapy Injections completed LYNNE GONZALEZ [address], [place], [address], [place] [facility] [place] 08/24/2024 14:27:51 08/17/20 24 Allergy Immunotherapy Injections completed AURELIO JOHN RN [address] [facility] [address],[place] [place] [address], [address], [place] [facility] [place] 08/17/2024 13:14:10 08/10/20 24 Allergy Immunotherapy Injections completed LYNNE GONZALEZ [address] [facility] [address],[place] [address] [place] [address], [address], [place] [facility] [place] 08/10/2024 13:32:07 08/02/20 24 Allergy Immunotherapy Injections completed AURELIO JOHN RN [address] [facility] [address],[place] [place] [address], [address], [place] [facility] [place] 08/02/2024 14:02:59 07/27/20 24 Allergy Immunotherapy Injections completed LYNNE VALLADARES [address], [place], [address], [place] [facility] [place] 07/27/2024 13:30:48 07/20/20 24 Allergy Immunotherapy Injections completed WARREN GONZALEZA [address],[place] [address], [place], [address], [place] [facility] [place] 07/20/2024 13:04:29 07/13/20 24 Allergy Immunotherapy Injections completed AURELIO JOHN RN [address],[place], [place], [address], [place] [facility] [place] 07/13/2024 13:55:03 07/06/20 24 Allergy Immunotherapy Injections completed LYNNE GONZALEZ [address], [place], [address], [place] [facility] [place] 07/06/2024 14:54:25 06/29/20 24 Allergy Immunotherapy Injections completed AURELIO JOHN RN [address], [place], [address], [place] [facility] [place] 06/29/2024 14:42:23 06/22/20 24 Allergy Immunotherapy Injections completed JEANIE COHEN, RMA [address], [place], [address], [place] [facility] [place] 06/22/2024 14:02:42 06/15/20 24 Allergy Immunotherapy Injections completed JEANIE COHEN, RMA [address], [place], [address], [place] [facility] [place] 06/15/2024 14:20:31 06/08/20 24 Allergy Immunotherapy Injections completed JEANIE COHEN RMA [address], [place], [address], [place] [facility] [place] 06/08/2024 14:11:02 06/01/20 24 Allergy Immunotherapy Injections completed LYNNE GONZALEZ [address],[place], [place], [address], [place] [facility] [place] 06/01/2024 12:54:58 05/25/20 24 Allergy Immunotherapy Injections completed LYNNE GONZALEZ [address], [place], [address], [place] [facility] [place] 05/25/2024 13:28:52 05/18/20 24 Allergy Immunotherapy Injections completed AURELIO JOHN RN [address] [facility] [address] [place] [address], [address], [place] [facility] [place] 05/18/2024 14:23:29 05/11/20 24 Allergy Immunotherapy Injections completed LYNNE GONZALEZ [address], [place], [address], [place] [facility] 05/11/2024 13:14:45 05/04/20 24 Allergy Immunotherapy Injections completed JEANIE BUTLER, [facility] 100 [facility] [place],[address], [address], [facility] - [facility] 05/04/2024 13:16:30 04/27/20 24 Allergy Immunotherapy Injections completed FELIX ERICA [facility] 100 [facility],[address], [address], [facility] - [facility] 04/27/2024 13:07:12 04/20/20 24 Allergy Immunotherapy Injections completed FELIXLAURENCE MALDONADO, [facility] 100 [facility],[address], [address], [facility] - [facility] 04/20/2024 13:14:24 04/13/20 24 Allergy Immunotherapy Injections completed JEANIE LUKE, [facility] 100 [facility],[address], [address], [facility] - [facility] 04/13/2024 15:10:38 Imaging Results None recorded. Procedure [...] 375 mg tablet active Medicatio n ID: [id number] and Name: naproxen Send Method: E-Prescri bed [...] SNOMED-CT Code Diagnosis ICD10 Code Diagnosis Note [id number] AURELIO JOHN RN Allergy [address] [place] [address] 11/23/2024 09:01:47 11/23/2024 10:43:09 Perennial allergic rhinitis [id number] J30.89 72450 FELIX MALDONADO [facility] Allergy [address] [place] [address] 11/30/2024 08:49:59 11/30/2024 09:43:05 Perennial allergic rhinitis [id number] J30.89 79165 JEANIE LUKE [facility] Allergy [address] [place] [address] 100 [place] [address] 12/07/2024 12:38:55 12/07/2024 13:08:04 Perennial allergic rhinitis 479541660 J30.89 71208 FELIX MALDONADO [facility] Allergy [address] [place] [address] 12/14/2024 12:46:29 12/14/2024 13:18:17 Perennial allergic rhinitis [id number] J30.89 57569 AURELIO JOHN RN Allergy [address] [place] [address] 12/21/2024 12:56:31 12/21/2024 17:52:41 Perennial allergic rhinitis 351123143 J30.89 Health Concerns Section Related Observation LastModified by Organization Dethalle ls LastModified Time None Recorded Concern Status LastModified by Organization Details LastModified Time None Recorded Payers Encounter Date Sequence Insurance Name Policy Number Policy Siddiqui Covered Member ID Siddiqui Member ID Guarantor Name 12/21/2024 1 [facility] - DOS ON OR AFTER 2023 - MED[place]ARE [place]/ADV ANTAGE - PPO) Karyn Breaux [id number] Karyn Coates OBGyn Episode No OBEpisode recorded.
--- OUTSIDE RECORDS SUMMARY | 2025-01-09 15:52 | XMS_ITS | Data Portability ---
Author Organization [place] - [facility], Allergy Address [address] [place] [id number] Care Team Providers Care Automatic Presser Name Role Phone CAROLANN PEREIRA Primary Care Provider Assessment Encounter Date Assessment Date Assessment LastModified by Organization Details LastModified Time 12/07/2024 12/07/2024 Visit With: LYNNE Canela Use of Antihistamine s: No If yes: Vial Test Change in medications: No If yes ? ? ? Increase in asthma symptoms If yes, inhaler use: Reaction to last injections: No If yes: ? ? ? Allergy Symptoms: Other: ? ? ? Missed: Dose Aware of Vial Test Notes:? ? ? [email or web address] Not available 12/07/2024 13:07:42 12/14/2024 12/14/2024 Visit With: LYNNE Canela Use of Antihistamine s: No If yes: Vial Test Change in medications: No If yes ? ? ? Increase in asthma symptoms No Asthma Hx If yes, inhaler use: Reaction to last injections: No If yes: ? ? ? Allergy Symptoms: Other: ? ? ? Missed: Dose Aware of Vial Test Notes:? ? ? [email or web address] Not available 12/14/2024 13:41:10 12/21/2024 12/21/2024 Visit With: Aurelio John RN [...] ? ? [email or web address] Not available 01/09/2025 13:32:05 12/28/2024 12/28/2024 Visit With: Manihsa Rasheed Use of Antihistamine s: No If yes: Vial Test Change in medications: No If yes ? ? ? Increase in asthma symptoms No Asthma Hx If yes, inhaler use: Reaction to last injections: No If yes: ? ? ? Allergy Symptoms: Other: ? ? ? Missed: Dose Aware of Vial Test Notes:? ? ? [email or web address] Not available 12/28/2024 13:19:00 01/04/2025 01/04/2025 Visit With: Manisha Rasheed Use of Antihistamine s: No If yes: Vial Test Change in medications: No If yes ? ? ? Increase in asthma symptoms If yes, inhaler use: Reaction to last injections: Yes If yes: ? ? ?5mm Allergy Symptoms: Other: ? ? ? Missed: Dose Decreased Aware of Vial Test Notes:? ? ? [email or web address] Not available 01/04/2025 13:55:17 Plan of Treatment Reminders Order Date Submit Date Provider Last Modified By Organization Details Last Modified Time Details Appointments [facility]- Allergy f-up 6mon 2024 09:15A M [...] Address Organization Details Recorded Time Allergic rhinitis 86952803 Active 023 SCIT 4 RORY JO MD [address] [place], [address], [facility] - [facility] 4 09:46:48 Perennial allergic rhinitis [id number] Active 024 JEANIE COHEN [address] [place], [address], [facility] - [facility] 4 15:10:16 Problem Notes None recorded. Procedures Surgical History Date Name Laterality Status Provider Name and Address Organization Details Recorded Time 01/04/20 25 Allergy Immunotherapy Injections completed LYNNE GONZALEZ [address] [place], [place] [address], [address], [place] - [facility] 01/04/2025 13:55:01 12/28/19 25 Allergy Immunotherapy Injections completed AURELIO JOHN RN [address],[place] [address] [place] [address], [address], [place] [facility] 12/28/2024 13:18:51 12/21/19 25 Allergy Immunotherapy Injections completed AURELIO JOHN RN 100 [facility] [place] [address], [address], [place] [facility] 01/09/2025 13:31:55 12/14/19 25 Allergy Immunotherapy Injections completed LYNNE GONZALEZ 100 [facility] [place] [address] [place] [address], [address], [place] [facility] 12/14/2024 13:40:44 12/07/19 25 Allergy Immunotherapy Injections completed LYNNE CANELA 100 [facility] [place] [address] [place] [address], [address], [place] [facility] 12/07/2024 13:07:37 11/30/19 25 Allergy Immunotherapy Injections completed LYNNE GONZALEZ [address],[place] [address] [place] [address], [address], [place] [facility] 11/30/2024 09:42:31 11/23/20 24 Allergy Immunotherapy Injections completed AURELIO JOHN RN 100 [facility] [place] [address] [place] [address], [address], [place] [facility] 11/23/2024 10:42:45 11/16/20 24 Allergy Immunotherapy Injections completed AURELIO JOHN RN [address],[place] [address] [place] [address], [address], [place] [facility] 11/16/2024 16:15:27 11/09/20 24 Allergy Immunotherapy Injections completed LYNNE GONZALEZ [address] [facility] [place] [address], [address], [place] [facility] 11/09/2024 13:24:10 11/02/20 24 Allergy Immunotherapy Injections completed LYNNE GONZALEZ [address],[place] [address], [address], [place] [facility] 11/02/2024 13:09:40 10/24/20 24 Allergy Immunotherapy Injections completed AURELIO JOHN RN [address],[place] [address], [address], [place] [facility] 10/24/2024 09:19:27 10/19/20 24 Allergy Immunotherapy Injections completed LYNNE GONZALEZ [address],[place] [address], [address], [place] [facility] 10/19/2024 13:27:58 10/12/20 24 Allergy Immunotherapy Injections completed LYNNE CANELA [address],[place] [address], [address], [place] [facility] 10/12/2024 13:15:15 10/05/20 24 Allergy Immunotherapy Injections completed LYNNE CANELA [address],[place] [address] [place] [address], [address], [place] [facility] 10/05/2024 14:07:24 09/28/20 24 Allergy Immunotherapy Injections completed LYNNE CANELA [address],[place] [address] [place] [address], [address], [place] [facility] 09/28/2024 13:11:21 09/21/20 24 Allergy Immunotherapy Injections completed AURELIO JOHN RN [address],PA[place] [address] [place] [address], [address], [facility] - [facility] 09/21/2024 13:10:06 09/14/20 24 Allergy Immunotherapy Injections completed AURELIO JOHN RN [address],[place] [address] [place] [address], [address], [place] [facility] 09/14/2024 13:32:46 09/07/20 24 Allergy Immunotherapy Injections completed LYNNE CANELA [address],[place] [address], [address], [place] [facility] 09/07/2024 13:20:23 08/31/20 24 Allergy Immunotherapy Injections completed LYNNE GONZALEZ [address], [place], [address], [place] [facility] 08/31/2024 13:25:15 08/24/20 24 Allergy Immunotherapy Injections completed LYNNE GONZALEZ [address], [place], [address], [place] [facility] 08/24/2024 14:27:51 08/17/20 24 Allergy Immunotherapy Injections completed AURELIO JOHN RN [address],[place] [address], [address], [place] [facility] 08/17/2024 13:14:10 08/10/20 24 Allergy Immunotherapy Injections completed LYNNE GONZALEZ [address],[place] [address], [address], [place] [facility] 08/10/2024 13:32:07 08/02/20 24 Allergy Immunotherapy Injections completed AURELIO JOHN RN [address],[place] [place] [address], [address], [place] [facility] 08/02/2024 14:02:59 07/27/20 24 Allergy Immunotherapy Injections completed LYNNE CANELA [address],[place] [address], [address], [place] [facility] 07/27/2024 13:30:48 07/20/20 24 Allergy Immunotherapy Injections completed LYNNE GONZALEZ [address],[place] [address], [address], [place] [facility] 07/20/2024 13:04:29 07/13/20 24 Allergy Immunotherapy Injections completed AURELIO JOHN RN [address],[place] [place] [address], [address], [place] [facility] 07/13/2024 13:55:03 07/06/20 24 Allergy Immunotherapy Injections completed LYNNE GONZALEZ [address],[place] [address], [address], [place] [facility] 07/06/2024 14:54:25 06/29/20 24 Allergy Immunotherapy Injections completed AURELIO JOHN RN [address], [place], [address], [place] [facility] 06/29/2024 14:42:23 06/22/20 24 Allergy Immunotherapy Injections completed JEANIE COHEN, RMA [address], [place], [address], [place] [facility] 06/22/2024 14:02:42 06/15/20 24 Allergy Immunotherapy Injections completed JEANIE COHEN, RMA [address], [place], [address], [place] [facility] 06/15/2024 14:20:31 06/08/20 24 Allergy Immunotherapy Injections completed JEANIE COHEN, RMA [address], [place], [address], [place] [facility] 06/08/2024 14:11:02 06/01/20 24 Allergy Immunotherapy Injections completed LYNNE GONZALEZ [address], [place], [address], [place] [facility] 06/01/2024 12:54:58 05/25/20 24 Allergy Immunotherapy Injections completed LYNNE GONZALEZ [address], [place], [address], [place] [facility] 05/25/2024 13:28:52 05/18/20 24 Allergy Immunotherapy Injections completed AURELIO JOHN RN [address],[place] [address], [address], [place] [facility] 05/18/2024 14:23:29 05/11/20 24 Allergy Immunotherapy Injections completed LYNNE GONZALEZ [address], [place], [address], [place] [facility] 05/11/2024 13:14:45 05/04/20 24 Allergy Immunotherapy Injections completed JEANIE COHEN, RMA [address], [place], [address], [place] [facility] 05/04/2024 13:16:30 04/27/20 24 Allergy Immunotherapy Injections completed MANISHA RASHEED, RMA [address] [place],[address], [place], [address], [facility] - [facility] 04/27/2024 13:07:12 04/20/20 24 Allergy Immunotherapy Injections completed MANISHA RASHEED RMA [address], [place], [address], [facility] - [facility] 04/20/2024 13:14:24 04/13/20 24 Allergy Immunotherapy Injections completed JEANIE COHEN, RMA [address], [place], [address], [facility] - [facility] 04/13/2024 15:10:38 Imaging Results None recorded. [...] 375 mg tablet active Medicatio n ID: [id number] Br and Name: naproxen Send Method: E-Prescri bed [...] SNOMED-CT Code Diagnosis ICD10 Code Diagnosis Note 745 RORY JO MD Allergy [address] [place] [address] it 100 [facility] [place] [address] 04/13/2024 13:49:07 04/16/2024 15:28:43 Perennial allergic rhinitis [id number] J30.89 1501 MANISHA RASHEED [facility] Allergy [address] [place] [address] it 100 [facility] [place] [address] 04/20/2024 13:13:03 04/20/2024 13:35:44 Perennial allergic rhinitis [id number] J30.89 2264 MANISHA RASHEED [facility] Allergy [address] [place] [address] it 100 [facility] [place] [address] 04/27/2024 12:48:04 04/27/2024 15:21:46 Perennial allergic rhinitis [id number] J30.89 3272 [facility] Allergy [address] [place] [address] ite 100 [place] [address] 05/04/2024 12:59:34 05/04/2024 14:52:12 Perennial allergic rhinitis [id number] J30.89 4131 MANISHA RASHEED [facility] Allergy [address] [place] [address] ite 100 [place] [address] 05/11/2024 13:13:42 05/11/2024 15:25:07 Perennial allergic rhinitis [id number] J30.89 5163 AURELIO JOHN RN Allergy [address] [place] [address] ite [address] [place] [address] 05/18/2024 14:22:33 05/18/2024 15:08:07 Perennial allergic rhinitis [id number] J30.89 6046 MANISHA RASHEED [facility] Allergy [address] [place] [address] ite 100 [facility] [place] [address] 05/25/2024 13:27:13 05/25/2024 13:41:45 Perennial allergic rhinitis 994500400 J30.89 6663 MANISHA RASHEED A Allergy [address] [place] [address],Jean Baptiste ite [address] [place] [address] 06/01/2024 12:48:05 06/01/2024 15:33:30 Perennial allergic rhinitis [id number] J30.89 7722 [facility], RMA Allergy 100 [facility],Jean Baptiste ite [address] [place] [address] 06/08/2024 12:47:14 06/08/2024 14:32:12 Perennial allergic rhinitis [id number] J30.89 8744 [facility], RMA Allergy [address] [place] [address],Jean Baptiste ite [address] [place] [address] 06/15/2024 12:51:49 06/25/2024 11:20:18 Perennial allergic rhinitis [id number] J30.89 [facility]1 [facility] [address] [place] [address], ite [address] [place] [address] 06/22/2024 13:00:09 06/22/2024 14:03:34 Perennial allergic rhinitis [id number] J30.89 21181 AURELIO JOHN RN Allergy [address] [place] [address] ite [address] [place] [address] 06/29/2024 12:54:25 06/29/2024 14:42:43 Perennial allergic rhinitis 157412387 J30.89 80009 MANISHA RASHEED A Allergy [address] [place] [address],Jean Baptiste ite [address] [place] [address] 07/06/2024 12:47:38 07/06/2024 15:05:42 Perennial allergic rhinitis [id number] J30.89 [id number] AURELIO JOHN RN Allergy [address] [place] [address],Jean Baptiste ite [address] [place] [address] 07/13/2024 12:54:46 07/13/2024 13:55:58 Perennial allergic rhinitis [id number] J30.89 [id number] MANISHA RASHEED [facility] Allergy [address] [place] [address],Jean Baptiste ite [address] [place] [address] 07/20/2024 12:49:49 07/20/2024 13:45:01 Perennial allergic rhinitis [id number] J30.89 53148 JEANIE BUTLER, A Allergy [address] [place] [address] 100 [place] [address] 07/27/2024 12:47:02 07/27/2024 13:31:34 Perennial allergic rhinitis [id number] J30.89 [id number] RORY JO MD [facility] [address] [place] [address] 08/02/2024 09:12:21 08/02/2024 09:44:01 Allergic rhinitis 33163740 J30.89 [id number] AURELIO JOHN RN Allergy [address] [place] [address] 100 [facility] [place] [address] 08/02/2024 14:01:50 08/02/2024 14:03:28 Perennial allergic rhinitis [id number] J30.89 [id number] MANISHA RASHEED [facility] Allergy [address] [place] [address] 100 [facility] [place] [address] 08/10/2024 12:50:22 08/10/2024 14:36:29 Perennial allergic rhinitis [id number] J30.89 [id number] AURELIO JOHN RN Allergy [address] [place] [address], [place] [address] 08/17/2024 12:50:42 08/17/2024 13:14:39 Perennial allergic rhinitis 598822238 J30.89 [id number] MANISHA RASHEED [facility] Allergy [address] [place] [address] 100 [facility] [place] [address] 08/24/2024 12:50:49 09/03/2024 16:56:32 Perennial allergic rhinitis [id number] J30.89 [id number] MANISHA RASHEED [facility] Allergy [address] [place] [address] 100 [facility] [place] [address] 08/31/2024 12:58:59 08/31/2024 13:43:15 Perennial allergic rhinitis [id number] J30.89 14809 JEANIE LUKE, [facility] Allergy [address] [place] [address] 100 [facility] [place] [address] 09/07/2024 12:43:37 09/07/2024 13:21:11 Perennial allergic rhinitis [id number] J30.89 [id number] AURELIO JOHN RN Allergy [address] [place] [address],Jean Baptiste ite [address] [place] [address] 09/14/2024 12:51:56 09/14/2024 13:33:06 Perennial allergic rhinitis [id number] J30.89 31855 AURELIO JOHN RN Allergy [address] [place] [address], ite [address] [place] [address] 09/21/2024 12:55:36 09/21/2024 13:10:35 Perennial allergic rhinitis [id number] J30.89 [id number] JEANIE LUKE, [facility] Allergy [address] [place] [address], ite [address] [place] [address] 09/28/2024 12:56:44 09/28/2024 13:11:53 Perennial allergic rhinitis [id number] J30.89 48088 [facility] All[facility] [address] [place] [address], ite [address] [place] [address] 10/05/2024 12:49:27 10/05/2024 14:07:55 Perennial allergic rhinitis [id number] J30.89 [id number] [facility] All[facility] [address] [place] [address], ite [address] [place] [address] 10/12/2024 12:37:30 10/12/2024 13:16:02 Perennial allergic rhinitis [id number] J30.89 [id number] MANISHA RASHEED [facility] Allergy [address] [place] [address],Jean Baptiste it[address] [place] [address] 10/19/2024 12:51:28 10/19/2024 13:35:48 Perennial allergic rhinitis [id number] J30.89 53946 AURELIO JOHN RN Allergy [address] [place] [address],Jean Baptiste it[address] [place] [address] 10/24/2024 08:48:01 10/24/2024 09:20:42 Perennial allergic rhinitis [id number] J30.89 [id number] MANISHA RASHEED [facility] Allergy [address] [place] [address],Jean Baptiste it[address] [place] [address] 11/02/2024 12:35:48 11/02/2024 13:11:03 Perennial allergic rhinitis [id number] J30.89 [id number] MANISHA RASHEED, [facility] Allergy [address] [place], [place] [address]Jean [place]iste ite [address] [place] [address] 11/09/2024 13:22:54 11/09/2024 13:32:50 Perennial allergic rhinitis [id number] J30.89 32758 AURELIO JOHN RN Allergy [address] [place] [address] ite [address] [place] [address] 11/16/2024 12:45:31 11/16/2024 16:16:04 Perennial allergic rhinitis [id number] J30.89 48972 AURELIO JOHN RN Allergy [address] [place] [address] ite [address] [place] [address] 11/23/2024 09:01:47 11/23/2024 10:43:09 Perennial allergic rhinitis [id number] J30.89 [id number] MANISHA RASHEED, [facility] Allergy [address] [place] [address] ite [address] [place] [address] 11/30/2024 08:49:59 11/30/2024 09:43:05 Perennial allergic rhinitis [id number] J30.89 79602 [facility], [facility] Allergy [address] [place] [address], ite [address] [place] [address] 12/07/2024 12:38:55 12/07/2024 13:08:04 Perennial allergic rhinitis [id number] J30.89 15457 MANISHA ERICA, [facility] Allergy [address] [place] [address] ite [address] [place] [address] 12/14/2024 12:46:29 12/14/2024 13:18:17 Perennial allergic rhinitis [id number] J30.89 06755 AURELIO JOHN RN Allergy [address] [place] [address] ite [address] [place] [address] 12/21/2024 12:56:31 12/21/2024 17:52:41 Perennial allergic rhinitis 709004125 J30.89 [id number] AURELIO JOHN RN Allergy [address] [place] [address] ite [address] [place] [address] 12/28/2024 12:49:18 12/28/2024 13:19:16 Perennial allergic rhinitis [id number] J30.89 [id number] LYNNE GONZALEZ Allergy [address] [place] [address] 100 [facility] [place] [address] 01/04/2025 13:54:14 01/04/2025 13:55:34 Perennial allergic rhinitis [id number] J30.89 Health Concerns Section Related Observation LastModified by Organization Detai ls LastModified Time None Recorded Concern Status LastModified by Organization Details LastModified Time None Recorded Advance Directives Directive None Recorded Payers Encounter Date Sequence Insurance Name Policy Number Policy Siddiqui Covered Member ID Siddiqui Member ID Guarantor Name 12/07/2024 1 [employer] - DOS ON OR AFTER 2023 - MEDICARE [place]V ANTAGE - PPO) Karyn S Saeid [id number] Karyn Saeid [place] 12/14/2024 1 [employer] - DOS ON OR AFTER 2023 - [place] - [place]PO) Karyn S Saeid [id number] Karyn Saeid [place] 12/21/2024 1 [employer] - DOS ON OR AFTER 2023 - [place] - [place]PO) Karyn S Saeid [id number] Karyn Saeid [place] 12/28/2024 1 [employer] - DOS ON OR AFTER 2023 - [place]V [place] - PPO) Karyn S Saeid [id number] Karyn Saeid [place] 01/04/2025 1 [employer] - DOS ON OR AFTER 2023 - [place]V ANT[place] - PPO) Karyn S Saeid [id number] Karyn Saeid Jaxon OBGyn Episode No OBEpisode recorded.
--- OUTSIDE RECORDS SUMMARY | 2025-01-09 15:52 | XMS_ITS | Encounter Summary ---
Author Organization [employer] [facility] Address [address] [place] [address] Care Team Providers Care Area Supervisor Name Role Phone Unavailable Primary Care Provider [...]
--- OUTSIDE RECORDS SUMMARY | 2025-01-09 15:52 | XMS_ITS | Clinical Summary ---
Author Organization [employer] Address [address] [place] [address] Care Team Providers Care Fish Hatchery Man Name Role Phone Unavailable Primary Care Provider [...] patient's age to complete this topic Insurance [facility]
--- OUTSIDE RECORDS SUMMARY | 2025-01-09 15:52 | XMS_ITS | Encounter Summary ---
Author Organization [employer] [facility] Address [address] [place] [address] Care Team Providers Care Environmental Services Aide Name Role Phone Unavailable Primary Care Provider Unavailabl e Encounter Details Date Type Department Care Team (Late st Contact Info) Description 11/09/2022 Abstract [facility] [address] [place] [address] Allison Cordero DDS [address] [place] [address] Social History Tobacco Use Types Packs/Day Years [...]
--- OUTSIDE RECORDS SUMMARY | 2025-01-09 15:52 | XMS_ITS | Encounter Summary ---
Author Organization [employer] [facility] Address [address] [place] [address] Care Team Providers Care House Director Name Role Phone Unavailable Primary Care Provider [...]
--- OUTSIDE RECORDS SUMMARY | 2025-01-09 15:52 | XMS_ITS | Continuity of Care Document ---
Author Organization [place] [facility], Allergy Address [address] [place] [address] Care Team Providers Care Project Program Manager Name Role Phone CAROLANN PEREIRA Primary Care Provider [phone] Assessment Encounter Date Assessment Date Assessment LastModified by Organization Details LastModified Time 12/14/2024 12/14/2024 Visit With: LYNNE Canela Use of Antihistamine s: No If yes: Vial Test Change in medications: No If yes ? ? ? Increase in asthma symptoms No Asthma Hx If yes, inhaler use: Reaction to last injections: No If yes: ? ? ? Allergy Symptoms: Other: ? ? ? Missed: Dose Aware of Vial Test Notes:? ? ? [email or web address] Not available 12/14/2024 13:41:10 Plan of Treatment Reminders Order Date Submit Date Provider Last Modified By Organization Details Last Modified Time Details Appointments [facility]- Allergy f-up 6mon 2024 09:15A [...] Address Organization Details Recorded Time Allergic rhinitis [id number] Active 023 SCIT 4 RORY JO MD [address], [address], [facility] 09:46:48 Perennial allergic rhinitis [id number] Active 024 LYNNE CANELA [address] [address], [place], [address], [place] [facility] 15:10:16 Problem Notes None recorded. Procedures Surgical History Date Name Laterality Status Provider Name and Address Organization Details Recorded Time 01/04/20 25 Allergy Immunotherapy Injections completed LYNNE GONZALEZ 100 [facility],[address], [place], [address], [place] [facility] 01/04/2025 13:55:01 12/28/19 25 Allergy Immunotherapy Injections completed AURELIO JOHN RN 100 [facility],[place] [address] [place] [address], [address], [place] [facility] 12/28/2024 13:18:51 12/21/19 25 Allergy Immunotherapy Injections completed AURELIO JOHN RN 100 [facility],[address], [address], [place] [facility] 01/09/2025 13:31:55 12/14/19 25 Allergy Immunotherapy Injections completed LYNNE GONZALEZ 100 [facility],[place] [address] [place] [address], [address], [place] [facility] 12/14/2024 13:40:44 12/07/19 25 Allergy Immunotherapy Injections completed JEANIE CHOEN Yolande [address] [facility] [address],[place] [address] [place] [address], [address], [place] [facility] 12/07/2024 13:07:37 11/30/19 25 Allergy Immunotherapy Injections completed LYNNE GONZALEZ 100 [facility],[place] [address] [place] [address], [address], [place] [facility] 11/30/2024 09:42:31 11/23/20 24 Allergy Immunotherapy Injections completed AURELIO JOHN RN 100 [facility],[place] [address] [place] [address], [address], [place] [facility] 11/23/2024 10:42:45 11/16/20 24 Allergy Immunotherapy Injections completed AURELIO JOHN RN 100 [facility],[place] [address] [place] [address], [address], [place] [facility] 11/16/2024 16:15:27 11/09/20 24 Allergy Immunotherapy Injections completed FELIX MALDONADO RMA [address],[place] [address], [place], [address], [place] [facility] 11/09/2024 13:24:10 11/02/20 24 Allergy Immunotherapy Injections completed FELIX MALDONADO RMA [address], [place], [address], [place] [facility] 11/02/2024 13:09:40 10/24/20 24 Allergy Immunotherapy Injections completed AURELIO JOHN RN [address] [facility] [address], [place], [address], [place] [facility] 10/24/2024 09:19:27 10/19/20 24 Allergy Immunotherapy Injections completed LYNNE GONZALEZ [address], [place], [address], [place] [facility] 10/19/2024 13:27:58 10/12/20 24 Allergy Immunotherapy Injections completed JEANIE COHEN RMA [address], [place], [address], [place] [facility] 10/12/2024 13:15:15 10/05/20 24 Allergy Immunotherapy Injections completed JEANIE COHEN, RMA [address],[place], [place], [address], [place] [facility] 10/05/2024 14:07:24 09/28/20 24 Allergy Immunotherapy Injections completed JEANIE COHEN RMA [address],[place] [address] [place] [address], [address], [place] [facility] 09/28/2024 13:11:21 09/21/20 24 Allergy Immunotherapy Injections completed AURELIO JOHN RN [address] [facility] [address],[place] [address] [place] [address], [address], [place] [facility] 09/21/2024 13:10:06 09/14/20 24 Allergy Immunotherapy Injections completed AURELIO JOHN RN [address],[place] [address] [place] [address], [address], [place] [facility] 09/14/2024 13:32:46 09/07/20 24 Allergy Immunotherapy Injections completed JEANIE COHEN RMYolande [address], [place], [address], [place] [facility] 09/07/2024 13:20:23 08/31/20 24 Allergy Immunotherapy Injections completed LYNNE GONZALEZ [address], [place], [address], [place] [facility] 08/31/2024 13:25:15 08/24/20 24 Allergy Immunotherapy Injections completed LYNNE GONZALEZ [address], [place], [address], [place] [facility] 08/24/2024 14:27:51 08/17/20 24 Allergy Immunotherapy Injections completed AURELIO JOHN RN [address] [facility] [address],[place] [address] [place] [address], [address], [place] [facility] 08/17/2024 13:14:10 08/10/20 24 Allergy Immunotherapy Injections completed LYNNE GONZALEZ [address],[place] [address] [place] [address], [address], [place] [facility] 08/10/2024 13:32:07 08/02/20 24 Allergy Immunotherapy Injections completed AURELIO JOHN RN [address] [facility] [address],[place] [address] [place] [address], [address], [place] [facility] 08/02/2024 14:02:59 07/27/20 24 Allergy Immunotherapy Injections completed LYNNE CANELA [address], [place], [address], [place] [facility] 07/27/2024 13:30:48 07/20/20 24 Allergy Immunotherapy Injections completed LYNNE GONZALEZ [address], [place], [address], [place] [facility] 07/20/2024 13:04:29 07/13/20 24 Allergy Immunotherapy Injections completed AURELIO JOHN RN [address] [facility] [address], [place], [address], [place] [facility] 07/13/2024 13:55:03 07/06/20 24 Allergy Immunotherapy Injections completed LYNNE GONZALEZ [address], [place], [address], [place] [facility] 07/06/2024 14:54:25 06/29/20 24 Allergy Immunotherapy Injections completed AURELIO JOHN RN [address], [place], [address], [place] [facility] 06/29/2024 14:42:23 06/22/20 24 Allergy Immunotherapy Injections completed JEANIE COHEN, RMA [address], [place], [address], [place] [facility] 06/22/2024 14:02:42 06/15/20 24 Allergy Immunotherapy Injections completed JEANIE COHEN, RMA [address], [place], [address], [place] [facility] 06/15/2024 14:20:31 06/08/20 24 Allergy Immunotherapy Injections completed JEANIE COHEN RMA [address], [place], [address], [place] [facility] 06/08/2024 14:11:02 06/01/20 24 Allergy Immunotherapy Injections completed LYNNE GONZALEZ [address], [place], [address], [place] [facility] 06/01/2024 12:54:58 05/25/20 24 Allergy Immunotherapy Injections completed LYNNE GONZALEZ [address], [place], [address], [place] [facility] 05/25/2024 13:28:52 05/18/20 24 Allergy Immunotherapy Injections completed AURELIO JOHN RN [address] [facility] [address],[place] [address] [place] [address], [address], [place] [facility] 05/18/2024 14:23:29 05/11/20 24 Allergy Immunotherapy Injections completed WARREN GONZALEZA [address], [place], [address], [place] [facility] 05/11/2024 13:14:45 05/04/20 24 Allergy Immunotherapy Injections completed JEANIE BUTLER, [facility] [address] [place],[address], [address], [facility] - [facility] 05/04/2024 13:16:30 04/27/20 24 Allergy Immunotherapy Injections completed FELIXLAURENCE MALDONADO [facility] 100 [facility],[address], [address], [facility] - [facility] 04/27/2024 13:07:12 04/20/20 24 Allergy Immunotherapy Injections completed FELIXLAURENCE MALDONADO, [facility] 100 [facility], [place], [address], [facility] - [facility] 04/20/2024 13:14:24 04/13/20 24 Allergy Immunotherapy Injections completed JEANIE LUKE, [facility] 100 [facility],[address], [address], [facility] - [facility] 04/13/2024 15:10:38 Imaging Results None recorded. [...] 375 mg tablet active Medicatio n ID: [id number] and Name: naproxen Send Method: E-Prescri bed [...] SNOMED-CT Code Diagnosis ICD10 Code Diagnosis Note [id number] AURELIO JOHN RN Allergy [address] [place] [address] 11/16/2024 12:45:31 11/16/2024 16:16:04 Perennial allergic rhinitis 745165239 J30.89 [id number] AURELIO JOHN RN Allergy [address] [place] [address] 11/23/2024 09:01:47 11/23/2024 10:43:09 Perennial allergic rhinitis 160170294 J30.89 43860 FELIX MALDONADO [facility] Allergy [address] [place] [address] 11/30/2024 08:49:59 11/30/2024 09:43:05 Perennial allergic rhinitis [id number] J30.89 [id number] JEANIE BUTLER [facility] Allergy [address] [place] [address] 12/07/2024 12:38:55 12/07/2024 13:08:04 Perennial allergic rhinitis [id number] J30.89 35938 FELIX MALDONADO [facility] Allergy [address] [place] [address] 12/14/2024 12:46:29 12/14/2024 13:18:17 Perennial allergic rhinitis [id number] J30.89 Health Concerns Section Related Observation LastModified by Organization Detai ls LastModified Time None Recorded Concern Status LastModified by Organization Details LastModified Time None Recorded Payers Encounter Date Sequence Insurance Name Policy Number Policy Siddiqui Covered Member ID Siddiqui Member ID Guarantor Name 12/14/2024 1 [facility] - DOS ON OR AFTER 2023 - MEDICARE ADVANTAGE [place] (MEDICARE REPLACEMENT/ADV ANTAGE - PPO) Karyn Breaux [id number] Karyn Coates OBGyn Episode No OBEpisode recorded.
== END 2025-01-09 15:26 | disposition home or self-care (01) ==
PROVIDERS: PCP Internal Medicine; Visit Provider Internal Medicine
DX: E11.65 Type 2 diabetes mellitus with hyperglycemia (principal); F33.0 Major depressive disorder, recurrent, mild; E78.5 Hyperlipidemia, unspecified; E55.9 Vitamin D deficiency, unspecified

== ENCOUNTER → 2025-01-09 14:39 | Outpatient (BNVA) | payer OTHER, SELFPAY | PROVIDERS: PCP Internal Medicine; Visit Provider Internal Medicine | DX: E11.65 Type 2 diabetes mellitus with hyperglycemia (principal); F33.0 Major depressive disorder, recurrent, mild; E78.5 Hyperlipidemia, unspecified; E55.9 Vitamin D deficiency, unspecified | CPT/HCPCS: 99212 ==

== ENCOUNTER 2025-06-26 09:57 | Outpatient (REF) | payer OTHER, SELFPAY ==
--- OUTSIDE RECORDS SUMMARY | 2025-06-26 10:44 | XMS_ITS | Encounter Summary ---
Author Organization [employer] [facility] Address [address] [facility] 7t [place] [address] Care Team Providers Care Parking Meter Collector Name Role Phone Unavailable Primary Care Provider Unavailabl e Encounter Details Date Type Department Care Team (Latest Contact Info) Description 11/07/2019 Abstract [facility] CONVERSIONS Dental, Provider, DDS Social History Tobacco [...] as of this encounter Plan of Treatment Upcoming Encounters Date Type Department Care Team (Late st Contact Info) Description 07/18/2025 9:00 AM EDT Office Visit [facility] ADULT DENTAL [address] [place] [address] Khalil-Dave, Allison, DDS [address] [place] [address] 08/28/2025 1:00 PM EDT Office Visit [facility] ADULT [facility] [address] [place] [address] Subha Roman documented as of this encounter Visit Diagnoses Not on filedocumented in this encounter
[2025-06-26 12:14] LABS: Alanine Aminotransferase 36 U/L (0-31); Albumin Level 4.5 g/dL (3.5-5.0); Alkaline Phosphatase 142 U/L (39-117); Anion Gap 12 (12-20); Aspartate Amino Transferase 31 U/L (5-31); Blood Urea Nitrogen 8 mg/dL (9-16); Calcium 9.0 mg/dL (8.4-10.2); Carbon Dioxide 25 mmol/L (22-29); Chloride 107 mmol/L (96-108); Cholesterol 127 mg/dL (<200); Estimated Glomerular Filt Rate > 60; HDL Cholesterol 38 mg/dL (>40); Potassium 3.6 mmol/L (3.3-5.1); Sodium 140 mmol/L (135-145); Total Protein 7.6 g/dL (6.5-8.0); Triglycerides 94 mg/dL (<150)
[2025-06-26 12:19] LABS: Cholesterol 126 mg/dL (<200); HDL Cholesterol 38 mg/dL (>40); Triglycerides 83 mg/dL (<150)
[2025-06-26 12:23] LABS: Microalbum/Creatinine Ratio Ur 4.6 ug/mg cr (<30)
== END 2025-06-26 09:58 | disposition home or self-care (01) ==
LOC: HO.LAB 09:57
PROVIDERS: PCP Internal Medicine; Visit Provider Internal Medicine
DX: E11.9 Type 2 diabetes mellitus without complications (principal); R74.01 Elevation of levels of liver transaminase levels; E78.00 Pure hypercholesterolemia, unspecified; E55.9 Vitamin D deficiency, unspecified
CPT/HCPCS: 36415; 80053; 80061; 82043; 82306; 82570

== ENCOUNTER 2025-07-24 09:08 | Outpatient (REF) | payer OTHER, SELFPAY ==
--- OUTSIDE RECORDS SUMMARY | 2025-07-24 09:38 | XMS_ITS | Encounter Summary ---
Author Organization [employer] [facility] Address [address] [facility] 7t [place] [address] Care Team Providers Care Chief Digital Officer Name Role Phone Unavailable Primary Care Provider Unavailabl e Encounter Details Date Type Department Care Team (Latest Contact Info) Description 03/05/2022 Abstract [facility] CONVERSIONS Dental, Provider, DDS Social History [...] Care Team (Late st Contact Info) Description 08/14/2025 9:30 AM EDT Office Visit [facility] ADULT DENTAL [address] [place] [address] Khalil-Dave, Allison, DDS [address] [place] [address] 08/28/2025 1:00 PM EDT Office Visit [facility] ADULT DENTAL [address] [place] [address] Subha Roman documented as of this encounter Visit Diagnoses Not on filedocumented in this encounter
--- OUTSIDE RECORDS SUMMARY | 2025-07-24 09:38 | XMS_ITS | Encounter Summary ---
Author Organization [employer] [facility] Address [address] [facility] 7t [place] [address] Care Team Providers Care Professor Of Food Biochemistry Name Role Phone Unavailable Primary Care Provider Unavailabl e Encounter Details Date Type Department Care Team (Late st Contact Info) Description 11/09/2022 Abstract [facility] ADULT DENTAL [address] [place] [address] Allison Cordero, DDS [address] [place] [address] Social History Tobacco Use Types Packs/Day Years [...] Description 08/14/2025 9:30 AM EDT Office Visit [facility] ADULT DENTAL [address] [place] [address] Allison Cordero, DDS [address] [place] [address] 08/28/2025 1:00 PM EDT Office Visit [facility] ADULT DENTAL [address] [place] [address] Subha Roman documented as of this encounter Visit Diagnoses Not on filedocumented in this encounter
--- OUTSIDE RECORDS SUMMARY | 2025-07-24 09:38 | XMS_ITS | Encounter Summary ---
Author Organization [employer] [facility] Address [address] [facility] 7t [place] [address] Care Team Providers Care Piece Hand Name Role Phone Unavailable Primary Care Provider Unavailabl e Encounter Details Date Type Department Care Team (Latest Contact Info) Description 11/07/2019 Abstract [facility] CONVERSIONS Dental, Provider, DDS Social History [...] Description 08/14/2025 9:30 AM EDT Office Visit [facility] ADULT DENTAL [address] [place] [address] Khalil-Dave, Allison, DDS [address] [place] [address] 08/28/2025 1:00 PM EDT Office Visit [facility] ADULT DENTAL [address] [place] [address] Subha Roman documented as of this encounter Visit Diagnoses Not on filedocumented in this encounter
--- OUTSIDE RECORDS SUMMARY | 2025-07-24 09:38 | XMS_ITS | Clinical Summary ---
Author Organization [employer] Address [address] [facility] 7t [place] [address] Care Team Providers Care Directory Compiler Name Role Phone Unavailable Primary Care Provider [...] tablet by mouth at bed time. Active SITagliptin (Januvia) 25 MG tablet Take 25 mg by mouth Once per day. Active Active Problems Problem Noted Date Diagnosed Date Perennial allergic rhinitis 10/31/2023 Overview (05/08/2025): SCIT 01/24/24 Encounters Date Type Department Care Team Description 07/18/2025 9:00 AM EDT Office Visit [facility] ADULT DENTAL [address] [place] [address] Khalil-DaveAllison, DDS Recurrent dental caries extending into dentin (Primary Dx) 05/08/2025 10:00 AM EDT Office Visit [facility] ADULT DENTAL [address] [place] [address] Khalil-Dave, Allison, DDS Recurrent dental caries extending into dentin (Primary Dx) from Last 3 Months Immunizations Immunization Administration Dates Next Due Influenza injectable quadrivalent [...] Sign Reading Time Taken Comments Blood Pressure 138/80 07/18/2025 9:12 AM EDT Pulse - - Temperature - - Respiratory Rate - - Oxygen Saturation - - Inhaled Oxygen Concentration - - Weight - - Height - - Body Mass Index - - Plan of Treatment Upcoming Encounters Date Type Department Care Team (Late st Contact Info) Description 08/14/2025 9:30 AM EDT Office Visit [facility] ADULT DENTAL [address] [place] [address] Khalil-Allison Dave, DDS [address] [place] [address] 08/28/2025 1:00 PM EDT Office Visit [facility] ADULT DENT[facility] [address] [place] [address] Subha Roman Health Maintenance Due Date Last Done Comments Depression Screening 1985 HIV Screening 1985 SDOH Screening 1985 Disability Screening 1985 Alcohol/Substance Use Screening 1997 Family Planning (PISQ) 2000 HPV Vaccines (1 - 3-dose series) 2000 Hepatitis C Screening 2003 DTaP/Tdap/Td Vaccines (1 - Tdap) 2004 Hepatitis B Vaccines (1 of 3 - 19+ 3-dose series) 2004 Pap Smear 2006 Cervical Cancer Screening 2015 HPV/Cotest 2015 COVID-19 Vaccine ( - 2023-2 5 season) 2024 Mammogram 2025 Influenza Vaccine (#1) 2025 10/06/2021 Dental Oral Exam 08/24/2025 02/20/2025 Dental Prophylaxis 08/24/2025 02/20/2025 Dental X-Ray: Bitewings 02/21/2026 02/20/2025 Tobacco Screening 07/18/2026 07/18/2025 Dental X-Ray: Full Mouth 02/22/2028 02/20/2025 Zoster Vaccines (1 of 2) 2035 RSV [...] patient's age to complete this topic Meningococcal B Vaccine Aged Out No l onger eligible based on patient's age to complete this topic Meningococcal Vaccine Aged Out No daysi esther eligible based on patient's age to complete this topic Pneumococcal Vaccine: Pediat rics (0 to 5 Years) and At-Risk Patients (6 to 49) Years Aged Out No longer eligi ble based on patient's age to complete this topic RSV under 20 months Aged Out No longe r eligible based on patient's age to complete this topic Rotavirus Vaccines Aged Out No longer eligible based on patient's age to complete this topic Procedures Procedure Name Priority Date/Time Associated Diagnosis Comments CASE PRESENTATION, DETAILED AND EXTENSIVE TREATMENT PLANNING Routine 07/18/2025 9:00 AM EDT Recurrent dental caries extending into dentin 29 DO RESIN-BASED COMPOSITE - 2 SURF, POSTERIOR Routine 07/18/2025 9:00 AM EDT Recurrent dental caries extending into dentin CASE PRESENTATION, DETAILED AND EXTENSIVE TREATMENT PLANNING Routine 05/08/2025 10:00 AM EDT Recurrent dental caries extending into dentin 5 MOD RESIN-BASED COMPOSITE - 3 SURF, POSTERIOR Routine 05/08/2025 10:00 AM EDT Recurrent dental caries extending into dentin PROPHYLAXIS - ADULT Routine 02/20/2025 2 :00 PM EDT Dental calculus Dental plaque INTRAORAL - COMPLETE SERIES OF RADIOGRAPHIC IMAGES Routine 02/20/2025 2:00 PM EDT PERIODIC ORAL EVALUATION - ESTABLISHED PATIENT Routine 02/20/2025 2:00 PM EDT from Last 3 Months or Most Recently Relevant to Health Maintenance Insurance DENTAL - [facility]
== END 2025-07-24 09:09 | disposition home or self-care (01) ==
LOC: HO.MAMMO 09:08
PROVIDERS: PCP Internal Medicine
DX: Z12.31 Encounter for screening mammogram for malignant neoplasm of breast (principal)
CPT/HCPCS: 77063; 77067

== ENCOUNTER → 2025-07-24 09:30 | Outpatient (BNV) | payer OTHER, SELFPAY | PROVIDERS: PCP Internal Medicine; Visit Provider Radiology Body Imaging | DX: Z12.31 Encounter for screening mammogram for malignant neoplasm of breast (principal) | CPT/HCPCS: 77063; 77067 ==

== ENCOUNTER 2025-08-27 09:04 | Outpatient (REF) | payer OTHER, SELFPAY ==
--- NOTE | ~2025-08-27 | US_ITS ---
EXAMINATION: US ABDOMEN LIMITED WITH LIVER ELASTOGRAPHY HISTORY: R74.01 - Elevation of levels of liver transaminase levels TECHNIQUE: Real-time grayscale ultrasound imaging of the right upper quadrant was performed and images were reviewed. COMPARISON: Comparison is made to the prior examination dated 08/24/2023. Correlation is also made with the prior elastography study dated 02/05/2021. FINDINGS: Liver: The right lobe of the liver measures 16.2 cm in size. The left lobe of the liver measures 12.9 cm in size. The liver demonstrates increased echotexture, consistent with steatosis. No focal mass or intrahepatic biliary ductal dilatation is identified. There is normal hepatopedal flow in the portal vein. Ultrasound elastography of the liver was performed with 10 separate measurements of the liver parenchyma with the patient in the supine position. Measurements were obtained approximately 2 cm below Nicolasa's capsule and perpendicular to the capsule. The median shear wave velocity is 1.36 m/s (previously 1.73 m/s). The interquartile range/median (IQR/median) is 0.07. Gallbladder and biliary tree: The gallbladder is unremarkable, without evidence of calculi, wall thickening, or pericholecystic fluid. There is no sonographic Wells sign. The common bile duct is normal in caliber measuring 5 mm. Right Kidney: The right kidney measures 9.0 cm in length. The right kidney is unremarkable, without evidence of masses, hydronephrosis, or calculi. Pancreas: The pancreatic head, neck, and body are unremarkable. The pancreatic tail is obscured by bowel gas. Abdominal aorta and inferior vena cava: The visualized portions of the abdominal aorta and inferior vena cava are normal in caliber. There is no free fluid in the right upper quadrant. US/US abdomen rocha w elastography IMPRESSION: Mild hepatomegaly. Hepatic steatosis. The median shear wave velocity in the liver is 1.36 m/s, corresponding to a median liver stiffness of 5.68 kPa. The IQR/median value is 0.07. This is indicative of a quality data set. Findings are indicative of a low elastography value which rules out advanced chronic liver disease in asymptomatic patients. REFERENCE: Society of Radiologists in Ultrasound Liver Stiffness Thresholds (2020): LIVER STIFFNESS THRESHOLDS: *Shear wave velocity less than 1.3 m/s (Liver Stiffness equal or less than 5 kPa): High probability of being normal. *Shear wave velocity less than 1.7 m/s (Liver Stiffness less than 9 kPa): In the absence of other known clinical signs, rules out compensated advanced chronic liver disease. *Shear wave velocity between 1.7-2.1 m/s (Liver Stiffness 9-13 kPa): Suggestive of compensated advanced chronic liver disease but need further test for confirmation. *Shear wave velocity between 2.1-2.4 m/s (Liver Stiffness 13-17 kPa): Rules in compensated advanced chronic liver disease. *Shear wave velocity greater than 2.4 m/s (Liver Stiffness over 17 kPa): Suggestive of clinically significant portal hypertension. QUALITY OF DATA SET: *IQR/Median value equal or less than 0.15 implies a quality data set. *IQR/Median value over 0.15 implies a poor quality data set. SIGNIFICANT CHANGE FROM PRIOR EXAM: Significant change if liver stiffness measurement is 10% or greater from prior exam. OTHER CONSIDERATIONS: The stage of liver fibrosis may be overestimated in the setting of acute hepatitis, liver inflammation, elevated liver function tests, hepatic vascular congestion, obstructive cholestasis, non-fasting state, and infiltrative diseases such as amyloidosis and lymphoma. In some patients with NAFLD, the liver stiffness thresholds for compensated advanced chronic liver disease may be lower. In causes other than viral hepatitis and NAFLD, liver stiffness thresholds are not well established. Electronically signed by: Aniket Garcia MD 08/27/2025 09:42 AM EDT
--- NOTE | ~2025-08-27 | US_ITS ---
EXAMINATION(S): 1. MM DIAGNOSTIC DIGITAL BREAST TOMOSYNTHESIS, BILATERAL 2. Targeted ultrasound of the right breast 3. Targeted ultrasound of the left breast CLINICAL INFORMATION: Callback from baseline mammogram for bilateral findings: Right breast: Asymmetry in the lateral breast at 9 cm from the nipple on the CC view Left breast: Asymmetry in the upper breast at 9 cm from the nipple, probably located in the lateral breast on CC view. COMPARISON: Mammogram on July 24, 2025. TECHNIQUE: Digital breast tomosynthesis is performed in full-field CC view along with computer-aided detection (CAD). Synthesized 2D images are generated from the tomosynthesis. Spot compression tomosynthesis were obtained. FINDINGS: BREAST COMPOSITION: There are scattered areas of fibroglandular density. RIGHT BREAST: Previously suggested asymmetry in the lateral breast middle depth is pliable but persists with spot compression (CC 35/69). Its correlate appears to be located in the upper breast on the MLO view. Targeted ultrasound of the right breast was performed at the location of the mammographic finding. The survey throughout the 10:00 to 1:00 axis did not reveal suspicious sonographic correlate. LEFT BREAST: Previously suggested focal asymmetry in the upper outer quadrant middle depth is pliable with spot compression; findings likely represented overlapping fibroglandular breast tissue. Targeted ultrasound of the left breast was performed at the location of the mammographic finding. The survey throughout the upper outer quadrant did not reveal suspicious sonographic findings. US/US Breast LT Limited Mamm Only IMPRESSION: RIGHT BREAST: Focal asymmetry in the upper outer quadrant middle depth without definite suspicious sonographic correlate. Probably benign. A 6-month follow-up mammogram is recommended. LEFT BREAST: Pliable focal asymmetry in the upper outer quadrant without suspicious sonographic correlate. Negative, no mammographic evidence of malignancy. Normal interval follow-up is recommended in 12 months. ASSESSMENT: BI-RADS: Category 3: Probably benign RECOMMENDATION: 6 Month F/U Results were provided to the patient at time of visit by the technologist. This patient's information was entered into a reminder system with a target due date for their next mammogram. Electronically signed by: Karena Ovalle MD 08/27/2025 06:16 PM EDT
--- OUTSIDE RECORDS SUMMARY | 2025-08-27 09:47 | XMS_ITS | Clinical Summary ---
Author Organization [employer] Address [address] [facility] 7t [place] [address] Care Team Providers Care Semiconductor Testing Group Leader Name Role Phone Unavailable Primary Care Provider [...] Encounters Date Type Department Care Team Description 08/14/2025 9:30 AM EDT Office Visit [facility] ADULT DENTAL [address] [place] [address] Allison Cordero, SHYAMS Dental caries (Primary Dx) 07/18/2025 9:00 AM EDT Office Visit [facility] ADULT DENTAL [address] [place] [address] Khalil-DaveAllison, DDS Recurrent dental caries extending into [...] Sign Reading Time Taken Comments Blood Pressure 120/72 08/14/2025 9:17 AM EDT Pulse - - Temperature - - Respiratory Rate - - Oxygen Saturation - - Inhaled Oxygen Concentration - - Weight - - Height - - Body Mass Index - - Plan of Treatment Upcoming Encounters Date Type Department Care Team (Late st Contact Info) Description 08/28/2025 12:45 PM EDT Office Visit [facility] ADULT DENTAL [address] [place] [address] Subha Roman Health Maintenance Due Date Last [...] 2006 Cervical Cancer Screening 2015 HPV/Cotest 2015 Mammogram 2025 COVID-19 Vaccine (1 - 4-2 5 season) 2025 Influenza Vaccine (#1) 2025 10/06/2021 Dental Oral Exam 08/24/2025 02/20/2025 Dental Prophylaxis 08/24/2025 02/20/2025 Dental X-Ray: Bitewings 02/21/2026 02/20/2025 Tobacco Screening 08/14/2026 08/14/2025 Dental X-Ray: Full Mouth 02/22/2028 02/20/2025 Zoster [...] PRESENTATION, DETAILED AND EXTENSIVE TREATMENT PLANNING Routine 08/14/2025 9:30 AM EDT Dental caries 22 FF(V) RESIN-BASED COMPOSITE - 1 SURF, ANTERIOR Routine 08/14/2025 9:30 AM EDT Dental caries 21 BB(V) RESIN-BASED COMPOSITE - 1 SURF, POSTERIOR Routine 08/14/2025 9:30 AM EDT Dental caries CASE PRESENTATION, DETAILED AND EXTENSIVE TREATMENT PLANNING [...] Relevant to Health Maintenance Insurance DENTAL - [facility]
--- OUTSIDE RECORDS SUMMARY | 2025-08-27 09:47 | XMS_ITS | Encounter Summary ---
Author Organization [employer] [facility] Address [address] [facility] 7t [place] [address] Care Team Providers Care Holistic Health Practitioner Name Role Phone Unavailable Primary Care Provider Unavailabl e Encounter Details Date Type Department Care Team (Latest Contact Info) Description 03/05/2022 Abstract [facility] CONVERSIONS Dental, Provider, DDS Social History Tobacco [...] Description 08/28/2025 12:45 PM EDT Office Visit [facility] ADULT DENTAL [address] [place] [address] Subha Roman documented as of this encounter Visit Diagnoses Not on filedocumented in this encounter
--- OUTSIDE RECORDS SUMMARY | 2025-08-27 09:47 | XMS_ITS | Encounter Summary ---
Author Organization [employer] [facility] Address [address] [facility] 7t [place] [address] Care Team Providers Care Web Search Evaluator Name Role Phone Unavailable Primary Care Provider Unavailabl e Encounter Details Date Type Department Care Team (Latest Contact Info) Description 11/07/2019 Abstract [facility] CONVERSIONS Dental, Provider, DDS Social History [...] Description 08/28/2025 12:45 PM EDT Office Visit [facility] ADULT DENTAL [address] [place] [address] Subha Roman documented as of this encounter Visit Diagnoses Not on filedocumented in this encounter
--- OUTSIDE RECORDS SUMMARY | 2025-08-27 09:47 | XMS_ITS | Encounter Summary ---
Author Organization [facility] Address [address] [facility] 7t [place] [address] Care Team Providers Care Instrument Maker Name Role Phone Unavailable Primary Care Provider Unavailabl e Encounter Details Date Type Department Care Team (Late st Contact Info) Description 11/09/2022 Abstract [facility] ADULT DENTAL [address] [place] [address] Allison Cordero DDS [address] [place] [address] Social History Tobacco Use Types Packs/Day Years [...] Description 08/28/2025 12:45 PM EDT Office Visit [facility] ADULT DENTAL [address] [place] [address] Subha Roman documented as of this encounter Visit Diagnoses Not on filedocumented in this encounter
== END 2025-08-27 09:05 | disposition home or self-care (01) ==
LOC: HO.US 09:04
PROVIDERS: PCP Internal Medicine; Visit Provider Internal Medicine
DX: N64.89 Other specified disorders of breast (principal); R74.01 Elevation of levels of liver transaminase levels
CPT/HCPCS: 76642; 76705; 76981; 77062; 77066

== ENCOUNTER → 2025-08-27 09:06 | Outpatient (BNV) | payer OTHER, SELFPAY | PROVIDERS: PCP Internal Medicine; Visit Provider Radiology Diagnostic Radiology | DX: R92.8 Other abnormal and inconclusive findings on diagnostic imaging of breast (principal); R74.01 Elevation of levels of liver transaminase levels | CPT/HCPCS: 76642; 76705; 77066; G0279 ==

== ENCOUNTER 2025-09-18 15:08 | Outpatient (AMB) | payer OTHER, SELFPAY ==
[2025-09-18 16:27] VITALS: BP 142/100; PULSE 72; RESP 18; TEMP 36.2; O2SAT 98; BMI 38.3
--- NOTE | 2025-09-18 16:27 | A.OFFPC_ITS ---
Vital Signs 09/18/25 16:27 Height 4 ft 11 in Weight 189 lb 8 oz BMI 38.3 BP 142/100 H Blood Pressure Location Lt brachial Position Sitting Respiration 18 Pulse 72 Pulse Source Pulse Oximeter Temp 97.1 F Temp Source Temporal Artery Scan Pulse Oximetry (%) 98 Oxygen Delivery Method Room Air Intake Visit Reasons: DM- repeat A1C needed Necktie Stitcher Required: No Accompanied by: Self / Same As Patient Allergies empagliflozin (From Jardiance) Allergy (Intermediate, Verified 09/18/25 16:37) frequency Urination tetracycline (Tetracycline) Allergy (Intermediate, Verified 09/18/25 16:37) SWELLING Medication List - Last Reconciled 09/18/25 by Genie Taylor MD [adult diapers briefs As directed] atorvastatin 40 mg PO BEDTIME 90 days blood sugar diagnostic (FreeStyle Test strips) Use 1 test strip once a day blood-glucose meter (FreeStyle [place] kit) As directed citalopram 20 mg PO DAILY 90 days lancets (FreeStyle Lancets) Use 1 lancet once a day metformin 500 mg PO DAILY 90 days naproxen 375 mg PO BID PRN trazodone 50 mg PO BEDTIME PRN 90 days underpads (Certainty Underpads) As directed Tobacco use date assessed: 09/18/25 Dental Screening Dental Screen Date: 09/18/25 Did you have a dental visit in the last 12 months?: Yes Did you have a dental problem in the last 6 months where you did not have access to dental care?: No Was dental information given to patient?: Patient has dentist HPI HPI Comments History of Present Illness Details The patient is a 40-year-old female presenting for management of hypertension and diabetes. The patient has a history of hypertension, with a recent blood pressure reading of 140/100 mmHg. She is currently not on medication for hypertension but will be started on lisinopril. The patient has been diagnosed with Type 2 Diabetes Mellitus, with a previous A1c level of 8.2% noted in December and now 8.7%. She is currently taking metformin once daily, but there is a consideration to increase the dosage to twice daily if her A1c remains uncontrolled. The patient is also being treated for hyperlipidemia with atorvastatin, which has been effective in maintaining her cholesterol levels. She has a history of depression with anxiety, for which she is taking citalopram. Additionally, she experiences insomnia and uses trazodone as needed for sleep. [facility] Medical History (Updated 09/18/25 @ 16:44 by Genie Taylor MD) Transaminitis Mild recurrent major depression Diabetes mellitus Migraines Obese Insomnia Depression Impaired glucose tolerance Hypovitaminosis D Surgical History H/O colonoscopy Encounter for IUD removal H/O LEEP Family History Father Heart disease CVD (cardiovascular disease) Prostate cancer Mother Diabetes mellitus Maternal Grandmother No problems noted. Maternal Grandfather No problems noted. Paternal Grandmother No problems noted. Paternal Grandfather No problems noted. Son In good health Son In good health Sister In good health Brother No problems noted. Brother No problems noted. Brother No problems noted. Social History Household Members Other:: son Housing: Apartment Alcohol intake: never Patient Tobacco Use Status: Never used Tobacco e-Cigarette/Vaping Use: Never Used Second Hand Smoke Exposure: No service: No Current occupational status: unemployed and disabled Sexual orientation: Straight/Heterosexual Gender identity: Female Cognitive needs: No Hearing needs: No Vision needs: No Female Reproductive History Menstrual Age of Menarche: 12 Questionnaire Thrive Questionnaire Date Thrive assessed: 01/07/25 I am a: Patient What is your living situation today?: I choose not to answer this question Within the past 12 months, did the food you bought not last and you didn't have the money to get more?: Often true Within the past 12 months, did you worry whether your food would run out before you got money to buy more?: Often true Do you have trouble paying for medicines?: No Do you have trouble getting transportation to medical appointments?: No Do you have trouble paying your heating and electricity bill?: No Do you have trouble taking care of your child, family member or friend?: No Do you have trouble with day-to-day activities such as bathing, preparing meals, shopping, managing finances, etc.?: No Are you currently unemployed and looking for a job?: No Are you interested in more education?: No Please select the resources that you would like help with: Food Currently or been in a relationship where the following occur: I choose not to answer THRIVE Score: 2 DILLON-7 AMB Questionnaire DILLON-7 Date DILLON - 7 assessed: 01/07/25 Source: Developed by Drs. Aniket Magallanes, Tammie Patiño, Vitaliy Yu and colleagues, with an educational saira from [employer]. Review of Systems Const All systems reviewed & are unremarkable except as noted in HPI and below Card Denies chest pain at rest, Denies chest pain with activity, Denies edema, Denies irregular heart rhythm, Denies claudication, Denies dyspnea, Denies dyspnea on exertion, Denies orthopnea, Denies paroxysmal nocturnal dyspnea and Denies slow heart rate Resp Denies cough, Denies dyspnea and Denies dyspnea on exertion Physical exam (Primary Care) Vital Signs: Last Vital Signs Temp 97.1 F 09/18/25 16:27 Pulse 72 09/18/25 16:27 Resp 18 09/18/25 16:27 BP 142/100 H 09/18/25 16:27 Pulse Ox 98 09/18/25 16:27 Oxygen Delivery Method Room Air 09/18/25 16:27 BMI result Body Mass Index 38.3 BMI Assessment/Plan discussion: High BMI High, discussed plan: lifestyle, weight reduction, dietary and physical activity Tobacco/Smoking Status: Tobacco use Status Tobacco use date assessed 09/18/25 09/18/25 16:31 Patient Tobacco Use Status Never used Tobacco 09/18/25 16:31 Tobacco use type 11/16/22 15:17 e-Cigarette/Vaping Use Never Used 09/18/25 16:31 Thrive Assessment: Date of Thrive Assessment Date Thrive assessed 01/07/25 09/18/25 16:31 Currently or been in a relationship where the following occur: I choose not to answer Resp Effort & Inspection: normal respiratory effort Auscultation: clear to auscultation bilaterally Cardio Jugular venous distension: no JVD Rate: regular rate Rhythm: regular rhythm Heart sounds: S1 normal heart sound present and S2 normal heart sound present Extrem General: Yes full ROM Results AMB Hemoglobin A1c AMB Hemoglobin A1c 8.7 % Last Edit by LYNNE Judd on 09/18/25 16 :52 Results Reviewed Results Reviewed: Laboratory Last Values Hgb A1c (Clinic) 8.7 % (4.0-6.0) H 09/18/25 16:42 Coding Level of Care Code Est Pt Level 4 (28948) Complex EM visit Add On G2211 Diagnoses Mild recurrent major depression F33.0 Essential hypertension I10 Hyperlipidemia LDL goal <70 E78.5 Type 2 diabetes mellitus with hyperglycemia, without long-term current use of insulin E11.65 Diabetes mellitus type: type 2 Diabetes mellitus custodial insulin use: without intermodal customer service use Diabetes mellitus complication status: with hyperglycemia Psychophysiological insomnia F51.04 Insomnia type: psychophysiologic Time Spent (min) 21 Assessment & Plan Assessment & Plan (1) Mild recurrent major depression: Code(s): F33.0 - Major depressive disorder, recurrent, mild Category: Medical (2) Essential hypertension: Code(s): I10 - Essential (primary) hypertension Category: Medical (3) Hyperlipidemia LDL goal <70: Code(s): E78.5 - Hyperlipidemia, unspecified Category: Medical (4) Diabetes mellitus: Comment: A1c increased from 6.4% (06/2023) to 7.2% 12/2023 Code(s): E11.9 - Type 2 diabetes mellitus without complications Category: Medical Qualifiers: Diabetes mellitus type: type 2 Diabetes mellitus intermodal customer service insulin use: without custodial use Diabetes mellitus complication status: with hyperglycemia Qualified Code(s): E11.65 - Type 2 diabetes mellitus with hyperglycemia (5) Insomnia: Code(s): G47.00 - Insomnia, unspecified Category: Medical Qualifiers: Insomnia type: psychophysiologic Qualified Code(s): F51.04 - Psychophysiologic insomnia Plan Plan 1. Essential (primary) hypertension I10 The patient will be started on lisinopril to manage her elevated blood pressure, which was recorded at 140/100 mmHg during the visit. Follow-up is planned in three months to reassess blood pressure control. 2. Type 2 diabetes mellitus without complications E11.9 HCC 19 The patient's A1c was previously noted to be 8.2%, and she is currently on metformin once daily. If her A1c remains uncontrolled, the plan is to increase metformin to twice daily. 3. Hyperlipidemia, unspecified E78.5 The patient is on atorvastatin, which has been effective in maintaining her cholesterol levels. 4. Other specified anxiety disorders F41.8 The patient is currently taking citalopram for depression with anxiety. 5. Insomnia, unspecified G47.00 The patient uses trazodone as needed for insomnia. Orders: Orders AMB Hemoglobin A1c 09/18/25 Z13.9 - Encounter for screening, unspecified Lipid Panel 4 Months E78.5 - Hyperlipidemia, unspecified Microalbumin, Random (w Creat) 4 Months R80.9 - Proteinuria, unspecified Comprehensive [place]. Panel Fast 4 Months E11.65 - Type 2 diabetes mellitus with hyperglycemia Vitamin D 25-OH Total 4 Months E55.9 - Vitamin D deficiency, unspecified Vitamin B12 and Folate 4 Months E53.8 - Deficiency of other specified B group vitamins Medications: New lisinopril 5 mg PO DAILY 90 tabs 1RF 90 days I10 - Essential (primary) hypertension semaglutide (Rybelsus) 3 mg PO DAILY 30 tabs 6RF 30 days E11.65 - Type 2 diabetes mellitus with hyperglycemia
--- OUTSIDE RECORDS SUMMARY | 2025-09-18 21:23 | XMS_ITS | Continuity of Care Document ---
Author Organization [place] - [facility], Allergy Address [address] [address] Care Team Providers [facility] Nurse Name Role Phone CAROLANN PEREIRA Primary Care Provider Assessment Encounter Date Assessment Date Assessment LastModified by Organization Details LastModified Time 09/13/2025 09/13/2025 Visit With: Shawanda Vaughn [place] Use of Antihistamine s: No If yes: Vial Test Change in medications: No If yes Increase in asthma symptoms If yes, inhaler use: Reaction to last injections: No If yes: Allergy Symptoms: Other: Missed: Dose Aware of Vial Test Aware: Notes: [email or web address] Not available 09/13/2025 13:28:57 Plan of Treatment Reminders Order Date Submit Date Provider Last Modified By Organization Details Last Modified Time Details Appointments [facility]- Allergy f-up 6mon 2025 09:15A M RORY JO MD Not available [...] Address Organization Details Recorded Time Allergic rhinitis [id number] Active 023 [facility] 4 RORY JO MD [address] [address], [place], [address] 4 09:46:48 Perennial allergic rhinitis [id number] Active 024 LYNNE GONZALEZ [address] [address], [place], [address], [place] [facility] 13:03:45 Problem Notes None recorded. Procedures Surgical History Date Name Laterality Status Provider Name and Address Organization Details Recorded Time 09/13/20 25 Allergy Immunotherapy Injections completed JEANIE COHEN, RMA [address], [place], [address], [place] [facility] 09/13/2025 13:28:44 09/06/20 25 Allergy Immunotherapy Injections completed WARREN GONZALEZA [address], [place], [address], [place] [facility] 09/06/2025 13:04:26 08/30/20 25 Allergy Immunotherapy Injections completed JEANIE COHEN RMA [address], [place], [address], [place] [facility] 08/30/2025 13:24:57 08/23/20 25 Allergy Immunotherapy Injections completed LYNNE GONZALEZ [address], [place], [address], [place] [facility] 08/23/2025 13:28:17 08/16/20 25 Allergy Immunotherapy Injections completed Shawanda Vaughn [address] [place] [address], [address], [facility] - [facility] 08/16/2025 13:08:50 08/07/20 25 Allergy Immunotherapy Injections completed LYNNE GONZALEZ [address], [place], [address], [place] [facility] 08/07/2025 16:07:34 08/02/20 25 Allergy Immunotherapy Injections completed Shawanda Vaughn [address], [place], [address], [place] [facility] 08/02/2025 14:16:31 07/26/20 25 Allergy Immunotherapy Injections completed WARREN GONZALEZA [address], [place], [address], [place] [facility] 07/26/2025 14:25:49 07/19/20 25 Allergy Immunotherapy Injections completed LYNNE GONZALEZ [address], [place], [address], [place] [facility] 07/19/2025 14:56:07 07/12/20 25 Allergy Immunotherapy Injections completed Shawanda Vaughn [address], [place], [address], [place] [facility] 07/12/2025 13:27:40 07/05/20 25 Allergy Immunotherapy Injections completed Shawanda Vaughn [address], [place], [address], [place] [facility] 07/05/2025 13:09:48 06/28/20 25 Allergy Immunotherapy Injections completed AURELIO JOHN RN [address] [place] [address], [address], [place] [facility] 06/28/2025 09:11:28 06/20/20 25 Allergy Immunotherapy Injections completed AURELIO JOHN RN [address] [facility] [place] [address], [address], [place] [facility] 06/20/2025 13:09:15 06/14/20 25 Allergy Immunotherapy Injections completed LYNNE GONZALEZ [address] [place] [address], [address], [place] [facility] 06/14/2025 13:12:22 06/07/20 25 Allergy Immunotherapy Injections completed LYNNE VALLADARES [address] [place] [address], [address], [place] [facility] 2025 15:32:50 05/30/20 25 Allergy Immunotherapy Injections completed LYNNE GONZALEZ [address] [facility] [address], [place], [address], [place] [facility] 05/30/2025 09:48:41 05/24/20 25 Allergy Immunotherapy Injections completed LYNNE GONZALEZ [address], [place], [address], [place] [facility] 05/24/2025 14:18:30 05/17/20 25 Allergy Immunotherapy Injections completed JEANIE COHEN, RMA [address], [place], [address], [place] [facility] 05/17/2025 13:15:00 05/10/20 25 Allergy Immunotherapy Injections completed LYNNE GONZALEZ [address], [place], [address], [place] [facility] 05/10/2025 13:38:30 05/03/20 25 Allergy Immunotherapy Injections completed AURELIO JOHN RN [address], [place], [address], [place] [facility] 05/03/2025 13:08:10 04/26/20 25 Allergy Immunotherapy Injections completed LYNNE GONZALEZ [address] [facility] [address], [place], [address], [place] [facility] 04/26/2025 15:19:52 04/19/20 25 Allergy Immunotherapy Injections completed LYNNE VALLADARES [address], [place], [address], [place] [facility] 04/19/2025 13:23:02 04/12/20 25 Allergy Immunotherapy Injections completed AURELIO JOHN RN [address], [place], [address], [place] [facility] 04/12/2025 13:42:59 04/05/20 25 Allergy Immunotherapy Injections completed LYNNE VALLADARES [address] [facility] [address], [place], [address], [place] [facility] 04/05/2025 13:48:39 03/29/20 25 Allergy Immunotherapy Injections completed AURELIO JOHN RN [address] [facility] [address], [place], [address], [place] [facility] 03/29/2025 13:10:29 03/22/20 25 Allergy Immunotherapy Injections completed LYNNE GONZALEZ [address], [place], [address], [place] [facility] 03/22/2025 13:24:49 03/15/20 25 Allergy Immunotherapy Injections completed JEANIE COHEN, RMA [address], [place], [address], [place] [facility] 03/15/2025 13:35:42 03/08/20 25 Allergy Immunotherapy Injections completed AURELIO JOHN RN [address], [place], [address], [place] [facility] 03/08/2025 13:11:36 03/01/20 25 Allergy Immunotherapy Injections completed JEANIE COHEN, RMA [address], [place], [address], [place] [facility] 03/01/2025 14:52:03 02/22/20 25 Allergy Immunotherapy Injections completed FELIX MALDONADO, RMA [address], [place], [address], [place] [facility] 02/21/2025 13:06:45 02/16/20 25 Allergy Immunotherapy Injections completed JEANIE COHEN, RMA [address], [place], [address], [place] [facility] 02/15/2025 13:15:30 02/09/20 25 Allergy Immunotherapy Injections completed JEANIE VILLATOROZEC, RMA [address], [place], [address], [place] [facility] 02/08/2025 15:15:04 02/01/20 25 Allergy Immunotherapy Injections completed JEANIE BUTLERC, RMA [address], [place], [address], [place] [facility] 01/31/2025 08:56:58 01/25/20 25 Allergy Immunotherapy Injections completed JEANIE BUTLERC, RMA [address], [place], [address], [place] [facility] 01/25/2025 13:42:26 01/15/20 25 Allergy Immunotherapy Injections completed AURELIO JOHN RN [address], [place], [address], [place] [facility] 01/15/2025 13:27:54 01/04/20 25 Allergy Immunotherapy Injections completed LYNNE GONZALEZ [address], [place], [address], [place] [facility] 01/04/2025 13:55:01 12/28/19 25 Allergy Immunotherapy Injections completed AURELIO JOHN RN [address], [place], [address], [place] [facility] 12/28/2024 13:18:51 12/21/19 25 Allergy Immunotherapy Injections completed AURELIO JOHN RN [address], [place], [address], [place] [facility] 01/09/2025 13:31:55 12/14/19 25 Allergy Immunotherapy Injections completed LYNNE GONZALEZ [address], [place], [address], [place] [facility] 12/14/2024 13:40:44 12/07/19 25 Allergy Immunotherapy Injections completed LYNNE VALLADARES [address], [place], [address], [place] [facility] 12/07/2024 13:07:37 11/30/19 25 Allergy Immunotherapy Injections completed LYNNE GONZALEZ [address] [place] [address], [address], [place] [facility] 11/30/2024 09:42:31 11/23/20 24 Allergy Immunotherapy Injections completed AURELIO JOHN RN [address] [facility] [address], [place], [address], [place] [facility] 11/23/2024 10:42:45 11/16/20 24 Allergy Immunotherapy Injections completed AURELIO JOHN RN [address], [place], [address], [place] [facility] 11/16/2024 16:15:27 11/09/20 24 Allergy Immunotherapy Injections completed LYNNE GONZALEZ [address], [place], [address], [place] [facility] 11/09/2024 13:24:10 11/02/20 24 Allergy Immunotherapy Injections completed FELIX MALDONADO RMA [address], [place], [address], [place] [facility] 11/02/2024 13:09:40 10/24/20 24 Allergy Immunotherapy Injections completed AURELIO JOHN RN [address], [place], [address], [place] [facility] 10/24/2024 09:19:27 10/19/20 24 Allergy Immunotherapy Injections completed FELIX MALDONADO RMYolande [address], [place], [address], [place] [facility] 10/19/2024 13:27:58 10/12/20 24 Allergy Immunotherapy Injections completed JEANIE COHEN RMA [address], [place], [address], [place] [facility] 10/12/2024 13:15:15 10/05/20 24 Allergy Immunotherapy Injections completed JEANIE COHEN RMA [address] [facility], [place], [address], [place] [facility] 10/05/2024 14:07:24 09/28/20 24 Allergy Immunotherapy Injections completed JEANIE COHEN RMA [address] [place] [address], [address], [place] [facility] 09/28/2024 13:11:21 09/21/20 24 Allergy Immunotherapy Injections completed AURELIO JOHN RN [address] [facility] [address] [place] [address], [address], [place] [facility] 09/21/2024 13:10:06 09/14/20 24 Allergy Immunotherapy Injections completed AURELIO JOHN RN [address] [facility] [address] [place] [address], [address], [place] [facility] 09/14/2024 13:32:46 09/07/20 24 Allergy Immunotherapy Injections completed JEANIE COHEN RMA [address], [place], [address], [place] [facility] 09/07/2024 13:20:23 08/31/20 24 Allergy Immunotherapy Injections completed LYNNE GONZALEZ [address], [place], [address], [place] [facility] 08/31/2024 13:25:15 08/24/20 24 Allergy Immunotherapy Injections completed LYNNE GONZALEZ [address], [place], [address], [place] [facility] 08/24/2024 14:27:51 08/17/20 24 Allergy Immunotherapy Injections completed AURELIO JOHN RN [address], [place], [address], [place] [facility] 08/17/2024 13:14:10 08/10/20 24 Allergy Immunotherapy Injections completed LYNNE GONZALEZ [address], [place], [address], [place] [facility] 08/10/2024 13:32:07 08/02/20 24 Allergy Immunotherapy Injections completed AURELIO JOHN RN [address] [facility] [address], [place], [address], [place] [facility] 08/02/2024 14:02:59 07/27/20 24 Allergy Immunotherapy Injections completed LYNNE VALLADARES [address], [place], [address], [place] [facility] 07/27/2024 13:30:48 07/20/20 24 Allergy Immunotherapy Injections completed LYNNE GONZALEZ [address], [place], [address], [place] [facility] 07/20/2024 13:04:29 07/13/20 24 Allergy Immunotherapy Injections completed AURELIO JOHN RN [address] [facility] [address], [place], [address], [place] [facility] 07/13/2024 13:55:03 07/06/20 24 Allergy Immunotherapy Injections completed LYNNE GONZALEZ [address], [place], [address], [place] [facility] 07/06/2024 14:54:25 06/29/20 24 Allergy Immunotherapy Injections completed AURELIO JOHN RN [address], [place], [address], [place] [facility] 06/29/2024 14:42:23 06/22/20 24 Allergy Immunotherapy Injections completed JEANIE COHEN, RMA [address], [place], [address], [place] [facility] 06/22/2024 14:02:42 06/15/20 24 Allergy Immunotherapy Injections completed JEANIE COHEN, RMA [address], [place], [address], [place] [facility] 06/15/2024 14:20:31 06/08/20 24 Allergy Immunotherapy Injections completed JEANIE COHEN, RMA [address], [place], [address], [place] [facility] 06/08/2024 14:11:02 06/01/20 24 Allergy Immunotherapy Injections completed LYNNE GONZALEZ [address] [facility], [place], [address], [place] [facility] 06/01/2024 12:54:58 05/25/20 24 Allergy Immunotherapy Injections completed LYNNE GONZALEZ [address], [place], [address], [place] [facility] 05/25/2024 13:28:52 05/18/20 24 Allergy Immunotherapy Injections completed AURELIO JOHN RN [address], [place], [address], [place] [facility] 05/18/2024 14:23:29 05/11/20 24 Allergy Immunotherapy Injections completed LYNNE GONZALEZ [address], [place], [address], [place] [facility] 05/11/2024 13:14:45 05/04/20 24 Allergy Immunotherapy Injections completed JEANIE COHEN, RMA [address], [place], [address], [place] [facility] 05/04/2024 13:16:30 04/27/20 24 Allergy Immunotherapy Injections completed FELIX ERICA, A [address] [address], [place], [address], [place] [facility] 04/27/2024 13:07:12 04/20/20 24 Allergy Immunotherapy Injections completed FELIXYolande MALDONADO A [address],[facility] [address], [place], [address], [place] [facility] 04/20/2024 13:14:24 04/13/20 24 Allergy Immunotherapy Injections completed JEANIE BUTLERLizandro, RMA [address], [place], [address], [place] [facility] 04/13/2024 15:10:38 Imaging Results None recorded. Procedure Notes None recorded. Medical Equipment None Reported. Medications Name Sig Start Date Stop Date Status Note LastModified by Organization Details LastModified Time cyclobenzap rine 10 mg tablet active Not Available Not Available Not Available atorvastati n 40 mg tablet TAKE 1 TABLET BY MOUTH AT BEDTIME FOR 90 DAYS active Not Available Not Available No t Available metformin 500 mg tablet TAKE 1 TABLET BY MOUTH EVERY DAY active Not Available Not Available No t Available naproxen 375 mg tablet TAKE 1 TABLET BY MOUTH 2 TIMES A DAY NEEDED FOR PAIN active Not Available Not Available No t Available trazodone 50 mg tablet TAKE 1 TABLET BY MOUTH EVERY DAY AT BEDTIME NEEDED FOR SLEEP active Not Available Not Available No t Available naproxen 250 mg tablet 08/07 completed Not Available Not Available Not Available citalopram 20 mg tablet TAKE 1 TABLET BY MOUTH EVERY DAY active Not Available Not Available No t Available epinephrine 0.3 mg/0.3 mL injection, auto-inject or INJECT INTRAMUSC ULARLY DIRECTED ON PACKAGE AND GO TO EMERGENCY ROOM active Not Available Not Available No t Available betamethaso ne dipropionat e 0.05 % lotion APPLY TOPICALLY TO SCALP TWICE DAILY NEEDED FOR FLARE. DECREASE WHEN SYMPTOMS IMPROVE active Not Available Not Available No t Available Vitamin D3 25 mcg (1,000 unit) capsule TAKE 1 CAPSULE BY MOUTH ONCE DAILY active Not Available Not Available No t Available Januvia 25 mg tablet TAKE 1 TABLET BY MOUTH DAILY active Not Available Not Available No t Available Januvia active Not Available Not Avail able Not Available Jardiance 10 mg tablet TAKE 1 [...] Diagnosis SNOMED-CT Code Diagnosis ICD10 Code Diagnosis IMO Codes Diagnosis Note [id number] JEANIE COHEN RMA Allergy [address] [facility] [address] [place] [address] 08/16/2025 12:45:07 08/16/2025 13:09:16 Perennial allergic rhinitis [id number] J30.89 04437 FELIX MALDONADO A Allergy [address] [facility] [address] [place] [address] 08/23/2025 12:37:23 08/23/2025 13:29:10 Perennial allergic rhinitis [id number] J30.89 52412 JEANIE COHEN RMA Allergy [address] [facility] [address] [place] [address] 08/30/2025 12:41:49 08/30/2025 13:25:19 Perennial allergic rhinitis [id number] J30.89 75964 FELIX ERICA A Allergy [address] [facility] [address] [place] [address] 09/06/2025 12:56:53 09/06/2025 13:05:29 Perennial allergic rhinitis [id number] J30.89 96306 Shawanda Vaughn Allergy [address] [facility] [address] [place] [address] 09/13/2025 12:53:11 09/13/2025 13:29:25 Perennial allergic rhinitis [id number] J30.89 Health Concerns Section Related Observation LastModified by Organization Detai ls LastModified Time None Recorded Concern Status LastModified by Organization Details LastModified Time None Recorded Payers Encounter Date Sequence Insurance Name Policy Number Policy Siddiqui Covered Member ID Siddiqui Member ID Guarantor Name 09/13/2025 1 [facility] - DOS ON OR AFTER 2023 - ONE CARE (MEDICARE REPLACEMENT/ADV ANTAGE - HMO) Karyn Breaux [id number] Karyn Coates [facility] Episode No OBEpisode recorded.
--- OUTSIDE RECORDS SUMMARY | 2025-09-18 21:23 | XMS_ITS | Data Portability ---
Author Organization [place] [facility], Allergy Address [address] [address] Care Team Providers Care Formula Clerk Name Role Phone CAROLANN PEREIRA Primary Care Provider [phone] Assessment Encounter Date Assessment Date Assessment LastModified by Organization Details LastModified Time 08/16/2025 08/16/2025 Visit With: Shawanda Vaughn MA Use of Antihistamine s: No If yes: Vial Test Change in medications: No If yes Increase in asthma symptoms No Asthma Hx If yes, inhaler use: Reaction to last injections: No If yes: Allergy Symptoms: Other: Missed: Dose Aware of Vial Test Aware: Notes: Not available 08/16/2025 13:09:00 08/23/2025 08/23/2025 Visit With: Manisha Rasheed Use of Antihistamine s: No If yes: Vial Test Change in medications: No If yes Increase in asthma symptoms If yes, inhaler use: Reaction to last injections: Yes If yes: biweekly one reacted 5mm Allergy Symptoms: Other: Missed: Dose Repeated Aware of Vial Test Aware: Notes: [email or web address] Not available 08/23/2025 13:28:57 08/30/2025 08/30/2025 Visit With: LYNNE Valladares Use of Antihistamine s: No If yes: Vial Test Change in medications: No If yes Increase in asthma symptoms If yes, inhaler use: Reaction to last injections: No If yes: Allergy Symptoms: Other: Missed: Dose Aware of Vial Test Aware: Notes: [email or web address] Not available 08/30/2025 13:25:06 09/06/2025 09/06/2025 Visit With: Manisha Rasheed Use of Antihistamine s: No If yes: Vial Test Change in medications: No If yes Increase in asthma symptoms If yes, inhaler use: Reaction to last injections: No If yes: Allergy Symptoms: Other: Missed: Dose Aware of Vial Test Aware: Notes: Not available 09/06/2025 13:05:12 09/13/2025 09/13/2025 Visit With: Shawanda Vaughn MA [...] Organization Details Last Modified Time Details Appointments [facility]- Allergy f-up 6mon 2025 09:15A [...] Address Organization Details Recorded Time Allergic rhinitis 68760691 Active 023 S[facility] 4 RORY JO MD [address] [address], [place], [address], [facility] 09:46:48 Perennial allergic rhinitis [id number] Active 024 MANISHA RASHEED [facility] [address] [address], [place], [address], [facility] 13:03:45 Problem Notes None recorded. Procedures Surgical History Date Name Laterality Status Provider Name and Address Organization Details Recorded Time 09/13/20 25 Allergy Immunotherapy Injections completed JEANIE COHEN [facility] 100 [facility],[address], [address], [facility] - [facility] 09/13/2025 13:28:44 09/06/20 25 Allergy Immunotherapy Injections completed MANISHA RASHEED RMA [address], [place], [address], [place] [facility] 09/06/2025 13:04:26 08/30/20 25 Allergy Immunotherapy Injections completed JEANIE COHEN RMA [address], [place], [address], [place] [facility] 08/30/2025 13:24:57 08/23/20 25 Allergy Immunotherapy Injections completed MANISHA RASHEED RMA [address], [place], [address], [place] [facility] 08/23/2025 13:28:17 08/16/20 25 Allergy Immunotherapy Injections completed Shawanda Vaughn [address], [place], [address], [place] [facility] 08/16/2025 13:08:50 08/07/20 25 Allergy Immunotherapy Injections completed WARREN GONZALEZA [address], [place], [address], [place] [facility] 08/07/2025 16:07:34 08/02/20 25 Allergy Immunotherapy Injections completed Shawanda Vaughn [address], [place], [address], [place] [facility] 08/02/2025 14:16:31 07/26/20 25 Allergy Immunotherapy Injections completed WARREN GONZALEZA [address], [place], [address], [place] [facility] 07/26/2025 14:25:49 07/19/20 25 Allergy Immunotherapy Injections completed MANISHA RASHEED RMA [address], [place], [address], [place] [facility] 07/19/2025 14:56:07 07/12/20 25 Allergy Immunotherapy Injections completed Shawanda Vaughn [address], [place], [address], [place] [facility] 07/12/2025 13:27:40 07/05/20 25 Allergy Immunotherapy Injections completed Shawanda Vaughn [address], [place], [address], [place] [facility] 07/05/2025 13:09:48 06/28/20 25 Allergy Immunotherapy Injections completed AURELIO JOHN RN [address], [place], [address], [place] [facility] 06/28/2025 09:11:28 06/20/20 25 Allergy Immunotherapy Injections completed AURELIO JOHN RN [address], [place], [address], [place] [facility] 06/20/2025 13:09:15 06/14/20 25 Allergy Immunotherapy Injections completed LYNNE GONZALEZ [address], [place], [address], [place] [facility] 06/14/2025 13:12:22 06/07/20 25 Allergy Immunotherapy Injections completed LYNNE VALLADARES [address], [place], [address], [place] [facility] 2025 15:32:50 05/30/20 25 Allergy Immunotherapy Injections completed LYNNE GONZALEZ [address], [place], [address], [place] [facility] 05/30/2025 09:48:41 05/24/20 25 Allergy Immunotherapy Injections completed LYNNE GONZALEZ [address], [place], [address], [place] [facility] 05/24/2025 14:18:30 05/17/20 25 Allergy Immunotherapy Injections completed JEANIE COHEN RMYolande [address], [place], [address], [place] [facility] 05/17/2025 13:15:00 05/10/20 25 Allergy Immunotherapy Injections completed LYNNE GONZALEZ [address], [place], [address], [place] [facility] 05/10/2025 13:38:30 05/03/20 25 Allergy Immunotherapy Injections completed AURELIO JOHN RN [address], [place], [address], [place] [facility] 05/03/2025 13:08:10 04/26/20 25 Allergy Immunotherapy Injections completed LYNNE GONZALEZ [address], [place], [address], [place] [facility] 04/26/2025 15:19:52 04/19/20 25 Allergy Immunotherapy Injections completed LYNNE VALLADARES [address], [place], [address], [place] [facility] 04/19/2025 13:23:02 04/12/20 25 Allergy Immunotherapy Injections completed AURELIO JOHN RN [address], [place], [address], [place] [facility] 04/12/2025 13:42:59 04/05/20 25 Allergy Immunotherapy Injections completed LYNNE VALLADARES [address] [place] [address], [address], [place] [facility] 04/05/2025 13:48:39 03/29/20 25 Allergy Immunotherapy Injections completed AURELIO JOHN RN [address] [place] [address], [address], [place] [facility] 03/29/2025 13:10:29 03/22/20 25 Allergy Immunotherapy Injections completed LYNNE GONZALEZ [address] [place] [address], [address], [place] [facility] 03/22/2025 13:24:49 03/15/20 25 Allergy Immunotherapy Injections completed JEANIE COHEN RMA [address], [place], [address], [place] [facility] 03/15/2025 13:35:42 03/08/20 25 Allergy Immunotherapy Injections completed AURELIO JOHN RN [address], [place], [address], [place] [facility] 03/08/2025 13:11:36 03/01/20 25 Allergy Immunotherapy Injections completed JEANIE VILLATOROZEC, RMA [address], [place], [address], [place] [facility] 03/01/2025 14:52:03 02/22/20 25 Allergy Immunotherapy Injections completed MANISHA RASHEED, RMA [address], [place], [address], [place] [facility] 02/21/2025 13:06:45 02/16/20 25 Allergy Immunotherapy Injections completed JEANIE VILLATOROZEC, RMA [address], [place], [address], [place] [facility] 02/15/2025 13:15:30 02/09/20 25 Allergy Immunotherapy Injections completed JEANIE KORZEC, RMA [address], [place], [address], [place] [facility] 02/08/2025 15:15:04 02/01/20 25 Allergy Immunotherapy Injections completed JEANIE BUTLERC, RMA [address], [place], [address], [place] [facility] 01/31/2025 08:56:58 01/25/20 25 Allergy Immunotherapy Injections completed JEANIE BUTLERC, RMA [address], [place], [address], [place] [facility] 01/25/2025 13:42:26 01/15/20 25 Allergy Immunotherapy Injections completed AURELIO JOHN RN [address], [place], [address], [place] [facility] 01/15/2025 13:27:54 01/04/20 25 Allergy Immunotherapy Injections completed MANISHA RASHEED RMA [address], [place], [address], [place] [facility] 01/04/2025 13:55:01 12/28/19 25 Allergy Immunotherapy Injections completed AURELIO JOHN RN [address], [place], [address], [place] [facility] 12/28/2024 13:18:51 12/21/19 25 Allergy Immunotherapy Injections completed AURELIO JOHN RN [address], [place], [address], [place] [facility] 01/09/2025 13:31:55 12/14/19 25 Allergy Immunotherapy Injections completed WARREN GONZALEZA [address], [place], [address], [place] [facility] 12/14/2024 13:40:44 12/07/19 25 Allergy Immunotherapy Injections completed JEANIE COHEN, RMA [address], [place], [address], [place] [facility] 12/07/2024 13:07:37 11/30/19 25 Allergy Immunotherapy Injections completed LYNNE GONZALEZ [address], [place], [address], [place] [facility] 11/30/2024 09:42:31 11/23/20 24 Allergy Immunotherapy Injections completed AURELIO JOHN RN [address] [facility], [place], [address], [place] [facility] 11/23/2024 10:42:45 11/16/20 24 Allergy Immunotherapy Injections completed AURELIO JOHN RN [address] [place] [address], [address], [place] [facility] 11/16/2024 16:15:27 11/09/20 24 Allergy Immunotherapy Injections completed LYNNE GONZALEZ [address], [place], [address], [place] [facility] 11/09/2024 13:24:10 11/02/20 24 Allergy Immunotherapy Injections completed LYNNE GONZALEZ [address], [place], [address], [place] [facility] 11/02/2024 13:09:40 10/24/20 24 Allergy Immunotherapy Injections completed AURELIO JONH RN [address], [place], [address], [place] [facility] 10/24/2024 09:19:27 10/19/20 24 Allergy Immunotherapy Injections completed MANISHA RASHEED, RMA [address], [place], [address], [place] [facility] 10/19/2024 13:27:58 10/12/20 24 Allergy Immunotherapy Injections completed JEANIE COHEN, RMA [address], [place], [address], [place] [facility] 10/12/2024 13:15:15 10/05/20 24 Allergy Immunotherapy Injections completed JEANIE COHEN, RMA [address], [place], [address], [place] [facility] 10/05/2024 14:07:24 09/28/20 24 Allergy Immunotherapy Injections completed JEANIE COHEN, RMA [address], [place], [address], [place] [facility] 09/28/2024 13:11:21 09/21/20 24 Allergy Immunotherapy Injections completed AURELIO JOHN RN [address] [place] [address], [address], [place] [facility] 09/21/2024 13:10:06 09/14/20 24 Allergy Immunotherapy Injections completed AURELIO JOHN RN [address] [place] [address], [address], [place] [facility] 09/14/2024 13:32:46 09/07/20 24 Allergy Immunotherapy Injections completed JEANIE COHEN, RMA [address], [place], [address], [place] [facility] 09/07/2024 13:20:23 08/31/20 24 Allergy Immunotherapy Injections completed MANISHA RASHEED RMYolande [address], [place], [address], [place] [facility] 08/31/2024 13:25:15 08/24/20 24 Allergy Immunotherapy Injections completed WARREN GONZALEZA [address], [place], [address], [place] [facility] 08/24/2024 14:27:51 08/17/20 24 Allergy Immunotherapy Injections completed AURELIO JOHN RN [address], [place], [address], [place] [facility] 08/17/2024 13:14:10 08/10/20 24 Allergy Immunotherapy Injections completed LYNNE GONZALEZ [address], [place], [address], [place] [facility] 08/10/2024 13:32:07 08/02/20 24 Allergy Immunotherapy Injections completed AURELIO JOHN RN [address], [place], [address], [place] [facility] 08/02/2024 14:02:59 07/27/20 24 Allergy Immunotherapy Injections completed LYNNE VALLADARES [address], [place], [address], [place] [facility] 07/27/2024 13:30:48 07/20/20 24 Allergy Immunotherapy Injections completed LYNNE GONZALEZ [address], [place], [address], [place] [facility] 07/20/2024 13:04:29 07/13/20 24 Allergy Immunotherapy Injections completed AURELIO JOHN RN [address], [place], [address], [place] [facility] 07/13/2024 13:55:03 07/06/20 24 Allergy Immunotherapy Injections completed LYNNE GONZALEZ [address], [place], [address], [place] [facility] 07/06/2024 14:54:25 06/29/20 24 Allergy Immunotherapy Injections completed AURELIO JOHN RN [address], [place], [address], [place] [facility] 06/29/2024 14:42:23 06/22/20 24 Allergy Immunotherapy Injections completed LYNNE VALLADARES [address], [place], [address], [place] [facility] 06/22/2024 14:02:42 06/15/20 24 Allergy Immunotherapy Injections completed JEANIE COHEN, RMA [address], [place], [address], [place] [facility] 06/15/2024 14:20:31 06/08/20 24 Allergy Immunotherapy Injections completed JEANIE COHEN, RMA [address], [place], [address], [place] [facility] 06/08/2024 14:11:02 06/01/20 24 Allergy Immunotherapy Injections completed MANISHA RASHEED RMA [address], [place], [address], [place] [facility] 06/01/2024 12:54:58 05/25/20 24 Allergy Immunotherapy Injections completed LYNNE GONZALEZ [address], [place], [address], [place] [facility] 05/25/2024 13:28:52 05/18/20 24 Allergy Immunotherapy Injections completed AURELIO JOHN RN [address] [place] [address], [address], [place] [facility] 05/18/2024 14:23:29 05/11/20 24 Allergy Immunotherapy Injections completed LYNNE GONZALEZ [address], [place], [address], [place] [facility] 05/11/2024 13:14:45 05/04/20 24 Allergy Immunotherapy Injections completed JEANIE COHEN RMA [address], [place], [address], [place] [facility] 05/04/2024 13:16:30 04/27/20 24 Allergy Immunotherapy Injections completed LYNNE GONZALEZ [address], [place], [address], [place] [facility] 04/27/2024 13:07:12 04/20/20 24 Allergy Immunotherapy Injections completed LYNNE GONZALEZ [address], [place], [address], [place] [facility] 04/20/2024 13:14:24 04/13/20 24 Allergy Immunotherapy Injections completed [facility] 100 [facility] 100, [place], [address], [place] [facility] 04/13/2024 15:10:38 Imaging Results None recorded. [...] ICD10 Code Diagnosis IMO Codes Diagnosis Note [id number] AURELIO JOHN RN Allergy 100 [facility],[address] [place] [address] 04/13/2024 13:49:07 04/16/2024 15:28:43 Perennial allergic rhinitis [id number] J30.89 1501 MANISHA RASHEED A Allergy [facility],[address] [place] [address] 04/20/2024 13:13:03 04/20/2024 13:35:44 Perennial allergic rhinitis [id number] J30.89 2264 [facility], RMA Allergy [facility],[address] [place] [address] 04/27/2024 12:48:04 04/27/2024 15:21:46 Perennial allergic rhinitis [id number] J30.89 3272 [facility], RMA Allergy [facility],[address] [place] [address] 05/04/2024 12:59:34 05/04/2024 14:52:12 Perennial allergic rhinitis [id number] J30.89 4131 MANISHA RASHEED A Allergy 100 [facility],[address] [place] [address] 05/11/2024 13:13:42 05/11/2024 15:25:07 Perennial allergic rhinitis [id number] J30.89 [id number] AURELIO JOHN RN Allergy [address] [place] [address],[address] [place] [address] 05/18/2024 14:22:33 05/18/2024 15:08:07 Perennial allergic rhinitis [id number] J30.89 6046 MANISHA RASHEED A Allergy 100 [facility],[address] [place] [address] 05/25/2024 13:27:13 05/25/2024 13:41:45 Perennial allergic rhinitis [id number] J30.89 [id number] MANISHA RASHEED A Allergy [facility],[address] [place] [address] 06/01/2024 12:48:05 06/01/2024 15:33:30 Perennial allergic rhinitis [id number] J30.89 7722 [facility], RMA Allergy [address] [facility],[address] [place] [address] 06/08/2024 12:47:14 06/08/2024 14:32:12 Perennial allergic rhinitis [id number] J30.89 8744 [facility], RMA Allergy [address] [facility],[address] [place] [address] 06/15/2024 12:51:49 06/25/2024 11:20:18 Perennial allergic rhinitis [id number] J30.89 [id number] [facility], RMA Allergy [facility],[address] [place] [address] 06/22/2024 13:00:09 06/22/2024 14:03:34 Perennial allergic rhinitis [id number] J30.89 [id number] AURELIO JOHN RN Allergy [address] [place] [address],[address] [place] [address] 06/29/2024 12:54:25 06/29/2024 14:42:43 Perennial allergic rhinitis [id number] J30.89 [id number] MANISHA RASHEED A Allergy [address] [place] [address],[address] [place] [address] 07/06/2024 12:47:38 07/06/2024 15:05:42 Perennial allergic rhinitis [id number] J30.89 [id number] AURELIO JOHN RN Allergy 100 [facility],[address] [place] [address] 07/13/2024 12:54:46 07/13/2024 13:55:58 Perennial allergic rhinitis [id number] J30.89 [id number] MANISHA RASHEED A Allergy 100 [facility],[address] [place] [address] 07/20/2024 12:49:49 07/20/2024 13:45:01 Perennial allergic rhinitis [id number] J30.89 [id number] MANISHA RASHEED A Allergy [facility],[address] [place] [address] 07/27/2024 12:47:02 07/27/2024 13:31:34 Perennial allergic rhinitis [id number] J30.89 [id number] RORY JO MD [facility] [place] 100 [facility] [place] [address] 08/02/2024 09:12:21 08/02/2024 09:44:01 Allergic rhinitis [id number] J30.89 [id number] [facility], A Allergy 100 [facility],[address] [place] [address] 08/02/2024 14:01:50 08/02/2024 14:03:28 Perennial allergic rhinitis [id number] J30.89 [id number] [facility], A Allergy 100 [facility],[address] [place] [address] 08/10/2024 12:50:22 08/10/2024 14:36:29 Perennial allergic rhinitis [id number] J30.89 [id number] MANISHA RASHEED [facility] Allergy [address] [place] [address],[address] [place] [address] 08/17/2024 12:50:42 08/17/2024 13:14:39 Perennial allergic rhinitis [id number] J30.89 [id number] [facility], A Allergy 100 [facility],[address] [place] [address] 08/24/2024 12:50:49 09/03/2024 16:56:32 Perennial allergic rhinitis [id number] J30.89 [id number] AURELIO JOHN RN Allergy 100 [facility],[address] [place] [address] 08/31/2024 12:58:59 08/31/2024 13:43:15 Perennial allergic rhinitis [id number] J30.89 [id number] MANISHA RASHEED [facility] Allergy 100 [facility],[address] [place] [address] 09/07/2024 12:43:37 09/07/2024 13:21:11 Perennial allergic rhinitis [id number] J30.89 [id number] MANISHA RASHEED [facility] Allergy 100 [facility],[address] [place] [address] 09/14/2024 12:51:56 09/14/2024 13:33:06 Perennial allergic rhinitis [id number] J30.89 [id number] AURELIO JOHN RN Allergy 100 [facility],[address] [place] [address] 09/21/2024 12:55:36 09/21/2024 13:10:35 Perennial allergic rhinitis [id number] J30.89 [id number] MANISHA RASHEED A Allergy 100 [facility],[address] [place] [address] 09/28/2024 12:56:44 09/28/2024 13:11:53 Perennial allergic rhinitis [id number] J30.89 [id number] [facility], A Allergy 100 [facility],[address] [place] [address] 10/05/2024 12:49:27 10/05/2024 14:07:55 Perennial allergic rhinitis [id number] J30.89 [id number] [facility], A Allergy [address] [place] [address],[address] [place] [address] 10/12/2024 12:37:30 10/12/2024 13:16:02 Perennial allergic rhinitis [id number] J30.89 [id number] MANISHA RASHEED [facility] Allergy [address] [place] [address],[address] [place] [address] 10/19/2024 12:51:28 10/19/2024 13:35:48 Perennial allergic rhinitis [id number] J30.89 [id number] AURELIO JOHN RN Allergy [address] [place] [address],[address] [place] [address] 10/24/2024 08:48:01 10/24/2024 09:20:42 Perennial allergic rhinitis [id number] J30.89 [id number] MANISHA RASHEED A Allergy [address] [place] [address],[address] [place] [address] 11/02/2024 12:35:48 11/02/2024 13:11:03 Perennial allergic rhinitis [id number] J30.89 [id number] MANISHA RASHEED A Allergy 100 [facility],Jean Baptiste ite [address] [place] [address] 11/09/2024 13:22:54 11/09/2024 13:32:50 Perennial allergic rhinitis [id number] J30.89 [id number] MANISHA RASHEED [facility] Allergy 100 [facility],Jean [place]iste ite [address] [place] [address] 11/16/2024 12:45:31 11/16/2024 16:16:04 Perennial allergic rhinitis [id number] J30.89 [id number] MANISHA RASHEED [facility] Allergy [address] [place] [address],Jean [place]iste it[address] [place] [address] 11/23/2024 09:01:47 11/23/2024 10:43:09 Perennial allergic rhinitis [id number] J30.89 [id number] MANISHA RASHEED [facility] Allergy [address] [place] [address],Jean [place]iste ite [address] [place] [address] 11/30/2024 08:49:59 11/30/2024 09:43:05 Perennial allergic rhinitis [id number] J30.89 [id number] [facility] [address] [place] [address],Jean [place]iste ite [address] [place] [address] 12/07/2024 12:38:55 12/07/2024 13:08:04 Perennial allergic rhinitis [id number] J30.89 [id number] [facility] [address] [place] [address],Jean [place]iste it[address] [place] [address] 12/14/2024 12:46:29 12/14/2024 13:18:17 Perennial allergic rhinitis [id number] J30.89 [id number] AURELIO JOHN diversity specialist [address] [place] [address],Jean [place]iste it[address] [place] [address] 12/21/2024 12:56:31 12/21/2024 17:52:41 Perennial allergic rhinitis [id number] J30.89 [id number] MANISHA RASHEED [facility] Allergy [address] [place] [address],Jean [place]iste it[address] [place] [address] 12/28/2024 12:49:18 12/28/2024 13:19:16 Perennial allergic rhinitis [id number] J30.89 [id number] MANISHA RASHEED [facility] Allergy [address] [place] [address],Jean [place]iste it[address] [place] [address] 01/04/2025 13:54:14 01/04/2025 13:55:34 Perennial allergic rhinitis [id number] J30.89 [id number] [facility], A Allergy [address] [place] [address],Jean [place]iste it[address] [place] [address] 01/15/2025 12:52:43 01/15/2025 13:28:53 Perennial allergic rhinitis [id number] J30.89 60976 [facility], A Allergy [address] [place] [address], ite [address] [place] [address] 01/25/2025 12:46:17 01/25/2025 13:42:55 Perennial allergic rhinitis [id number] J30.89 [id number] RORY JO MD ENTS of [facility] [place] [address] [place] [address] [place] [address] 01/31/2025 08:46:53 01/31/2025 09:17:03 Allergic rhinitis [id number] J30.89 [id number] [facility], A Allergy [address] [place] [address] ite [address] [place] [address] 01/31/2025 08:47:17 01/31/2025 08:57:54 Perennial allergic rhinitis [id number] J30.89 [id number] MANISHA ERICA [facility] Allergy [address] [place] [address] ite [address] [place] [address] 02/08/2025 12:52:42 02/08/2025 15:18:45 Perennial allergic rhinitis [id number] J30.89 [id number] AURELIO JOHN RN Allergy [address] [place] [address] it[address] [place] [address] 02/15/2025 12:47:47 02/15/2025 13:15:48 Perennial allergic rhinitis [id number] J30.89 [id number] MANISHA RASHEED [facility] Allergy [address] [place] [address], ite [address] [place] [address] 02/21/2025 12:38:19 02/21/2025 13:07:15 Perennial allergic rhinitis [id number] J30.89 [id number] [facility], A Allergy [address] [place] [address], it[address] [place] [address] 03/01/2025 12:43:52 03/01/2025 14:52:22 Perennial allergic rhinitis [id number] J30.89 [id number] MANISHA RASHEED, [facility] Allergy [address] [place] [address],Jean [place]iste [address] [place] [address] 03/08/2025 12:42:06 03/08/2025 13:12:07 Perennial allergic rhinitis [id number] J30.89 [id number] [facility], A Allergy [address] [place] [address],Jean [place]iste [address] [place] [address] 03/15/2025 12:59:13 03/15/2025 13:36:39 Perennial allergic rhinitis [id number] J30.89 [id number] MANISHA RASHEED [facility] Allergy [address] [place] [address],[place] [address] [place] [address] 03/22/2025 12:43:51 03/22/2025 13:25:16 Perennial allergic rhinitis [id number] J30.89 [id number] AURELIO JOHN RN Allergy [address] [place] [address], it[address] [place] [address] 03/29/2025 12:38:19 03/29/2025 13:10:54 Perennial allergic rhinitis [id number] J30.89 [id number] [facility], A Allergy [address] [place] [address],Jean [place]iste [address] [place] [address] 04/05/2025 12:43:46 04/05/2025 13:49:26 Perennial allergic rhinitis [id number] J30.89 [id number] AURELIO JOHN RN Allergy [address] [place] [address],[address] [place] [place] [address] 04/12/2025 12:55:34 04/12/2025 13:43:25 Perennial allergic rhinitis [id number] J30.89 [id number] [facility]ANIE [facility]INGFORMERLY [facility], A Allergy [address] [place] [address],Jean [place]iste [address] [place] [address] 04/19/2025 12:41:56 04/19/2025 13:23:45 Perennial allergic rhinitis [id number] J30.89 [id number] MANISHA RASHEED [facility] Allergy [address] [place] [address],Jean [place]iste [address] [place] [address] 04/26/2025 15:18:29 04/26/2025 15:39:11 Perennial allergic rhinitis [id number] J30.89 54349 AURELIO JOHN RN Allergy [address] [place] [address] it[address] [place] [address] 05/03/2025 13:07:18 05/03/2025 13:08:30 Perennial allergic rhinitis [id number] J30.89 [id number] MANISHA RASHEED, [facility] Allergy [address] [place] [address], it[address] [place] [address] 05/10/2025 13:37:42 05/10/2025 13:39:05 Perennial allergic rhinitis [id number] J30.89 [id number] MANISHA RASHEED, [facility] Allergy [address] [place] [address] it[address] [facility] [address] 05/17/2025 12:38:39 05/17/2025 13:15:44 Perennial allergic rhinitis [id number] J30.89 [id number] MANISHA RASHEED, [facility] Allergy [address] [place] [address] ite [address] [facility] [place] [address] 05/24/2025 12:44:46 05/24/2025 14:59:43 Perennial allergic rhinitis [id number] J30.89 [id number] MANISHA RASHEED, [facility] Allergy [address] [place] [address] it[address] [place] [address] 05/30/2025 09:09:05 05/30/2025 09:49:07 Perennial allergic rhinitis [id number] J30.89 [id number] JEANIE BUTLER, [facility] Allergy [address] [place] [address], ite [address] [place] [address] 2025 12:44:27 2025 15:33:23 Perennial allergic rhinitis [id number] J30.89 [id number] MANISHA RASHEED, [facility] Allergy [address] [place] [address], it[address] [place] [address] 06/14/2025 12:41:24 06/14/2025 13:13:02 Perennial allergic rhinitis [id number] J30.89 [id number] AURELIO JOHN RN Allergy [address] [place] [address] [address] [place] [address] 06/20/2025 12:45:22 06/20/2025 13:09:36 Perennial allergic rhinitis [id number] J30.89 [id number] AURELIO JOHN RN Allergy [address] [place] [address] [address] [place] [address] 06/28/2025 08:39:52 06/28/2025 09:12:42 Perennial allergic rhinitis [id number] J30.89 [id number] JEANIE BUTLER, A Allergy [address] [place] [address] 100 [facility] [place] [address] 07/05/2025 12:32:15 07/05/2025 13:10:20 Perennial allergic rhinitis [id number] J30.89 [id number] MANISHA RASHEED [facility] Allergy [address] [place] [address] 100 [facility] [place] [address] 07/12/2025 12:37:16 07/12/2025 13:28:07 Perennial allergic rhinitis [id number] J30.89 [id number] MANISHA RASHEED [facility] Allergy [address] [place] [address] 100 [facility] [place] [address] 07/19/2025 12:55:15 07/19/2025 14:56:41 Perennial allergic rhinitis [id number] J30.89 [id number] MANISHA RASHEED [facility] Allergy [address] [place] [address] [address] [place] [address] 07/26/2025 12:47:19 07/26/2025 14:26:12 Perennial allergic rhinitis [id number] J30.89 [id number] AURELIO JOHN RN Allergy [address] [place] [address] [address] [place] [address] 08/02/2025 12:42:38 08/02/2025 13:25:59 Perennial allergic rhinitis [id number] J30.89 [id number] RORY JO MD [facility] of [facility] [place] [address] [place] [address], [place] [address] 08/07/2025 08:59:35 08/07/2025 09:28:57 Allergic rhinitis [id number] J30.89 [id number] JEANIE BUTLER, RMA [facility],[address] [place] [address] 08/07/2025 09:00:24 08/07/2025 16:08:09 Perennial allergic rhinitis [id number] J30.89 [id number] JEANIE BUTLER, RMA Allergy [facility] [place],[address] [place] [place] [address] 08/16/2025 12:45:07 08/16/2025 13:09:16 Perennial allergic rhinitis [id number] J30.89 [id number] MANISHA ERICA RMA Allergy 100 [facility],[address] [place] [place] [address] 08/23/2025 12:37:23 08/23/2025 13:29:10 Perennial allergic rhinitis [id number] J30.89 [id number] JEANIE BUTLER, RMA Allergy [facility] [place],[address] [place] [address] 08/30/2025 12:41:49 08/30/2025 13:25:19 Perennial allergic rhinitis [id number] J30.89 [id number] MANISHA ERICA RMA Allergy 100 [facility],Jean [address] [place] [address] 09/06/2025 12:56:53 09/06/2025 13:05:29 Perennial allergic rhinitis [id number] J30.89 [id number] Shawanda Vaughn Allergy 100 [facility],[address] [place] [address] 09/13/2025 12:53:11 09/13/2025 13:29:25 Perennial allergic rhinitis [id number] J30.89 Health Concerns Section Related Observation LastModified by Organization Detai ls LastModified Time None Recorded Concern Status LastModified by Organization Details LastModified Time None Recorded Advance Directives Directive None Recorded Payers Insurance Date Sequence Insurance Name Policy Number Policy Siddiqui Covered Member ID Siddiqui Member ID Guarantor Name 09/13/2025 [facility] CARE (MEDICARE REPLACEMENT/ADV ANTAGE - HMO) Karyn Breaux [id number] Karyn Coates 07/23/2025 1 [employer] - DOS ON OR AFTER 2023 - MEDICARE ADVANTAGE [place] (MEDICARE REPLACEMENT/ADV ANTAGE - PPO) Karyn Breaux [id number] Karyn Coates OBGyn Episode No OBEpisode recorded.
--- OUTSIDE RECORDS SUMMARY | 2025-09-18 21:23 | XMS_ITS | Clinical Summary ---
Author Organization [employer] Address [address] [facility] [address] [place] [address] Care Team Providers Care Starter Cup Powder Mixer Name Role Phone Unavailable Primary Care Provider [...] Encounters Date Type Department Care Team Description 08/28/2025 12:45 PM EDT Office Visit [facility] [address] [place] [address] Zeyad Romansa Dental calculus (Primary Dx); Dental plaque; Encounter for dental examination 08/14/2025 9:30 AM EDT Office Visit [facility] [address] [place] [address] Khalil-Dave Allison, DDS Dental caries (Primary Dx) 07/18/2025 9:00 AM EDT Office Visit [facility] [address] [place] [address] Khalil-Dave, Allison, DDS Recurrent dental caries extending [...] Sign Reading Time Taken Comments Blood Pressure 122/86 08/28/2025 12:59 PM EDT Pulse - - Temperature - - Respiratory Rate - - Oxygen Saturation - - Inhaled Oxygen Concentration - - Weight - - Height - - Body Mass Index - - Plan of Treatment Upcoming Encounters Date Type Department Care Team (Late st Contact Info) Description 02/27/2026 9:30 AM EDT Office Visit [facility] [address] [place] [address] Subha Roman Health Maintenance Due Date Last [...] 2015 Mammogram 2025 COVID-19 Vaccine (1 - 2023-2 5 season) 2025 Influenza Vaccine (#1) 2025 10/06/2021 Dental X-Ray: Bitewings 02/21/2026 02/20/2025 Dental Oral Exam 02/27/2026 08/28/2025, 02/20/2025 Dental Prophylaxis 02/27/2026 08/28/2025, 02/20/2025 Tobacco Screening 08/28/2026 08/28/2025 Dental X-Ray: Full Mouth 02/22/2028 02/20/2025 Zoster Vaccines (1 of 2) 2035 RSV Patients and Patients Aged 60 years or older (1 - [...] age to complete this topic Pneumococcal Vaccine: Pediatrics (0 to 5 Years) and At-Risk Patients (6 to 49) Years Aged Out No longer eligible b ased on patient's age to complete this topic RSV under 20 months Aged Out No longe r eligible based on patient's age to complete this topic Rotavirus Vaccines Aged Out No longer eligible based on patient's age to complete this topic Procedures Procedure Name Priority Date/Time Associated Diagnosis Comments 28 BB(V) RESIN-BASED COMPOSITE - 1 SURF, POSTERIOR Routine 08/28/2025 12:45 PM EDT CASE PRESENTATION, DETAILED AND EXTENSIVE TREATMENT PLANNING Routine 08/28/2025 12:45 PM EDT ORAL HYGIENE INSTRUCTIONS Routine 08/28/2025 12:45 PM EDT Dental calculus Dental plaque PROPHYLAXIS - ADULT Routine 08/28/2025 1 2:45 PM EDT Dental calculus Dental plaque PERIODIC ORAL EVALUATION - ESTABLISHED PATIENT Routine 08/28/2025 12:45 PM EDT CASE PRESENTATION, DETAILED AND EXTENSIVE TREATMENT PLANNING [...] EDT Recurrent dental caries extending into dentin INTRAORAL - COMPLETE SERIES OF RADIOGRAPHIC IMAGES Routine 02/20/2025 2:00 PM EDT from Last 3 Months or Most Recently Relevant to Health Maintenance Insurance DENTAL - [facility]
--- OUTSIDE RECORDS SUMMARY | 2025-09-18 21:24 | XMS_ITS | Encounter Summary ---
Author Organization [employer] [facility] Address [address] [facility] [address] [place] [address] Care Team Providers Care Jackaroo Name Role Phone Unavailable Primary Care Provider Unavailabl e Encounter Details Date Type Department Care Team (Late st Contact Info) Description 11/09/2022 Abstract [facility] [address] [place] [address] Allison Cordero DDS [address] [place] [address] Social History Tobacco Use Types Packs/Day Years [...] Description 02/27/2026 9:30 AM EDT Office Visit [facility] [address] [place] [address] Subha Roman documented as of this encounter Visit Diagnoses Not on filedocumented in this encounter
--- OUTSIDE RECORDS SUMMARY | 2025-09-18 21:24 | XMS_ITS | Encounter Summary ---
Author Organization [employer] [facility] Address [address] [facility] [address] [place] [address] Care Team Providers Care Leadership Recruiter Name Role Phone Unavailable Primary Care Provider Unavailabl e Encounter Details Date Type Department Care Team (Latest Contact Info) Description 11/07/2019 Abstract [facility] CONVERSIONS Dental, Provider, DDS Social History [...] Description 02/27/2026 9:30 AM EDT Office Visit [facility] [address] [place] [address] Subha Roman documented as of this encounter Visit Diagnoses Not on filedocumented in this encounter
--- OUTSIDE RECORDS SUMMARY | 2025-09-18 21:24 | XMS_ITS | Encounter Summary ---
Author Organization [employer] [facility] Address [address] [facility] [address] [place] [address] Care Team Providers Care Greeting Card Writer Name Role Phone Unavailable Primary Care Provider Unavailabl e Encounter Details Date Type Department Care Team (Latest Contact Info) Description 03/05/2022 Abstract [facility] Dental, Provider, DDS Social History [...] Description 02/27/2026 9:30 AM EDT Office Visit [facility] [address] [place] [address] Subha Roman documented as of this encounter Visit Diagnoses Not on filedocumented in this encounter
== END 2025-09-18 16:54 | disposition home or self-care (01) ==
LOC: HO.HMCH 15:09
PROVIDERS: PCP Internal Medicine; Visit Provider Internal Medicine
DX: F33.0 Major depressive disorder, recurrent, mild (principal); I10 Essential (primary) hypertension; E78.5 Hyperlipidemia, unspecified; E11.65 Type 2 diabetes mellitus with hyperglycemia; F51.04 Psychophysiologic insomnia

== ENCOUNTER → 2025-09-18 15:08 | Outpatient (BNVA) | payer OTHER, SELFPAY | PROVIDERS: PCP Internal Medicine; Visit Provider Internal Medicine | DX: I10 Essential (primary) hypertension (principal); E78.5 Hyperlipidemia, unspecified; F41.8 Other specified anxiety disorders; F33.0 Major depressive disorder, recurrent, mild; E11.65 Type 2 diabetes mellitus with hyperglycemia; F51.04 Psychophysiologic insomnia; Z79.899 Other long term (current) drug therapy | CPT/HCPCS: 83036; 99212 ==

== ENCOUNTER → 2025-10-10 09:44 | Outpatient (BNVA) | payer OTHER, SELFPAY | PROVIDERS: PCP Internal Medicine | DX: I10 Essential (primary) hypertension (principal) | CPT/HCPCS: 99211 ==